=== PATIENT | female | born 1955 | race Caucasian/White ===

== ENCOUNTER 2021-10-07 10:01 | Outpatient (REF) | payer MEDICARE, SELFPAY ==
[2021-10-07 11:26] LABS: MANUAL DIFF FLAG NO
[2021-10-07 11:34] LABS: Basophils Percent Auto 0.7 % (0-2); Hematocrit 41.6 % (37.0-47.0); Hemoglobin 13.7 g/dl (12.0-16.0); Imm Gran Abs Auto 0.02 X10*3/uL (0.00-0.03); Imm Gran Pct Auto 0.3 % (0.0-0.4); Lymphocytes Percent Auto 16.9 % (20-40); Mean Corpuscular HGB Conc 32.9 g/dl (31.0-35.0); Mean Corpuscular Hemoglobin 30.8 pg (27.0-33.0); Mean Corpuscular Volume 93.5 fL (80.0-98.0); Mean Platelet Volume 9.3 fL (9.4-12.3); Monocytes Absolute Auto 0.9 X10*3/uL (0.1-1.2); Monocytes Percent Auto 14.5 % (2-11); Neutrophils Absolute Auto 4.1 x10*3/uL (2.0-8.3); Neutrophils Percent Auto 67.6 % (45-73); Platelet Count 238 X10*3/uL (160-400); Red Blood Count 4.45 X10*6/uL (4.20-5.50); Red Cell Distribution Width 13.2 % (11.0-16.0); White Blood Count 6.1 X10*3/uL (4.8-10.8)
[2021-10-07 11:44] LABS: Appearance Urine HAZY; Color Urine YELLOW; Glucose Urine UA NEG (NEG); Leukocyte Esterase Urine NEG (NEG); Nitrite Urine NEG (NEG); PH 5.5 (5.0-8.0); Specific Gravity - Urine >= 1.030 (1.005-1.025); Urine Blood NEG (NEG); Urine Ketones 5 MG/DL (NEG); Urine Protein NEG (NEG-TRACE)
[2021-10-07 12:04] LABS: Alanine Aminotransferase 28 U/L (0-31); Albumin Level 3.8 g/dL (3.5-5.0); Alkaline Phosphatase 109 U/L (39-117); Anion Gap 13 (12-20); Aspartate Amino Transferase 34 U/L (5-31); Bilirubin Total 0.8 mg/dL (0.0-1.0); Blood Urea Nitrogen 23 mg/dL (9-16); Calcium 9.9 mg/dL (8.4-10.2); Carbon Dioxide 25 mmol/L (22-29); Chloride 107 mmol/L (96-108); Cholesterol 190 mg/dL; Estimated Glomerular Filt Rate > 60; Glucose Fasting 110 mg/dL (60-99); HDL Cholesterol 35 mg/dL; LDL Cholesterol Calculated 121 mg/dl; Potassium 4.3 mmol/L (3.3-5.1); Sodium 141 mmol/L (135-145); Total Protein 7.2 g/dL (6.5-8.0); Triglycerides 174 mg/dL
[2021-10-07 12:12] LABS: TSH reflex Free T4 3.04 uIU/mL (0.32-4.0)
[2021-10-07 12:13] LABS: Creatinine Urine 206.72 mg/dL; Microalbum/Creatinine Ratio Ur 8.2 ug/mg cr
[2021-10-07 12:20] LABS: Erythrocyte Sedimentation Rate 12 MM/HR (0-20)
== END 2021-10-07 10:02 | disposition home or self-care (01) ==
LOC: HO.WFDLDS 10:01
PROVIDERS: Visit Provider Family Medicine
DX: Z00.00 Encounter for general adult medical examination without abnormal findings (principal); M19.90 Unspecified osteoarthritis, unspecified site; I10 Essential (primary) hypertension
CPT/HCPCS: 36415; 80053; 80061; 81003; 82043; 84443; 85025; 85652

== ENCOUNTER 2022-08-10 12:33 | Outpatient (REF) | payer MEDICARE, SELFPAY ==
[2022-08-10 15:05] LABS: Alanine Aminotransferase 30 U/L (0-31); Albumin Level 3.7 g/dL (3.5-5.0); Alkaline Phosphatase 86 U/L (39-117); Anion Gap 11 (12-20); Aspartate Amino Transferase 29 U/L (5-31); Bilirubin Total 0.9 mg/dL (0.0-1.0); Blood Urea Nitrogen 29 mg/dL (9-16); Calcium 9.2 mg/dL (8.4-10.2); Carbon Dioxide 28 mmol/L (22-29); Chloride 108 mmol/L (96-108); Estimated Glomerular Filt Rate > 60; Glucose Random 142 mg/dL (60-115); Potassium 4.1 mmol/L (3.3-5.1); Sodium 143 mmol/L (135-145)
== END 2022-08-10 12:34 | disposition home or self-care (01) ==
LOC: HO.WFDLDS 12:33
PROVIDERS: Visit Provider Family Medicine
DX: M54.9 Dorsalgia, unspecified (principal)
CPT/HCPCS: 36415; 80053

== ENCOUNTER 2022-10-21 15:24 | Outpatient (REF) | payer MEDICARE, SELFPAY ==
[2022-10-21 17:07] LABS: Appearance Urine Clear; Color Urine Dark Yellow; Glucose Urine UA Negative (Negative); Leukocyte Esterase Urine Negative (Negative); Nitrite Urine Negative (Negative); Specific Gravity - Urine 1.015 (1.005-1.025); Urine Blood Negative (Negative); Urine Ketones Negative (Negative); Urine Protein Negative (Neg-Trace)
== END 2022-10-21 15:25 | disposition home or self-care (01) ==
LOC: HO.LAB 15:24
PROVIDERS: Visit Provider Nurse Practitioner Family
DX: R10.9 Unspecified abdominal pain (principal)
CPT/HCPCS: 81003

== ENCOUNTER 2022-11-10 09:14 | Outpatient (REF) | payer MEDICARE, SELFPAY ==
[2022-11-10 11:15] LABS: MANUAL DIFF FLAG NO
[2022-11-10 11:31] LABS: Basophils Absolute Auto 0.1 X10*3/uL (0.0-0.2); Basophils Percent Auto 0.9 % (0-2); Eosinophils Percent Auto 0.2 % (0-4); Hematocrit 40.5 % (37.0-47.0); Hemoglobin 13.2 g/dl (12.0-16.0); Imm Gran Abs Auto 0.01 X10*3/uL (0.00-0.03); Imm Gran Pct Auto 0.2 % (0.0-0.4); Lymphocytes Absolute Auto 0.9 X10*3/uL (1.2-4.9); Mean Corpuscular HGB Conc 32.6 g/dl (31.0-35.0); Mean Corpuscular Hemoglobin 30.6 pg (27.0-33.0); Mean Corpuscular Volume 93.8 fL (80.0-98.0); Mean Platelet Volume 8.9 fL (9.4-12.3); Monocytes Absolute Auto 0.7 X10*3/uL (0.1-1.2); Monocytes Percent Auto 12.5 % (2-11); Neutrophils Absolute Auto 3.8 x10*3/uL (2.0-8.3); Neutrophils Percent Auto 69.2 % (45-73); Platelet Count 236 X10*3/uL (160-400); Red Blood Count 4.32 X10*6/uL (4.20-5.50); White Blood Count 5.5 X10*3/uL (4.8-10.8)
[2022-11-10 11:50] LABS: Alanine Aminotransferase 30 U/L (0-31); Albumin Level 3.7 g/dL (3.5-5.0); Alkaline Phosphatase 94 U/L (39-117); Anion Gap 14 (12-20); Aspartate Amino Transferase 41 U/L (5-31); Blood Urea Nitrogen 26 mg/dL (9-16); Calcium 9.1 mg/dL (8.4-10.2); Carbon Dioxide 23 mmol/L (22-29); Chloride 108 mmol/L (96-108); Estimated Glomerular Filt Rate > 60; Glucose Random 112 mg/dL (60-115); Potassium 4.1 mmol/L (3.3-5.1); Sodium 141 mmol/L (135-145)
[2022-11-10 12:09] LABS: Erythrocyte Sedimentation Rate 16 MM/HR (0-20)
== END 2022-11-10 09:15 | disposition home or self-care (01) ==
LOC: HO.WFDLDS 09:14
PROVIDERS: Visit Provider Family Medicine
DX: Z00.00 Encounter for general adult medical examination without abnormal findings (principal); M54.9 Dorsalgia, unspecified
CPT/HCPCS: 36415; 80053; 85025; 85652; 86141

== ENCOUNTER 2023-01-25 14:38 | Outpatient (AMB) | payer MEDICARE, SELFPAY ==
[2023-01-25 15:02] VITALS: BP 132/72; PULSE 96; O2SAT 96; BMI 29.1
--- NOTE | 2023-01-25 15:02 | A.OFFPC_ITS ---
Vital Signs 01/25/23 15:02 Height 5 ft 1 in Weight 154 lb 2 oz BMI 29.1 BP 132/72 Blood Pressure Location Lt brachial Position Sitting Pulse 96 Pulse Source Pulse Oximeter Pulse Oximetry (%) 96 Oxygen Delivery Method Room Air Intake Visit Reasons: f/u htn & chronic conditions Intake Note: Patient is here for follow up on hypertension and chronic conditions, patient is complaining of pain all over her body. Allergies No Known Allergies Allergy (Verified 01/25/23 15:04) Tobacco use date assessed: 01/25/23 Fall risk assessment: No Falls in past year Last assessed Fall Risk: 01/25/23 Dental Screening Dental Screen Date: 01/25/23 Did you have a dental visit in the last 12 months?: Yes Did you have a dental problem in the last 6 months where you did not have access to dental care?: No Was dental information given to patient?: No HPI f/u htn & chronic conditions HPI Details 67 y/o female presents to f/u hypertension and chronic conditions. Blood pressure today is 132/72. She is on irbesartan 150 mg and metoprolol 12.5mg daily. She reports she has not been able to tolerate the cymbalta for her pain/depression - she reports it had upset her stomach. [facility] Medical History Diverticulitis History of kidney stones History of shingles Surgical History H/O arthroscopic knee surgery History of carpal tunnel surgery History of hernia surgery History of hysterectomy History of tubal ligation Social History Housing: House Patient Tobacco Use Status: Former Tobacco user e-Cigarette/Vaping Use: Never Used Second Hand Smoke Exposure: No service: No Current occupational status: retired Current occupational exposures/hazards: No Cognitive needs: No Hearing needs: No Vision needs: No Questionnaire Thrive Questionnaire Date Thrive assessed: 07/25/22 MILEAN-7 AMB Questionnaire MILENA-7 Date MILENA - 7 assessed: 07/25/22 Source: Developed by Drs. Elmo Barahona, Tory Anderson, Derick Sahni and colleagues, with an educational ramirez from [employer]. Review of Systems Const Denies chills, Denies fatigue, Denies fever(s), Denies headache(s) and Denies weakness ENT Denies dizziness and Denies headache(s) Card Denies chest pain, Denies lightheadedness, Denies dyspnea and Denies other (Palpitations) Resp Denies cough, Denies dyspnea, Denies wheezing and Denies other ( shortness of breath) Musc Denies numbness and Denies tingling Neuro Denies dizziness, Denies headache(s), Denies numbness, Denies tingling, Denies paresthesias and Denies weakness Psych Denies anxiety and Denies depression Endo Denies fatigue Aller/Immun Denies wheezing Physical exam (Primary Care) Vital Signs: Last Vital Signs Pulse 96 01/25/23 15:02 BP 132/72 01/25/23 15:02 Pulse Ox 96 01/25/23 15:02 Oxygen Delivery Method Room Air 01/25/23 15:02 BMI result Body Mass Index 29.1 Tobacco/Smoking Status: Tobacco use Status Tobacco use date assessed 01/25/23 01/25/23 15:11 Patient Tobacco Use Status Former Tobacco user 01/25/23 15:11 e-Cigarette/Vaping Use Never Used 01/25/23 15:03 Thrive Assessment: Date of Thrive Assessment Date Thrive assessed 07/25/22 01/25/23 15:03 Const General: no acute distress and well developed Nutritional Appearance: well nourished Orientation/consciousness: patient oriented x3 HENMT Head: Yes normocephalic and Yes atraumatic Eyes General: appearance normal, both eyes and all related structures Pupils: Equal, round and reactive pupils present EOM: EOMs intact bilaterally Resp Effort & Inspection: normal respiratory effort Auscultation: clear to auscultation bilaterally Cardio Rate: regular rate Rhythm: regular rhythm Heart sounds: S1 normal heart sound present, S2 normal heart sound present, no gallops, no murmurs and no rubs Neuro General: patient oriented x3 and gait normal Cranial nerves: Yes Equal, round and reactive pupils present Psych Affect: normal affect Assessment and Plan Assessment & Plan (1) Essential hypertension: Code(s): I10 - Essential (primary) hypertension Plan: Blood pressure is controlled. Goal is less than 140/90 Continue current medication regimen (2) Back pain: Code(s): M54.9 - Dorsalgia, unspecified Plan: History of fibromyalgia but also osteoarthritis and ongoing chronic back pain. She has appointment with rheumatology (3) Fibromyalgia: Code(s): M79.7 - Fibromyalgia Plan: Tried duloxetine but this bothered the patient's stomach Encouraged regular exercise Medications: Discontinued duloxetine Discontinued Reason: Patient no longer taking 20 mg (0.6667 x 30 mg) PO DAILY 30 days 20 caps 1RF M54.9 - Dorsalgia, unspecified, M79.7 - Fibromyalgia Coding Level of Care Code Est Pt Level 4 (29104) Diagnoses Essential hypertension I10 Back pain M54.9 Fibromyalgia M79.7
== END 2023-01-25 15:51 | disposition home or self-care (01) ==
PROVIDERS: PCP Family Medicine; Visit Provider Family Medicine
DX: I10 Essential (primary) hypertension (principal); M54.9 Dorsalgia, unspecified; M79.7 Fibromyalgia
CPT/HCPCS: 99214

== ENCOUNTER 2023-02-02 12:50 | Outpatient (AMB) | payer MEDICARE, SELFPAY ==
--- NOTE | 2023-02-02 12:59 | A.OFFVIS_ITS ---
Intake Vital Signs 02/02/23 13:01 Height 5 ft 1 in Weight 150 lb 9.211 oz BMI 28.4 BP 122/76 Blood Pressure Location Rt brachial Position Sitting Pulse 93 Pulse Source Pulse Oximeter Temp 98.3 F Temp Source Skin Pulse Oximetry (%) 96 Intake Visit Reasons: Dorsalgia Intake Note: New pt presents today for dorsalgia consult. [employer] Manager Required: No Accompanied by: Self / Same As Patient Allergies No Known Allergies Allergy (Verified 02/02/23 13:13) Medication List - Last Reconciled 02/02/23 by Octavio Padilla MD alendronate 70 mg PO QWEEK atorvastatin 80 mg PO DAILY 90 days mrdtgybnjs-clglcipchrrri-cfox 50-325-40 mg 1 - 2 tabs PO DAILY PRN 30 days diclofenac sodium 1% 4 grams topical QID 30 days gabapentin 100 mg PO BEDTIME PRN irbesartan 150 mg PO QAM 90 days metoprolol succinate ER 12.5 mg (1/2 x 25 mg) PO DAILY 90 days nabumetone 500 mg PO BID tramadol 25 mg (1/2 x 50 mg) PO DAILY PRN 14 days zolpidem 5 - 10 mg PO BEDTIME PRN HPI HPI Comments History of Present Illness Details This is a 67-year-old female who presents for evaluation of multiple joint pain. Patient stated that since 1976 she was diagnosed with rheumatoid arthritis after fluid was drained from her wrist. She has been following up with Rheumatology for many years. Patient is unaware whether she was ever on DMARDs. She cannot remember. Most recent he was evaluated by Dr. Smallwood and was told that she has burned out rheumatoid arthritis and her symptoms are due to osteoarthritis. Patient has had left thumb surgery for osteoarthritis. She states that her left foot toes are turning similar to the right foot, this has been ongoing for the last 6 months. She is having low back pain radiating to her right thigh as well as right groin pain. Patient is taking nabumetone currently. She was intermittently taking 25 mg of tramadol which provides some relief. she does not believe she was evaluated by Pain Management before. She broke her left wrist in 2016 which was treated non operatively. She was then st arted on alendronate which she took for about 6 months then stopped it due to GI upset. [facility] Medical History (Updated 02/02/23 @ 13:55 by Octavio Padilla MD) Diverticulitis History of kidney stones History of shingles Surgical History H/O arthroscopic knee surgery H/O hand surgery History of carpal tunnel surgery History of hernia surgery History of hysterectomy History of tubal ligation Family History Family/Other Family history of autoimmune disorder Social History Housing: House Patient Tobacco Use Status: Former Tobacco user e-Cigarette/Vaping Use: Never Used Second Hand Smoke Exposure: No service: No Current occupational status: retired Current occupational exposures/hazards: No Cognitive needs: No Hearing needs: No Vision needs: No Female Reproductive History Menstrual Total pregnancies: 5 Number of Living Children: 2 Ab induced: 2 Ab spontaneous: 1 Review of Systems Const Reports fatigue and Reports weakness Musc Reports back pain, Reports deformity, Reports arthralgias, Reports joint swelling and Reports stiffness Neuro Reports weakness Endo Reports fatigue Physical Exam Vital Signs: Last Vital Signs Temp 98.3 F 02/02/23 13:01 Pulse 93 02/02/23 13:01 BP 122/76 02/02/23 13:01 Pulse Ox 96 02/02/23 13:01 BMI result Body Mass Index 28.4 Const General: cooperative, healthy appearing and comfortable Nutritional Appearance: overweight Orientation/consciousness: patient oriented x3 Limitations: no limitations HEENT Head: Yes normocephalic and Yes atraumatic Mouth: moist mucous membranes Resp Effort & Inspection: normal respiratory effort and able to speak in complete sentences Auscultation: clear to auscultation bilaterally Cardio Rate: regular rate Neuro General: patient oriented x3 Extrem Other: Bilateral soft tissue swelling of wrists. Nontender to palpation. Slight wrist pain bilaterally with full flexion and extension Synovial thickening of her MCPs bilaterally., mild subluxation of PIP is, few Bomoseen neck deformities of both hands No tenderness about patient to her MCPs, PIP is. Negative MCP squeeze test bilaterally Normal range of motion of both elbows and shoulders without pain Right groin pain with hip flexion, adduction and external rotation. No ankle swelling , warmth or tenderness bilaterally Deformities of both toes with bunions, bunionette and fibular deviation bilaterally. Few MTP tenderness Assessment & Plan Assessment & Plan (1) Rheumatoid arthritis: Code(s): M06.9 - Rheumatoid arthritis, unspecified Plan: This is a 67-year-old female who presents for evaluation of multiple joint pain. She states that she was diagnosed with rheumatoid arthritis in 1976 after fluid was pulled from her right wrist. Patient cannot remember whether she was ever on DMARDs. On exam patient has multiple RA deformities, however her RA might be burnt out. She states however that her left foot toes are turning and this has been happening for the last 6 months. Will check labs to evaluate disease activity. The majority of her pain today however is likely due to osteoarthritis. the majority of patient's pain today is in her back and hip. Will check x-rays of involved joints. Referred patient to pain management to consider therapeutic interventions such as steroid injections. (2) Osteoporosis: Code(s): M81.0 - Age-related osteoporosis without current pathological fracture Plan: She had a left wrist fracture in 2017. She was on alendronate for 6 months then stopped due to GI upset. Alendronate was represcribed recently but patient isn't taking it regularly. She states that she cannot get a repeat DEXA scan until next year. Will check a DEXA scan next year and re-evaluate her bone density Plan I spent 47 minutes reviewing patient's chart, evaluating patient, ordering diagnostic workup, counseling patient and documenting in the chart Orders: Orders XR foot LT min 3V Today M06.9 - Rheumatoid arthritis, unspecified XR foot RT min 3V Today M06.9 - Rheumatoid arthritis, unspecified XR hand wrist LT Today M06.9 - Rheumatoid arthritis, unspecified XR hand wrist RT Today M06.9 - Rheumatoid arthritis, unspecified XR hip LT min 2V Today M06.9 - Rheumatoid arthritis, unspecified XR hip RT min 2V Today M06.9 - Rheumatoid arthritis, unspecified XR lumbar spine 4V min Today M06.9 - Rheumatoid arthritis, unspecified Complete Blood Count Auto Diff Today M06.9 - Rheumatoid arthritis, unspecified Comprehensive Met. Panel Today M06.9 - Rheumatoid arthritis, unspecified C Reactive Protein Today M06.9 - Rheumatoid arthritis, unspecified Erythrocyte Sedimentation Rate Today M06.9 - Rheumatoid arthritis, unspecified Hepatitis A,B,C Profile Today Z11.59 - Encounter for screening for other viral diseases Immunofixation Pnl, Serum Today M06.9 - Rheumatoid arthritis, unspecified Protein Electrophoresis, Serum Today M06.9 - Rheumatoid arthritis, unspecified T Spot TB Today Z11.7 - Encounter for testing for latent tuberculosis infection Rheumatoid Factor Today M06.9 - Rheumatoid arthritis, unspecified Cyclic Citrullinated Peptide Today M06.9 - Rheumatoid arthritis, unspecified Referrals Pain Management Referral M54.9 - Dorsalgia, unspecified Coding Level of Care Code New Pt Level 4 (95285) Diagnoses Rheumatoid arthritis M06.9 Osteoporosis M81.0
[2023-02-02 13:01] VITALS: BP 122/76; PULSE 93; TEMP 36.8; O2SAT 96; BMI 28.4
== END 2023-02-02 13:45 | disposition home or self-care (01) ==
PROVIDERS: PCP Family Medicine; Visit Provider Student in an Organized Health Care Education/Training Program
DX: M06.9 Rheumatoid arthritis, unspecified (principal); M81.0 Age-related osteoporosis without current pathological fracture
CPT/HCPCS: 99204

== ENCOUNTER → 2023-02-02 12:50 | Outpatient (BNVA) | payer MEDICARE, SELFPAY | PROVIDERS: PCP Family Medicine; Visit Provider Student in an Organized Health Care Education/Training Program | DX: M81.0 Age-related osteoporosis without current pathological fracture (principal); M06.9 Rheumatoid arthritis, unspecified | CPT/HCPCS: 99202 ==

== ENCOUNTER 2023-02-14 09:48 | Outpatient (REF) | payer MEDICARE, SELFPAY ==
[2023-02-14 11:28] LABS: MANUAL DIFF FLAG NO
[2023-02-14 12:01] LABS: Rheumatoid Factor < 13.0 IU/mL (<15.0)
[2023-02-14 12:02] LABS: Basophils Percent Auto 0.7 % (0-2); Eosinophils Percent Auto 0.5 % (0-4); Hematocrit 40.8 % (37.0-47.0); Hemoglobin 13.8 g/dl (12.0-16.0); Imm Gran Abs Auto 0.03 X10*3/uL (0.00-0.03); Imm Gran Pct Auto 0.5 % (0.0-0.4); Lymphocytes Absolute Auto 0.8 X10*3/uL (1.2-4.9); Lymphocytes Percent Auto 15.1 % (20-40); Mean Corpuscular HGB Conc 33.8 g/dl (31.0-35.0); Mean Corpuscular Hemoglobin 30.9 pg (27.0-33.0); Mean Corpuscular Volume 91.5 fL (80.0-98.0); Mean Platelet Volume 9.1 fL (9.4-12.3); Monocytes Absolute Auto 0.7 X10*3/uL (0.1-1.2); Monocytes Percent Auto 13.1 % (2-11); Neutrophils Absolute Auto 3.8 x10*3/uL (2.0-8.3); Neutrophils Percent Auto 70.1 % (45-73); Platelet Count 226 X10*3/uL (160-400); Red Blood Count 4.46 X10*6/uL (4.20-5.50); Red Cell Distribution Width 13.2 % (11.0-16.0); White Blood Count 5.5 X10*3/uL (4.8-10.8)
[2023-02-14 12:33] LABS: Alanine Aminotransferase 29 U/L (0-31); Albumin Level 3.9 g/dL (3.5-5.0); Alkaline Phosphatase 86 U/L (39-117); Anion Gap 14 (12-20); Aspartate Amino Transferase 35 U/L (5-31); Bilirubin Total 0.7 mg/dL (0.0-1.0); Blood Urea Nitrogen 19 mg/dL (9-16); Calcium 9.5 mg/dL (8.4-10.2); Carbon Dioxide 24 mmol/L (22-29); Chloride 109 mmol/L (96-108); Estimated Glomerular Filt Rate > 60; Glucose Random 121 mg/dL (60-115); Potassium 3.9 mmol/L (3.3-5.1); Sodium 143 mmol/L (135-145); Total Protein 7.3 g/dL (6.5-8.0)
[2023-02-14 12:40] LABS: Erythrocyte Sedimentation Rate 13 MM/HR (0-20)
[2023-02-15 08:30] LABS: HBS Num1 0.08 mIU/mL (0-7.99); HBc Num1 0.18 S/CO (0.00-0.79); HBsAGNum1 0.46 S/CO (0.00-0.99); Hepatitis A Antibody IgM 0.21 Index (0-0.79); Hepatitis B Core Antibody Nonreactive (Nonreactive); Hepatitis B Surface Antigen Negative (Negative); ~HepC Num1 0.07 S/CO (0.00-0.79); ~Hepatitis A Antibody IgM Nonreactive (Nonreactive); ~Hepatitis B Surface Antibody NONREACTIVE (Nonreactive); ~Hepatitis C Antibody Nonreactive (Nonreactive)
[2023-02-16 15:14] LABS: Prot Elec - Albumin 4.1 g/dL (3.8-4.8); Prot Elec - Alpha1 0.3 g/dL (0.2-0.3); Prot Elec - Alpha2 0.7 g/dL (0.5-0.9); Prot Elec - Beta 1 0.4 g/dL (0.4-0.6); Prot Elec - Beta 2 0.4 g/dL (0.2-0.5); Prot Elec - Gamma 1.5 g/dL (0.8-1.7); Prot Elec - Total Protein 7.4 g/dL (6.1-8.1)
[2023-02-16 20:38] LABS: TS Negative Control Passed; TS Panel A 0; TS Panel B 1; TS Positive Control Passed; TSpotTB Negative (Negative)
[2023-02-17 11:37] LABS: Cyclic Citrullinated Peptide <16 UNITS
[2023-02-21 10:14] LABS: IgA 286 mg/dL (70-320); IgG 1493 mg/dL (600-1540); IgM 351 mg/dL (50-300)
== END 2023-02-14 09:49 | disposition home or self-care (01) ==
LOC: HO.WFDLDS 09:48
PROVIDERS: Visit Provider Student in an Organized Health Care Education/Training Program
DX: M06.9 Rheumatoid arthritis, unspecified (principal); Z11.59 Encounter for screening for other viral diseases; Z11.7 Encounter for testing for latent tuberculosis infection; Z72.89 Other problems related to lifestyle
CPT/HCPCS: 36415; 80053; 82784; 84165; 85025; 85652; 86140; 86200; 86334; 86431; 86481; 86704; 86706; 86709; 86803; 87340

== ENCOUNTER 2023-02-23 14:07 | Outpatient (REF) | payer MEDICARE, SELFPAY ==
--- NOTE | ~2023-02-23 | XR_ITS ---
EXAMINATION: XR FOOT, RIGHT XR FOOT, LEFT CLINICAL INFORMATION: Rheumatoid arthritis. COMPARISON: Report from left foot radiographs dated 09/02/2013. TECHNIQUE: AP, oblique, and lateral views of the right and left foot. FINDINGS: RIGHT FOOT: Prominent 1st metatarsophalangeal hallux valgus angulation with lateral subluxation of the hallux sesamoids. Mild joint space narrowing with small marginal osteophytes at the 1st metatarsophalangeal joint and hallux sesamoids. Joint space narrowing at the 3rd metatarsophalangeal joint with small marginal osteophytes. Volar subluxation of the proximal phalanx. Mild joint space narrowing with tiny marginal osteophytes at the tarsometatarsal joints. No osseous erosion. No acute fracture. No abnormal soft tissue calcification. LEFT FOOT: First metatarsophalangeal joint hallux valgus attenuation with lateral subluxation of the hallux sesamoids. Mild joint space narrowing with small marginal osteophytes at the 1st metatarsophalangeal joint and hallux sesamoids. Moderate joint space narrowing with prominent marginal osteophytes at the tarsometatarsal joints. No osseous erosion. No fracture or dislocation. Tiny plantar calcaneal spur. XR/XR foot LT min 3V IMPRESSION: RIGHT FOOT: Prominent 1st metatarsophalangeal hallux valgus attenuation with lateral subluxation of the hallux sesamoids and mild degenerative arthritis at the 1st metatarsophalangeal joint and hallux sesamoids. Moderate degenerative arthritis at the 3rd metatarsophalangeal joint with mild plantar subluxation of the proximal phalanx. Mild degenerative arthritis at the tarsometatarsal joints. LEFT FOOT: First metatarsophalangeal joint hallux valgus attenuation with lateral subluxation of the hallux sesamoids and mild degenerative arthritis. Moderate degenerative arthritis at the tarsometatarsal joints.
--- NOTE | ~2023-02-23 | XR_ITS ---
EXAMINATION: XR HAND/WRIST, RIGHT XR HAND/WRIST, LEFT CLINICAL INFORMATION: Rheumatoid arthritis. COMPARISON: None available. TECHNIQUE: PA, oblique, lateral, and scaphoid views of the bilateral hand and wrist. FINDINGS: RIGHT HAND AND WRIST: Severe joint space narrowing with bony remodeling and subchondral sclerosis at the triscaphe and 1st carpometacarpal joints. Prominent marginal osteophytes. Mild joint space narrowing with tiny marginal osteophytes at the distal interphalangeal joints. No osseous erosion. No periarticular osteopenia. No abnormal soft tissue calcification. No acute fracture or dislocation. LEFT HAND AND WRIST: Dorsal subluxation of the middle carpal row with proximal migration. Severe intercarpal joint space narrowing with bony remodeling and marginal osteophytes. Severe joint space narrowing with marginal osteophytes at the triscaphe and 1st carpometacarpal joints. Mild joint space narrowing with small marginal osteophytes scattered throughout the interphalangeal joints. Radiocarpal joint space narrowing with mild subchondral cystic change. No large periarticular erosion. No periarticular osteopenia. Corticated ossification adjacent to the ulnar styloid, consistent with a remote, unfused fracture fragment. No acute fracture or dislocation. XR/XR hand wrist LT IMPRESSION: 1. RIGHT HAND AND WRIST: Severe degenerative arthritis at the triscaphe and 1st carpometacarpal joints with more mild degenerative arthritis at the distal interphalangeal joints. No osseous erosion. 2. LEFT HAND AND WRIST: Severe degenerative arthritis at the triscaphe and 1st carpometacarpal joints as well as at the intercarpal joints. Dorsal subluxation of the middle carpal row with proximal migration. Additional degenerative arthritis scattered throughout the interphalangeal joints.
--- NOTE | ~2023-02-23 | XR_ITS ---
EXAMINATION: XR HAND/WRIST, RIGHT XR HAND/WRIST, LEFT CLINICAL INFORMATION: Rheumatoid arthritis. COMPARISON: None available. TECHNIQUE: PA, oblique, lateral, and scaphoid views of the bilateral hand and wrist. FINDINGS: RIGHT HAND AND WRIST: Severe joint space narrowing with bony remodeling and subchondral sclerosis at the triscaphe and 1st carpometacarpal joints. Prominent marginal osteophytes. Mild joint space narrowing with tiny marginal osteophytes at the distal interphalangeal joints. No osseous erosion. No periarticular osteopenia. No abnormal soft tissue calcification. No acute fracture or dislocation. LEFT HAND AND WRIST: Dorsal subluxation of the middle carpal row with proximal migration. Severe intercarpal joint space narrowing with bony remodeling and marginal osteophytes. Severe joint space narrowing with marginal osteophytes at the triscaphe and 1st carpometacarpal joints. Mild joint space narrowing with small marginal osteophytes scattered throughout the interphalangeal joints. Radiocarpal joint space narrowing with mild subchondral cystic change. No large periarticular erosion. No periarticular osteopenia. Corticated ossification adjacent to the ulnar styloid, consistent with a remote, unfused fracture fragment. No acute fracture or dislocation. XR/XR hand wrist RT IMPRESSION: 1. RIGHT HAND AND WRIST: Severe degenerative arthritis at the triscaphe and 1st carpometacarpal joints with more mild degenerative arthritis at the distal interphalangeal joints. No osseous erosion. 2. LEFT HAND AND WRIST: Severe degenerative arthritis at the triscaphe and 1st carpometacarpal joints as well as at the intercarpal joints. Dorsal subluxation of the middle carpal row with proximal migration. Additional degenerative arthritis scattered throughout the interphalangeal joints.
--- NOTE | ~2023-02-23 | XR_ITS ---
EXAMINATION: XR FOOT, RIGHT XR FOOT, LEFT CLINICAL INFORMATION: Rheumatoid arthritis. COMPARISON: Report from left foot radiographs dated 09/02/2013. TECHNIQUE: AP, oblique, and lateral views of the right and left foot. FINDINGS: RIGHT FOOT: Prominent 1st metatarsophalangeal hallux valgus angulation with lateral subluxation of the hallux sesamoids. Mild joint space narrowing with small marginal osteophytes at the 1st metatarsophalangeal joint and hallux sesamoids. Joint space narrowing at the 3rd metatarsophalangeal joint with small marginal osteophytes. Volar subluxation of the proximal phalanx. Mild joint space narrowing with tiny marginal osteophytes at the tarsometatarsal joints. No osseous erosion. No acute fracture. No abnormal soft tissue calcification. LEFT FOOT: First metatarsophalangeal joint hallux valgus attenuation with lateral subluxation of the hallux sesamoids. Mild joint space narrowing with small marginal osteophytes at the 1st metatarsophalangeal joint and hallux sesamoids. Moderate joint space narrowing with prominent marginal osteophytes at the tarsometatarsal joints. No osseous erosion. No fracture or dislocation. Tiny plantar calcaneal spur. XR/XR foot RT min 3V IMPRESSION: RIGHT FOOT: Prominent 1st metatarsophalangeal hallux valgus attenuation with lateral subluxation of the hallux sesamoids and mild degenerative arthritis at the 1st metatarsophalangeal joint and hallux sesamoids. Moderate degenerative arthritis at the 3rd metatarsophalangeal joint with mild plantar subluxation of the proximal phalanx. Mild degenerative arthritis at the tarsometatarsal joints. LEFT FOOT: First metatarsophalangeal joint hallux valgus attenuation with lateral subluxation of the hallux sesamoids and mild degenerative arthritis. Moderate degenerative arthritis at the tarsometatarsal joints.
--- NOTE | ~2023-02-23 | XR_ITS ---
EXAMINATION: XR LUMBAR SPINE XR HIP, RIGHT XR HIP, LEFT CLINICAL INFORMATION: Rheumatoid arthritis. COMPARISON: None available. TECHNIQUE: AP, lateral, coned down, and bilateral oblique views of the lumbar spine. AP view of the pelvis with AP and frog-leg lateral views of the right and left hip. FINDINGS: LUMBAR SPINE: Normal vertebral body alignment. The lumbar lordosis is maintained. No acute fracture or subluxation. Moderate loss of intervertebral disc with endplate osteophytes at L3-L4 and L4-L5. Prominent bilateral facet arthropathy at L3 through S1. No concerning lytic or blastic osseous lesion. Prominent vascular calcifications. Right upper quadrant surgical clips. Surgical coils within the anterior abdominal wall. RIGHT HIP: Jxdemqik-fu-hpfios joint space narrowing with mild bony remodeling. Prominent marginal osteophytes with mild femoral neck buttressing. No acute fracture or dislocation. No concerning lytic or blastic osseous lesion. Moderate osteoarthritis at the right sacroiliac joint. No abnormal soft tissue calcification. Surgical coils overlying the pelvis. LEFT HIP: Ofzs-xr-brxmshnn joint space narrowing with marginal osteophytes and minimal femoral neck buttressing. No acute fracture or dislocation. No concerning lytic or blastic osseous lesion. Moderate osteoarthritis at the left sacroiliac joint. No abnormal soft tissue calcification. Surgical coils overlying the pelvis. XR/XR hip RT min 2V IMPRESSION: Lumbar Spine: Kzpiwqof-di-kbuban degenerative disc disease at L3-L4 and L4-L5 with prominent bilateral facet arthropathy at L3 through S1. No concerning lytic or blastic osseous lesion. Right Hip: Severe right hip osteoarthritis with mild femoral neck buttressing. Moderate right sacroiliac joint osteoarthritis. Left Hip: Moderate left hip osteoarthritis with minimal femoral neck buttressing. Moderate left sacroiliac joint osteoarthritis.
--- NOTE | ~2023-02-23 | XR_ITS ---
EXAMINATION: XR LUMBAR SPINE XR HIP, RIGHT XR HIP, LEFT CLINICAL INFORMATION: Rheumatoid arthritis. COMPARISON: None available. TECHNIQUE: AP, lateral, coned down, and bilateral oblique views of the lumbar spine. AP view of the pelvis with AP and frog-leg lateral views of the right and left hip. FINDINGS: LUMBAR SPINE: Normal vertebral body alignment. The lumbar lordosis is maintained. No acute fracture or subluxation. Moderate loss of intervertebral disc with endplate osteophytes at L3-L4 and L4-L5. Prominent bilateral facet arthropathy at L3 through S1. No concerning lytic or blastic osseous lesion. Prominent vascular calcifications. Right upper quadrant surgical clips. Surgical coils within the anterior abdominal wall. RIGHT HIP: Ouiemqqa-sf-cqpfpy joint space narrowing with mild bony remodeling. Prominent marginal osteophytes with mild femoral neck buttressing. No acute fracture or dislocation. No concerning lytic or blastic osseous lesion. Moderate osteoarthritis at the right sacroiliac joint. No abnormal soft tissue calcification. Surgical coils overlying the pelvis. LEFT HIP: Lrkq-bb-ivihyoxf joint space narrowing with marginal osteophytes and minimal femoral neck buttressing. No acute fracture or dislocation. No concerning lytic or blastic osseous lesion. Moderate osteoarthritis at the left sacroiliac joint. No abnormal soft tissue calcification. Surgical coils overlying the pelvis. XR/XR lumbar spine 4V min IMPRESSION: Lumbar Spine: Ycykcdgh-no-jkjupl degenerative disc disease at L3-L4 and L4-L5 with prominent bilateral facet arthropathy at L3 through S1. No concerning lytic or blastic osseous lesion. Right Hip: Severe right hip osteoarthritis with mild femoral neck buttressing. Moderate right sacroiliac joint osteoarthritis. Left Hip: Moderate left hip osteoarthritis with minimal femoral neck buttressing. Moderate left sacroiliac joint osteoarthritis.
--- NOTE | ~2023-02-23 | XR_ITS ---
EXAMINATION: XR LUMBAR SPINE XR HIP, RIGHT XR HIP, LEFT CLINICAL INFORMATION: Rheumatoid arthritis. COMPARISON: None available. TECHNIQUE: AP, lateral, coned down, and bilateral oblique views of the lumbar spine. AP view of the pelvis with AP and frog-leg lateral views of the right and left hip. FINDINGS: LUMBAR SPINE: Normal vertebral body alignment. The lumbar lordosis is maintained. No acute fracture or subluxation. Moderate loss of intervertebral disc with endplate osteophytes at L3-L4 and L4-L5. Prominent bilateral facet arthropathy at L3 through S1. No concerning lytic or blastic osseous lesion. Prominent vascular calcifications. Right upper quadrant surgical clips. Surgical coils within the anterior abdominal wall. RIGHT HIP: Lcvayjzf-ko-pfkigw joint space narrowing with mild bony remodeling. Prominent marginal osteophytes with mild femoral neck buttressing. No acute fracture or dislocation. No concerning lytic or blastic osseous lesion. Moderate osteoarthritis at the right sacroiliac joint. No abnormal soft tissue calcification. Surgical coils overlying the pelvis. LEFT HIP: Nget-ru-uulmpbwy joint space narrowing with marginal osteophytes and minimal femoral neck buttressing. No acute fracture or dislocation. No concerning lytic or blastic osseous lesion. Moderate osteoarthritis at the left sacroiliac joint. No abnormal soft tissue calcification. Surgical coils overlying the pelvis. XR/XR hip LT min 2V IMPRESSION: Lumbar Spine: Rzgmjqmh-pp-verpoh degenerative disc disease at L3-L4 and L4-L5 with prominent bilateral facet arthropathy at L3 through S1. No concerning lytic or blastic osseous lesion. Right Hip: Severe right hip osteoarthritis with mild femoral neck buttressing. Moderate right sacroiliac joint osteoarthritis. Left Hip: Moderate left hip osteoarthritis with minimal femoral neck buttressing. Moderate left sacroiliac joint osteoarthritis.
== END 2023-02-23 14:08 | disposition home or self-care (01) ==
LOC: HO.XRAY 14:07
PROVIDERS: PCP Family Medicine; Visit Provider Student in an Organized Health Care Education/Training Program
DX: M06.9 Rheumatoid arthritis, unspecified (principal); M16.0 Bilateral primary osteoarthritis of hip; M20.12 Hallux valgus (acquired), left foot; M20.11 Hallux valgus (acquired), right foot; M51.36 Other intervertebral disc degeneration, lumbar region
CPT/HCPCS: 72110; 73110; 73130; 73502; 73630

== ENCOUNTER 2023-03-08 10:26 | Outpatient (AMB) | payer MEDICARE, SELFPAY ==
--- NOTE | 2023-03-08 10:44 | A.OFFVIS_ITS ---
Intake Vital Signs 03/08/23 10:50 Height 5 ft 1 in Weight 152 lb BMI 28.7 BP 138/90 H Blood Pressure Location Rt brachial Position Sitting Respiration 14 Pulse 96 Pulse Source Pulse Oximeter Pulse Oximetry (%) 97 Oxygen Delivery Method Room Air Intake Visit Reasons: Dorsalgia//Confirmed Intake Note: patient comes in for initial visit was referred by pcp. Allergies No Known Allergies Allergy (Verified 03/08/23 10:48) HPI HPI Comments History of Present Illness Details Samantha is very pleasant 67 years old female who presents in my office with complains on multiple pain generators all related to rheumatoid arthritis and osteoarthritis. She was referred to my office by her nitroglycerin neutralizer Dr. Medina. She reports pain in bilateral shoulders pain in bilateral wrists pain in bilateral groins pain in bilateral knees pain in the back without radiation into the lower extremities and pain in the neck. Most pain which is bothering her pain in bilateral shoulders and pain in bilateral knees most likely related to the bilateral hip arthritis. She reports that she cannot sleep normally because of her pain she can not do activities of daily living with difficulty she cannot take care of herself but she cannot function normally. She is retired individual. She reports that weather changes in movements aggravate her pain. Topical medications and oral medications make her pain better. She reports her pain without variation 5/10 to 8/10 on regular basis. In terms of tissue damage she reports her pain is stabbing, lancinating, dull, hurting, heavy, tiring, exhausting, spreading, radiating, piercing, tight, squeezing, tearing. She had significant chiropractic manipulations in the past without any success to treat her pain, she had massage therapy without significant improvement. She is taking tramadol 50 mg p.r.n. for her pain and she never had injections for her pain. She was diagnosed with significant osteoporosis so kvng roid injections might be relatively contraindicated for this patient. Her past medical history significant for headaches hypertension fatigue dizziness and fainting history of kidney stones and gallstones history of GERD and history of rheumatoid arthritis. She had in the past to ends arthroscopic knee surgery carpal tunnel surgery and surgeries related to arthritis. Past social history she is retired individual. She smokes cigarettes but stopped in 1989 she denies drinking alcohol she drinks caffeinated beverages and soda and she denies using recreational drugs. She had x-rays in [facility]'s which are available for review. See the reports as below. [facility] Medical History (Updated 03/08/23 @ 11:32 by Alfredo Pham MD) Osteoporosis History of kidney stones History of shingles Diverticulitis Surgical History H/O hand surgery History of hysterectomy History of tubal ligation History of hernia surgery History of carpal tunnel surgery H/O arthroscopic knee surgery Family History Family/Other Family history of autoimmune disorder Social History Housing: House Patient Tobacco Use Status: Former Tobacco user e-Cigarette/Vaping Use: Never Used Second Hand Smoke Exposure: No service: No Current occupational status: retired Current occupational exposures/hazards: No Cognitive needs: No Hearing needs: No Vision needs: No Review of Systems Const Reports body aches, Denies chills, Denies excessive sweating, Denies fatigue and Denies fever(s) Card Denies chest pain, Denies chest pain at rest, Denies chest pain with activity, Denies diaphoresis and Denies syncope Resp Denies chest congestion, Denies cough, Denies hemoptysis, Denies pain on inspiration and Denies pain with cough GI Reports as per HPI Reports as per HPI Musc Reports as per HPI, Reports abnormal gait, Reports back pain and Reports arthralgias Neuro Reports abnormal gait, Denies behavioral changes and Denies syncope Psych Denies abnormal sleep pattern, Denies anxiety, Denies behavioral changes, Denies depression and Denies difficulty concentrating Endo Denies excessive sweating, Denies fatigue, Denies flushing, Denies heat intolerance, Denies increase in ring/shoe/hat size, Denies polyphagia and Denies polydipsia Physical Exam Vital Signs: Last Vital Signs Pulse 96 03/08/23 10:50 Resp 14 03/08/23 10:50 BP 138/90 H 03/08/23 10:50 Pulse Ox 97 03/08/23 10:50 Oxygen Delivery Method Room Air 03/08/23 10:50 BMI result Body Mass Index 28.7 Const General: cooperative, healthy appearing and comfortable Nutritional Appearance: overweight Orientation/consciousness: patient oriented x3 Limitations: no limitations HEENT Head: Yes normocephalic and Yes atraumatic Mouth: moist mucous membranes Resp Effort & Inspection: normal respiratory effort, able to speak in complete sentences, normal respiratory pattern, no audible wheezes, no cough and respiratory effort not decreased Auscultation: clear to auscultation bilaterally Cardio Jugular venous distension: no JVD Back/Spine/Pelvis Other: SLR is negative bilaterally. Dimitri test is hard to perform because of the groin discomfort on the test. Pelvis compression is equivocal for pain improvement especially on the left, pelvis destruction is negative for pain increase. Gaenslen test is difficult to perform because of the groin discomfort. No tenderness on palpation on paraspinal spinal region lumbar spine. Nztm-bj-umhvjpsd tenderness on palpation on bilateral sacroiliac joints more to the left and less to the right. Neuro General: patient oriented x3 Extrem Other: Bilateral soft tissue swelling of wrists. Nontender to palpation. Slight wrist pain bilaterally with full flexion and extension Synovial thickening of her MCPs bilaterally., mild subluxation of PIP is, few [place] neck deformities of both hands No tenderness about patient to her MCPs, PIP is. Negative MCP squeeze test bilaterally Normal range of motion of both elbows, admits a limited range of motion on shoulders due to pain. Bilateral more to the right but also on the left groin pain with hip flexion, adduction and external rotation. No ankle swelling , warmth or tenderness bilaterally Deformities of both toes with bunions, bunionette and fibular deviation bilaterally. Few MTP tenderness Results Reviewed Results Reviewed: XR LUMBAR SPINE XR HIP, RIGHT XR HIP, LEFT CLINICAL INFORMATION: Rheumatoid arthritis. COMPARISON: None available. TECHNIQUE: AP, lateral, coned down, and bilateral oblique views of the lumbar spine. AP view of the pelvis with AP and frog-leg lateral views of the right and left hip. FINDINGS: LUMBAR SPINE: Normal vertebral body alignment. The lumbar lordosis is maintained. No acute fracture or subluxation. Moderate loss of intervertebral disc with endplate osteophytes at L3-L4 and L4-L5. Prominent bilateral facet arthropathy at L3 through S1. No concerning lytic or blastic osseous lesion. Prominent vascular calcifications. Right upper quadrant surgical clips. Surgical coils within the anterior abdominal wall. RIGHT HIP: Pwrxnixg-zs-ihimsm joint space narrowing with mild bony remodeling. Prominent marginal osteophytes with mild femoral neck buttressing. No acute fracture or dislocation. No concerning lytic or blastic osseous lesion. Moderate osteoarthritis at the right sacroiliac joint. No abnormal soft tissue calcification. Surgical coils overlying the pelvis. LEFT HIP: Vjtl-mx-fbjyveaz joint space narrowing with marginal osteophytes and minimal femoral neck buttressing. No acute fracture or dislocation. No concerning lytic or blastic osseous lesion. Moderate osteoarthritis at the left sacroiliac joint. No abnormal soft tissue calcification. Surgical coils overlying the pelvis. IMPRESSION: Lumbar Spine: Mpjsaxec-lr-omkjsy degenerative disc disease at L3-L4 and L4-L5 with prominent bilateral facet arthropathy at L3 through S1. No concerning lytic or blastic osseous lesion. Right Hip: Severe right hip osteoarthritis with mild femoral neck buttressing. Moderate right sacroiliac joint osteoarthritis. Left Hip: Moderate left hip osteoarthritis with minimal femoral neck buttressing. Moderate left sacroiliac joint osteoarthritis. Assessment & Plan Assessment & Plan (1) Rheumatoid arthritis: Code(s): M06.9 - Rheumatoid arthritis, unspecified (2) Osteoarthritis, hip, bilateral: Code(s): M16.0 - Bilateral primary osteoarthritis of hip (3) Bilateral hip pain: Code(s): M25.551 - Pain in right hip; M25.552 - Pain in left hip (4) Osteoarthritis, shoulder: Code(s): M19.019 - Primary osteoarthritis, unspecified shoulder (5) Bilateral shoulder pain: Code(s): M25.511 - Pain in right shoulder; M25.512 - Pain in left shoulder (6) Chronic pain syndrome: Code(s): G89.4 - Chronic pain syndrome (7) Sacroiliitis: Code(s): M46.1 - Sacroiliitis, not elsewhere classified (8) Osteoporosis: Code(s): M81.0 - Age-related osteoporosis without current pathological fracture (9) Complex regional pain syndrome i of unspecified lower limb: Code(s): G90.529 - Complex regional pain syndrome I of unspecified lower limb Plan Taking osteoporosis of this patient into consideration I offered her diagnostic intra-articular hip steroid injection without sedation. She agreed to go for this procedure. I also will send her for x-ray of the shoulders to evaluate her shoulders. She could be a good candidate for total shoulder replacement reversed. I will refer her to orthopedic surgeon if significant changes on her shoulders are suspected. If there is no surgery for her shoulders it indicated she is welcome to come back to treat her shoulder pain with neuromodulation. I will see her after the procedure on the hips to evaluate the diagnostic hip injection. If there is significant pain reduction on hip injections I can offer her [employer] SCS for the treatment of Complex regional pain syndrome of the bilateral hip areas. Orders: Orders XR shoulder LT min 2V Today M19.019 - Primary osteoarthritis, unspecified shoulder, M25.511 - Pain in right shoulder, M25.512 - Pain in left shoulder XR shoulder RT min 2V Today M19.019 - Primary osteoarthritis, unspecified shoulder, M25.511 - Pain in right shoulder, M25.512 - Pain in left shoulder Coding Level of Care Code New Pt Level 4 (61166) Diagnoses Rheumatoid arthritis M06.9 Osteoarthritis, hip, bilateral M16.0 Bilateral hip pain M25.551; M25.552 Osteoarthritis, shoulder M19.019 Bilateral shoulder pain M25.511; M25.512 Chronic pain syndrome G89.4 Sacroiliitis M46.1 Osteoporosis M81.0 Complex regional pain syndrome i of unspecified lower limb G90.529
[2023-03-08 10:50] VITALS: BP 138/90; PULSE 96; RESP 14; O2SAT 97; BMI 28.7
== END 2023-03-08 11:33 | disposition home or self-care (01) ==
PROVIDERS: PCP Family Medicine; Visit Provider Anesthesiology
DX: M06.9 Rheumatoid arthritis, unspecified (principal); M16.0 Bilateral primary osteoarthritis of hip; M25.551 Pain in right hip; M25.552 Pain in left hip; M19.019 Primary osteoarthritis, unspecified shoulder; M25.511 Pain in right shoulder; M25.512 Pain in left shoulder; G89.4 Chronic pain syndrome; M46.1 Sacroiliitis, not elsewhere classified; M81.0 Age-related osteoporosis without current pathological fracture; G90.529 Complex regional pain syndrome I of unspecified lower limb
CPT/HCPCS: 99204

== ENCOUNTER → 2023-03-08 10:26 | Outpatient (BNVA) | payer MEDICARE, SELFPAY | PROVIDERS: PCP Family Medicine; Visit Provider Anesthesiology ==

== ENCOUNTER 2023-03-24 10:45 | Outpatient (AMB) | payer MEDICARE, SELFPAY ==
[2023-03-24 10:48] VITALS: BP 128/88; PULSE 95; TEMP 36.8; O2SAT 98; BMI 27.9
--- NOTE | 2023-03-24 10:48 | MHC.OFFVIS ---
Intake Vital Signs 03/24/23 10:48 Height 5 ft 2 in Weight 152 lb 12.485 oz BMI 27.9 BP 128/88 Pulse 95 Temp 98.3 F Pulse Oximetry (%) 98 Oxygen Delivery Method Room Air Intake Visit Reasons: RA/OA Intake Note: Pt seen today for RA/OA follow up and test results. [employer] Required: No Accompanied by: Self / Same As Patient Allergies No Known Allergies Allergy (Verified 03/24/23 10:52) Medication List - Last Reconciled 03/24/23 by Octavio Padilla MD alendronate 70 mg PO QWEEK atorvastatin 80 mg PO DAILY 90 days sourikcyms-czxfumusxkrpi-rzcu 50-325-40 mg 1 - 2 tabs PO DAILY PRN 30 days diclofenac sodium 1% 4 grams topical QID 30 days ferrous sulfate (FeroSul) 325 mg PO DAILY gabapentin 100 mg PO BEDTIME PRN irbesartan 150 mg PO QAM 90 days metoprolol succinate ER 12.5 mg (1/2 x 25 mg) PO DAILY 90 days multivitamin 1 tab PO DAILY nabumetone 500 mg PO BID tramadol 25 mg (1/2 x 50 mg) PO DAILY PRN 14 days zolpidem 5 - 10 mg (0.5 - 1 x 10 mg) PO BEDTIME PRN 30 days HPI HPI Comments History of Present Illness Details 67-year-old female with longstanding seronegative RA returns for follow-up. I reviewed record from the and the which showed negative rheumatoid factor, positive TONY, right wrist synovial fluid with 40 K WBCs. Patient apparently was on hydroxychloroquine for some time and was on prednisone for many years. I could not tell whether patient was on DMARDs. Patient herself does not recall whether she was ever on DMARDs. Patient states that she continues to have pain in both hands associated with specially especially throughout the night. She states that she has had deformities and toes turning in her right foot for years however over the last 6 months to 1 year she has been having worsening deformities and pain in her left foot. Initial history: This is a 67-year-old female who presents for evaluation of multiple joint pain. Patient stated that since 1976 she was diagnosed with rheumatoid arthritis after fluid was drained from her wrist. She has been following up with Rheumatology for many years. Patient is unaware whether she was ever on DMARDs. She cannot remember. Most recent he was evaluated by Dr. Smallwood and was told that she has burned out rheumatoid arthritis and her symptoms are due to osteoarthritis. Patient has had left thumb surgery for osteoarthritis. She states that her left foot toes are turning similar to the right foot, this has been ongoing for the last 6 months. She is having low back pain radiating to her right thigh as well as right groin pain. Patient is taking nabumetone currently. She was intermittently taking 25 mg of tramadol which provides some relief. she does not believe she was evaluated by Pain Management before. She broke her left wrist in 2017 which was treated non operatively. She was then started on alendronate which she took for about 6 months then stopped it due to GI upset. [facility] Medical History Osteoporosis History of kidney stones History of shingles Diverticulitis Surgical History H/O hand surgery History of hysterectomy History of tubal ligation History of hernia surgery History of carpal tunnel surgery H/O arthroscopic knee surgery Family History Family/Other Family history of autoimmune disorder Social History Housing: House Patient Tobacco Use Status: Former Tobacco user e-Cigarette/Vaping Use: Never Used Second Hand Smoke Exposure: No service: No Current occupational status: retired Current occupational exposures/hazards: No Cognitive needs: No Hearing needs: No Vision needs: No Review of Systems Musc Reports back pain, Reports deformity, Reports arthralgias, Reports joint swelling and Reports stiffness Physical Exam Vital Signs: Last Vital Signs Temp 98.3 F 03/24/23 10:48 Pulse 95 03/24/23 10:48 BP 128/88 03/24/23 10:48 Pulse Ox 98 03/24/23 10:48 Oxygen Delivery Method Room Air 03/24/23 10:48 BMI result Body Mass Index 27.9 Const General: cooperative, healthy appearing and comfortable Nutritional Appearance: overweight Orientation/consciousness: patient oriented x3 Limitations: no limitations HEENT Head: Yes normocephalic and Yes atraumatic Mouth: moist mucous membranes Resp Effort & Inspection: normal respiratory effort and able to speak in complete sentences Cardio Rate: regular rate Neuro General: patient oriented x3 Extrem Other: Bilateral soft tissue swelling of wrists. Nontender to palpation. Slight wrist pain bilaterally with full flexion and extension Synovial thickening of her MCPs bilaterally., mild subluxation of PIP is, few [place] neck deformities of both hands No tenderness about patient to her MCPs, PIP is. Negative MCP squeeze test bilaterally Normal range of motion of both elbows and shoulders without pain Right groin pain with hip flexion, adduction and external rotation. No ankle swelling , warmth or tenderness bilaterally Deformities of both toes with bunions, bunionette and fibular deviation bilaterally. Few MTP tenderness Results Reviewed Results Reviewed: Diagnostic workup from 1976? Joint fluid cell count 40,000 TONY positive 1-32 homogeneous + peripheral RA screen negative Per Dr. Elmo Sepulveda in 1976: History of additive polyarthralgias including upper and lower extremities, stiff hands with associated painful grasp, arthrocentesis of the wrist yielded synovial fluid with elevated white cells, she had multiple flexor tenosynovitis on exam, mild symmetrical synovitis of the wrists, bilateral carpal tunnel syndrome 1992? Patient has been maintained on low-dose steroids taper down to 2.5 mg every 3 days TONY 1-160 speckled Macie test negative On hydroxychloroquine 2 tabs daily Assessment & Plan Assessment & Plan (1) Rheumatoid arthritis: Comment: seroneg dx 1976 HCQ for some time in the incomplete records Code(s): M06.9 - Rheumatoid arthritis, unspecified Qualifiers: Rheumatoid arthritis location: multiple sites Rheumatoid factor presence: without rheumatoid factor Qualified Code(s): M06.09 - Rheumatoid arthritis without rheumatoid factor, multiple sites Plan: This is a 67-year-old female with seronegative RA who returns for follow-up. She is not on any DMARDs. Continues to have pain and swelling in her hands. Is getting worsening deformities of her feet especially the left foot, multiple tender MTPs bilaterally. Will need to start DMARDs to prevent further deformity. CsDMARDs such as methotrexate, leflunomide, sulfasalazine would be contraindicated due to transaminitis. I do not believe hydroxychloroquine would be adequate given the severity of her condition. Discussed risks and benefits of TNF inhibitors. Patient agreed to proceed. Will start prior authorization for [employer] before next visit in 3 months Patient requesting tramadol prescription as she cannot get a hold of her PCP. Will prescribe tramadol once. Further refills should be prescribed by her PCP (2) Osteoporosis: Code(s): M81.0 - Age-related osteoporosis without current pathological fracture Qualifiers: Osteoporosis type: age-related Presence of current pathological fracture: without current pathological fracture Qualified Code(s): M81.0 - Age-related osteoporosis without current pathological fracture Plan: She had a left wrist fracture in 2017. She was on alendronate for 6 months then stopped due to GI upset. Alendronate was represcribed recently but patient isn't taking it regularly. She states that she cannot get a repeat DEXA scan until next year. 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 Patient fully aware. Patient has history of basal cell carcinoma that was excised. She gets a yearly skin exam by Dermatology. Advised patient to seek medical care [facility]LA if patient has an infection and advised patient to stop the medication until the infection is resolved. Plan I spent 47 minutes reviewing patient's chart, evaluating patient, ordering diagnostic workup, counseling patient and documenting in the chart Orders: Orders Comprehensive Met. Panel 3 Months M06.9 - Rheumatoid arthritis, unspecified Rheumatoid Factor 3 Months M06.9 - Rheumatoid arthritis, unspecified Complement C3 3 Months M06.9 - Rheumatoid arthritis, unspecified Complete Blood Count Auto Diff 3 Months M06.9 - Rheumatoid arthritis, unspecified C Reactive Protein 3 Months M06.9 - Rheumatoid arthritis, unspecified Erythrocyte Sedimentation Rate 3 Months M06.9 - Rheumatoid arthritis, unspecified Cyclic Citrullinated Peptide 3 Months M06.9 - Rheumatoid arthritis, unspecified Anti Extractable Nuclear Ag 3 Months M06.9 - Rheumatoid arthritis, unspecified Anti DNA DS Antibody 3 Months M06.9 - Rheumatoid arthritis, unspecified Protein Creatinine Ratio, Ur 3 Months M06.9 - Rheumatoid arthritis, unspecified Sjogren's Antibodies 3 Months M06.9 - Rheumatoid arthritis, unspecified UA w Microscopic 3 Months M06.9 - Rheumatoid arthritis, unspecified Complement C4 3 Months M06.9 - Rheumatoid arthritis, unspecified Medications: Refilled tramadol 25 mg (1/2 x 50 mg) PO DAILY 14 days PRN 7 tabs 0RF pain M54.9 - Dorsalgia, unspecified Coding Level of Care Code Est Pt Level 5 (14846) Diagnoses Rheumatoid arthritis of multiple sites with negative rheumatoid factor M06.09 Rheumatoid arthritis location: multiple sites Rheumatoid factor presence: without rheumatoid factor Age-related osteoporosis without current pathological fracture M81.0 Osteoporosis type: age-related Presence of current pathological fracture: without current pathological fracture High risk medication use Z79.899
== END 2023-03-24 11:39 | disposition home or self-care (01) ==
PROVIDERS: PCP Family Medicine; Visit Provider Student in an Organized Health Care Education/Training Program
DX: M06.09 Rheumatoid arthritis without rheumatoid factor, multiple sites (principal); M81.0 Age-related osteoporosis without current pathological fracture; Z79.899 Other long term (current) drug therapy
CPT/HCPCS: 99215

== ENCOUNTER → 2023-03-24 10:45 | Outpatient (BNVA) | payer MEDICARE, SELFPAY | PROVIDERS: PCP Family Medicine; Visit Provider Student in an Organized Health Care Education/Training Program | DX: M06.09 Rheumatoid arthritis without rheumatoid factor, multiple sites (principal); M81.0 Age-related osteoporosis without current pathological fracture; Z79.899 Other long term (current) drug therapy | CPT/HCPCS: 99212 ==

== ENCOUNTER 2023-04-12 11:06 | Outpatient (AMB) | payer MEDICARE, SELFPAY ==
[2023-04-12 11:14] VITALS: BP 140/92; PULSE 97; O2SAT 99; BMI 27.8
--- NOTE | 2023-04-12 11:14 | A.OFFPC_ITS ---
Vital Signs 04/12/23 11:14 Height 5 ft 2 in Weight 152 lb 2 oz BMI 27.8 BP 140/92 H Blood Pressure Location Lt brachial Position Sitting Pulse 97 Pulse Source Pulse Oximeter Pulse Oximetry (%) 99 Oxygen Delivery Method Room Air Intake Visit Reasons: CPE with f/u labs and health maintenance Intake Note: Patient is here for her physical and follow up on labs. Allergies No Known Allergies Allergy (Verified 04/12/23 11:20) Tobacco use date assessed: 04/12/23 HPI CPE with f/u labs and health maintenance HPI Details 67 y/o female presents for a CPE with f/ u labs and health maintenance. Labs were drawn 02/14/23. Reviewed labs with pt. Elevated AST of 35 but has improved from prior. No recent lipid panel. She is on artovastatin 80mg daily. [facility] Medical History Osteoporosis History of kidney stones History of shingles Diverticulitis Surgical History H/O hand surgery History of hysterectomy History of tubal ligation History of hernia surgery History of carpal tunnel surgery H/O arthroscopic knee surgery Family History Family/Other Family history of autoimmune disorder Social History Housing: House Patient Tobacco Use Status: Former Tobacco user e-Cigarette/Vaping Use: Never Used Second Hand Smoke Exposure: No service: No Current occupational status: retired Current occupational exposures/hazards: No Cognitive needs: No Hearing needs: No Vision needs: No Questionnaire Thrive Questionnaire Date Thrive assessed: 07/25/22 MILENA-7 AMB Questionnaire MILENA-7 Date MILENA - 7 assessed: 07/25/22 Source: Developed by Drs. Elmo Barahona, Tory Anderson, Derick Sahni and colleagues, with an educational ramirez from [employer]. Review of Systems Const Denies chills, Denies fatigue, Denies fever(s), Denies headache(s) and Denies weakness Eyes Denies change in vision ENT Denies dizziness, Denies headache(s), Denies hearing loss, Denies nasal congestion, Denies sinus pain, Denies sinus pressure and Denies sore throat Card Denies chest pain, Denies lightheadedness, Denies dyspnea and Denies other (palpitations) Resp Denies cough, Denies dyspnea and Denies wheezing GI Denies abdominal pain, Denies melena, Denies hematochezia, Denies change in bowel habits, Denies dyspepsia and Denies nausea Denies hematuria and Denies dysuria Musc Denies abnormal gait, Denies myalgias, Denies arthralgias, Denies numbness and Denies tingling Skin/Breast Denies rash, Denies unusual bruising and Denies wounds Neuro Denies abnormal gait, Denies dizziness, Denies headache(s), Denies memory loss, Denies numbness, Denies Sensory deficit (Neuro), Denies tingling and Denies weakness Psych Denies anxiety, Denies depression and Denies memory loss Endo Denies cold intolerance, Denies fatigue, Denies heat intolerance, Denies polydipsia and Denies polyuria Philippe/Lymph Denies easy bleeding and Denies easy bruising Aller/Immun Denies wheezing Physical exam (Primary Care) Vital Signs: Last Vital Signs Pulse 97 04/12/23 11:14 BP 140/92 H 04/12/23 11:14 Pulse Ox 99 04/12/23 11:14 Oxygen Delivery Method Room Air 04/12/23 11:14 BMI result Body Mass Index 27.8 Tobacco/Smoking Status: Tobacco use Status Tobacco use date assessed 04/12/23 04/12/23 11:20 Patient Tobacco Use Status Former Tobacco user 04/12/23 11:20 e-Cigarette/Vaping Use Never Used 04/12/23 11:20 Thrive Assessment: Date of Thrive Assessment Date Thrive assessed 07/25/22 04/12/23 11:20 Const General: no acute distress, well developed, alert and awake Nutritional Appearance: well nourished Orientation/consciousness: patient oriented x3 HENMT Head: Yes normocephalic and Yes atraumatic Ears: hearing grossly normal bilaterally and TM's normal bilaterally General nose exam: Normal external nose present and Normal nares present Mouth: Normal oral and palatal mucosa present and moist mucous membranes Teeth and gingiva: dentition normal Throat: Yes posterior oropharynx normal Eyes General: appearance normal, both eyes and all related structures Pupils: Equal, round and reactive pupils present and Pupil accommodation reflex normal EOM: EOMs intact bilaterally Neck Neck: Yes normal visual inspection, Yes no lymphadenopathy and Yes trachea midline Thyroid: Thyroid normal Carotids: no bruits Lymphatic: no lymphadenopathy noted Chest Chest palpation & inspection: normal inspection of the chest Resp Effort & Inspection: normal respiratory effort Auscultation: clear to auscultation bilaterally Cardio Rate: regular rate Rhythm: regular rhythm Heart sounds: S1 normal heart sound present, S2 normal heart sound present, no gallops, no murmurs and no rubs Bruits: no abdominal aortic bruits and no carotid bruits GI Palpation (GI): No Abdominal aortic bruit present, Soft to palpation, nontender, No hepatosplenomegaly present and No Rebound tenderness present Auscultation: normal bowel sounds General: Yes no CVA tenderness Back/Spine/Pelvis Back: no CVA tenderness Cervical Spine: cervical ROM normal and No Cervical spine tenderness Thoracic/Lumbar Spine: thoraco-lumbar ROM normal, No pain with thoraco-lumbar ROM, No thoracic spinal tenderness and No lumbar spinal tenderness Skin Lesions: no lesions Rashes: no rashes Trauma: no lacerations or abrasions Wounds: no wounds Nails: normal Neuro General: patient oriented x3 Cranial nerves: Yes Equal, round and reactive pupils present Cognition (Neuro): normal cognition Gait exam (Neuro): Normal gait present Motor exam (neuro): 5/5 motor strength present throughout Sensory Exam: No Sensory deficit (Neuro) Deep tendon reflexes (DTR's): Right patellar reflex intensity grade: 2+ and Left patellar reflex intensity grade: 2+ Extrem General: Yes normal to inspection and No edema Psych Appearance: grossly normal Affect: normal affect Attitude: cooperative Thought process: Normal thought process present Assessment and Plan Assessment & Plan (1) Adult general medical exam: Code(s): Z00.00 - Encounter for general adult medical examination without abnormal findings Plan: 67-year-old?female?presents?for?complete?physical?exam (2) Hyperlipidemia: Code(s): E78.5 - Hyperlipidemia, unspecified Plan: Last?lipids?drawn?over?a?year?ago?were?okay. She?is?on?atorvastatin?80?mg?daily We?can?recheck?lipid?panel?with?her?next?blood?draw (3) Chronic pain syndrome: Code(s): G89.4 - Chronic pain syndrome Plan: Ongoing?chronic?back?pain?and?joint?pain. Followed?by?rheumatology?and?pain?management. Rheu matology?is?working?on?getting?DMARDs?approved?by?insurance?but?so?far?she?is?no t?been?able?to?start?them?due?to?cost. Pain?management?is?considering?diagnostic?injections Patient?has?benefited?from? small?doses?of?tramadol.??Will?continue?these?and?I?have?had?her?sign?a?pain?con tract?today. We?discussed?pros?and?cons?of?opioid?therapy.??She?may?be?able?to?discontinue?th is?if?DMARDs?and?other?treatments?are?working?well. (4) Screening for colon cancer: Code(s): Z12.11 - Encounter for screening for malignant neoplasm of colon (5) Back pain: Code(s): M54.9 - Dorsalgia, unspecified Plan: As?above (6) Screening for osteoporosis: Code(s): Z13.820 - Encounter for screening for osteoporosis Plan: Now?tolerating?alendronate.??Due?for?bone?density?testing?next?year. (7) Breast cancer screening by mammogram: Code(s): Z12.31 - Encounter for screening mammogram for malignant neoplasm of breast Plan: Patient?had?a?mammogram?in?November?2022.??I?do?not?have?the?report?and?I?have?reque sted?this. Patient?notes?that?it?was?normal. Medications: Changed From tramadol 25 mg (1/2 x 50 mg) PO DAILY 14 days PRN 7 tabs 0RF pain M06.9 - Rheumatoid arthritis, unspecified, M54.9 - Dorsalgia, unspecified To tramadol 05. to 1 tab orally daily PRN; MassPat verified. Partial refill upon request. #15 tabs per 30 days. 15 tabs 0RF pain 30 days M06.9 - Rheumatoid arthritis, unspecified, M54.9 - Dorsalgia, unspecified Coding Level of Care Code Est Pt Level 3 (66080) Est Pt Prev Care >65y(57477) Diagnoses Adult general medical exam Z00.00 Hyperlipidemia E78.5 Chronic pain syndrome G89.4 Screening for colon cancer Z12.11 Back pain M54.9 Screening for osteoporosis Z13.820 Breast cancer screening by mammogram Z12.31
== END 2023-04-12 12:27 | disposition home or self-care (01) ==
PROVIDERS: PCP Family Medicine; Visit Provider Family Medicine
DX: Z00.00 Encounter for general adult medical examination without abnormal findings (principal); E78.5 Hyperlipidemia, unspecified; G89.4 Chronic pain syndrome; Z12.11 Encounter for screening for malignant neoplasm of colon; M54.9 Dorsalgia, unspecified; Z13.820 Encounter for screening for osteoporosis; Z12.31 Encounter for screening mammogram for malignant neoplasm of breast
CPT/HCPCS: 99397

== ENCOUNTER 2023-05-16 10:33 | Outpatient (AMB) | payer MEDICARE, SELFPAY ==
[2023-05-16 10:37] VITALS: BP 132/72; PULSE 104; O2SAT 98; BMI 28.2
--- NOTE | 2023-05-16 10:37 | A.OFFPC_ITS ---
Vital Signs 05/16/23 10:37 Height 5 ft 2 in Weight 154 lb BMI 28.2 BP 132/72 Blood Pressure Location Lt brachial Position Sitting Pulse 104 H Pulse Source Pulse Oximeter Pulse Oximetry (%) 98 Oxygen Delivery Method Room Air Intake Visit Reasons: f/u chronic pain syndrome Intake Note: Patient is here for follow up on chronic pain syndrome. Allergies No Known Allergies Allergy (Verified 05/16/23 10:38) Tobacco use date assessed: 04/12/23 Fall risk assessment: No Falls in past year Last assessed Fall Risk: 05/16/23 HPI f/u chronic pain syndrome HPI Details 67 y/o female presents to /u [facility] in [place]. She is followed by rheumatology and pain management. Had signed a pain contract last office visit 04/12/23 and does fairly well with tramadol. She reports she has been taking tramadol for the pain. She has an appt. with rheumatology next month. She reports they had planned to trial Enbrel but had been having difficulties with insurance copays for this. HPI Comments History of Present Illness Details Documentation assistance for Ha Griggs MD, was provided by Abelardo Griffin, Band [employer] on 05/16/2023 11:00 AM EST. I, Dr. Griggs, have read, observed, and verified documentation. [facility] Medical History Osteoporosis History of kidney stones History of shingles Diverticulitis Surgical History H/O hand surgery History of hysterectomy History of tubal ligation History of hernia surgery History of carpal tunnel surgery H/O arthroscopic knee surgery Family History Family/Other Family history of autoimmune disorder Housing: House Patient Tobacco Use Status: Former Tobacco user e-Cigarette/Vaping Use: Never Used Second Hand Smoke Exposure: No service: No Current occupational status: retired Current occupational exposures/hazards: No Cognitive needs: No Hearing needs: No Vision needs: No Questionnaire Thrive Questionnaire Date Thrive assessed: 07/25/22 MILENA-7 AMB Questionnaire MILENA-7 Date MILENA - 7 assessed: 07/25/22 Source: Developed by Drs. Elmo Barahona, Tory Anderson, Derick Sahni and colleagues, with an educational ramirez from [employer]. Review of Systems Const Denies chills, Denies fatigue, Denies fever(s), Denies headache(s) and Denies weakness ENT Denies dizziness and Denies headache(s) Card Denies chest pain, Denies lightheadedness, Denies dyspnea and Denies other (Palpitations) Resp Denies cough, Denies dyspnea, Denies wheezing and Denies other ( shortness of breath) Musc Denies numbness and Denies tingling Neuro Denies dizziness, Denies headache(s), Denies numbness, Denies tingling, Denies paresthesias and Denies weakness Psych Denies anxiety and Denies depression Endo Denies fatigue Aller/Immun Denies wheezing Physical exam (Primary Care) Vital Signs: Last Vital Signs Pulse 104 H 05/16/23 10:37 BP 132/72 05/16/23 10:37 Pulse Ox 98 05/16/23 10:37 Oxygen Delivery Method Room Air 05/16/23 10:37 BMI result Body Mass Index 28.2 Tobacco/Smoking Status: Tobacco use Status Tobacco use date assessed 04/12/23 05/16/23 10:39 Patient Tobacco Use Status Former Tobacco user 05/16/23 10:39 e-Cigarette/Vaping Use Never Used 05/16/23 10:39 Thrive Assessment: Date of Thrive Assessment Date Thrive assessed 07/25/22 05/16/23 10:39 Const General: no acute distress and well developed Nutritional Appearance: well nourished Orientation/consciousness: patient oriented x3 HENMT Head: Yes normocephalic and Yes atraumatic Eyes General: appearance normal, both eyes and all related structures Pupils: Equal, round and reactive pupils present EOM: EOMs intact bilaterally Resp Effort & Inspection: normal respiratory effort Auscultation: clear to auscultation bilaterally Cardio Rate: regular rate and tachycardic Rhythm: regular rhythm Heart sounds: S1 normal heart sound present, S2 normal heart sound present, no gallops, no murmurs and no rubs Neuro General: patient oriented x3 and gait normal Cranial nerves: Yes Equal, round and reactive pupils present Psych Affect: normal affect Assessment and Plan Assessment & Plan (1) Chronic pain syndrome: Code(s): G89.4 - Chronic pain syndrome Plan: Multifactorial?chronic?pain?from?rheumatoid?arthritis,?osteoarthritis?and?fibrom yalgia. Currently?taking?tramadol?and?nabumetone?though?she?does?not?feel? them?nabumetone?is?helping?much.??She?says?that?she?has?taken?leave?and?had?bett er?results?with?this. Continue?tramadol?and?trial?a?leave?b.i.d. She?is?awaiting DMARD therapy?through?rheumatology?but ?has?not?received?medication?yet. Follow-up?with?rheumatology?as?recommended Significant?bilateral?hand?pain?and?deformity?secondary?to?arthritis. Referred?to?hand?surgery (2) Back pain: Code(s): M54.9 - Dorsalgia, unspecified Plan: As?above (3) Hand pain: Code(s): M79.643 - Pain in unspecified hand Plan: As?above (4) Rheumatoid arthritis: Comment: seroneg dx 1977 HCQ for some time in the incomplete records Code(s): M06.9 - Rheumatoid arthritis, unspecified Qualifiers: Rheumatoid arthritis location: multiple sites Rheumatoid factor presence: without rheumatoid factor Qualified Code(s): M06.09 - Rheumatoid arthritis without rheumatoid factor, multiple sites Plan: As above Orders: Referrals Hand Surgery Referral M79.641 - Pain in right hand, M79.642 - Pain in left hand Medications: New naproxen sodium (Aleve) 440 mg (2 x 220 mg) PO BID PRN 120 tabs 1RF pain 30 days Refilled tramadol 05. to 1 tab orally daily PRN; [facility]Pat verified. Partial refill upon request. #15 tabs per 30 days. 15 tabs 0RF pain 30 days M06.9 - Rheumatoid arthritis, unspecified, M54.9 - Dorsalgia, unspecified Coding Level of Care Code Est Pt Level 4 (44376) Diagnoses Chronic pain syndrome G89.4 Back pain M54.9 Hand pain M79.643 Rheumatoid arthritis of multiple sites with negative rheumatoid factor M06.09 Rheumatoid arthritis location: multiple sites Rheumatoid factor presence: without rheumatoid factor
== END 2023-05-16 11:11 | disposition home or self-care (01) ==
PROVIDERS: PCP Family Medicine; Visit Provider Family Medicine
DX: G89.4 Chronic pain syndrome (principal); M54.9 Dorsalgia, unspecified; M79.643 Pain in unspecified hand; M06.09 Rheumatoid arthritis without rheumatoid factor, multiple sites
CPT/HCPCS: 99214

== ENCOUNTER → 2023-06-21 11:42 | Outpatient (BNVA) | payer MEDICARE, SELFPAY | PROVIDERS: PCP Family Medicine; Visit Provider Student in an Organized Health Care Education/Training Program ==

== ENCOUNTER 2023-07-06 11:30 | Outpatient (REF) | payer MEDICARE, SELFPAY ==
[2023-07-06 14:24] LABS: MANUAL DIFF FLAG NO
[2023-07-06 14:32] LABS: Basophils Percent Auto 0.4 % (0-2); Hemoglobin 14.6 g/dl (12.0-16.0); Imm Gran Abs Auto 0.01 X10*3/uL (0.00-0.03); Imm Gran Pct Auto 0.2 % (0.0-0.4); Lymphocytes Absolute Auto 1.2 X10*3/uL (1.2-4.9); Lymphocytes Percent Auto 27.1 % (20-40); Mean Corpuscular HGB Conc 34.8 g/dl (31.0-35.0); Mean Corpuscular Hemoglobin 32.2 pg (27.0-33.0); Mean Corpuscular Volume 92.7 fL (80.0-98.0); Mean Platelet Volume 9.1 fL (9.4-12.3); Monocytes Absolute Auto 0.7 X10*3/uL (0.1-1.2); Monocytes Percent Auto 16.2 % (2-11); Neutrophils Absolute Auto 2.5 x10*3/uL (2.0-8.3); Neutrophils Percent Auto 56.1 % (45-73); Platelet Count 201 X10*3/uL (160-400); Red Blood Count 4.53 X10*6/uL (4.20-5.50); Red Cell Distribution Width 13.2 % (11.0-16.0); White Blood Count 4.5 X10*3/uL (4.8-10.8)
[2023-07-06 15:09] LABS: Alanine Aminotransferase 39 U/L (0-31); Albumin Level 4.2 g/dL (3.5-5.0); Alkaline Phosphatase 88 U/L (39-117); Anion Gap 10 (12-20); Aspartate Amino Transferase 36 U/L (5-31); Bilirubin Total 0.8 mg/dL (0.0-1.0); Blood Urea Nitrogen 19 mg/dL (9-16); C Reactive Protein 0.17 mg/dL (< or = 0.50); Calcium 9.4 mg/dL (8.4-10.2); Carbon Dioxide 25 mmol/L (22-29); Chloride 110 mmol/L (96-108); Cholesterol 167 mg/dL (<200); Estimated Glomerular Filt Rate > 60; Glucose Fasting 142 mg/dL (60-99); Glucose Random 141 mg/dL (60-115); HDL Cholesterol 36 mg/dL (>40); LDL Cholesterol Calculated 102 mg/dL (<100); Sodium 141 mmol/L (135-145); Triglycerides 148 mg/dL (<150)
[2023-07-06 15:12] LABS: Rheumatoid Factor < 13.0 IU/mL (<15.0)
[2023-07-06 15:13] LABS: Erythrocyte Sedimentation Rate 10 MM/HR (0-20)
[2023-07-07 17:03] LABS: Complement C3 139 mg/dL (83-193)
[2023-07-07 20:34] LABS: Anti DNA DS Antibody <1 IU/mL; Antibody to SS-A Antigen <1.0 NEG AI (<1.0 NEG); Antibody to SS-B Antigen <1.0 NEG AI (<1.0 NEG); SM/Ribonucleoprotein Ab <1.0 NEG AI (<1.0 NEG); Smith Protein <1.0 NEG AI (<1.0 NEG)
[2023-07-07 21:44] LABS: Cyclic Citrullinated Peptide <16 UNITS
== END 2023-07-06 11:31 | disposition home or self-care (01) ==
LOC: HO.WFDLDS 11:30
PROVIDERS: Referring Provider Family Medicine; Visit Provider Student in an Organized Health Care Education/Training Program
DX: Z00.00 Encounter for general adult medical examination without abnormal findings (principal); M06.9 Rheumatoid arthritis, unspecified; E78.6 Lipoprotein deficiency
CPT/HCPCS: 36415; 80053; 80061; 85025; 85652; 86140; 86160; 86200; 86225; 86235; 86431

== ENCOUNTER 2023-07-12 11:32 | Outpatient (AMB) | payer MEDICARE, SELFPAY ==
[2023-07-12 11:48] VITALS: BP 140/80; PULSE 101; O2SAT 97; BMI 28.0
--- NOTE | 2023-07-12 11:48 | MHC.PC.OV ---
Vital Signs 07/12/23 11:48 Height 5 ft 2 in Weight 153 lb 2 oz BMI 28.0 BP 140/80 H Blood Pressure Location Lt brachial Position Sitting Pulse 101 H Pulse Source Pulse Oximeter Pulse Oximetry (%) 97 Oxygen Delivery Method Room Air Intake Visit Reasons: Follow-up?elevated?liver?enzymes,?lipids Intake Note: Patient is here to follow up on liver enzymes and lipids. Allergies No Known Allergies Allergy (Verified 07/12/23 11:49) Tobacco use date assessed: 04/12/23 Dental Screening Dental Screen Date: 07/12/23 Did you have a dental visit in the last 12 months?: Yes Did you have a dental problem in the last 6 months where you did not have access to dental care?: No Was dental information given to patient?: Patient has dentist HPI Follow-up?elevated?liver?enzymes,?lipids HPI Details 67 y/o female presents to f/u labs. Labs were drawn 07/06/23. Reviewed labs with pt. Elevated fasting glucose of 142. A1c today 07/12/23 is 5.9%. Liver enzymes elevated - AST 36, ALT 39. Triglycerides 148. TC 167. LDL 102. HDL low at 36. Blood pressure today 140/80, 101p. She is on metoprolol 12.5mg PFSH Medical History Osteoporosis History of kidney stones History of shingles Diverticulitis Surgical History H/O hand surgery History of hysterectomy History of tubal ligation History of hernia surgery History of carpal tunnel surgery H/O arthroscopic knee surgery Family History Family/Other Family history of autoimmune disorder Social History Housing: House Patient Tobacco Use Status: Former Tobacco user e-Cigarette/Vaping Use: Never Used Second Hand Smoke Exposure: No service: No Current occupational status: retired Current occupational exposures/hazards: No Cognitive needs: No Hearing needs: No Vision needs: No Questionnaire PHQ-9 Over the last 2 weeks, how often have you been bothered by any of the following problems? 1. Little interest or pleasure in doing things: not at all 2. Feeling down, depressed, or hopeless: not at all 3. Trouble falling or staying asleep, or sleeping too much: not at all 4. Feeling tired or having little energy: not at all 5. Poor appetite or overeating: not at all 6. Feeling bad about yourself - or that you are a failure or have let yourself or your family down: not at all 7. Trouble concentrating on things, such as reading the newspaper or watching television: not at all 8. Moving or speaking so slowly that other people could have noticed. Or the opposite - being so fidgety or restless that you have been moving around a lot more than usual: not at all 9. Thoughts that you would be better off or of hurting yourself in some way: not at all Total score: 0 Source: Developed by Drs. Elmo Barahona, Tory Anderson, Derick Sahni and colleagues, with an educational ramirez from [employer]. Thrive Questionnaire Date Thrive assessed: 07/12/23 I am a: Patient What is your living situation today?: I have a steady place to live Within the past 12 months, did the food you bought not last and you didn't have the money to get more?: Never true Within the past 12 months, did you worry whether your food would run out before you got money to buy more?: Never true Do you have trouble paying for medicines?: No Do you have trouble getting transportation to medical appointments?: No Do you have trouble paying your heating and electricity bill?: No Do you have trouble taking care of your child, family member or friend?: No Do you have trouble with day-to-day activities such as bathing, preparing meals, shopping, managing finances, etc.?: No Are you currently unemployed and looking for a job?: No Are you interested in more education?: No THRIVE Score: 0 AUDIT C Alcohol Use Questionnaire (AUDIT-C) 1. How often do you have a drink containing alcohol?: Never 3. How often do you have six or more drinks on one occasion?: Never Total Score: 0 MILENA-7 AMB Questionnaire MILENA-7 Date MILENA - 7 assessed: 07/12/23 Feeling nervous, anxious, or on edge: 0 = Not at all Not being able to stop or control worryin = Not at all Worrying too much about different things: 0 = Not at all Trouble relaxin = Not at all Being so restless that it is hard to sit still: 0 = Not at all Becoming easily annoyed or irritable: 0 = Not at all Feeling afraid as if something awful might happen: 0 = Not at all Total MILENA-7 score (0-4 normal; 5-9 mild; 10-14 moderate; 15-21 severe): 0 Source: Developed by Drs. Elmo Barahona, Tory Anderson, Derick Sahni and colleagues, with an educational ramirez from [employer]. Review of Systems Const Denies chills, Denies fatigue, Denies fever(s), Denies headache(s) and Denies weakness ENT Denies dizziness and Denies headache(s) Card Denies dyspnea Resp Denies cough, Denies dyspnea, Denies wheezing and Denies other (shortness of breath) Musc Denies numbness and Denies tingling Neuro Denies dizziness, Denies headache(s), Denies numbness, Denies tingling and Denies weakness Psych Denies anxiety and Denies depression Endo Denies fatigue Aller/Immun Denies wheezing Physical exam (Primary Care) Vital Signs: Last Vital Signs Pulse 101 H 07/12/23 11:48 BP 140/80 H 07/12/23 11:48 Pulse Ox 97 07/12/23 11:48 Oxygen Delivery Method Room Air 07/12/23 11:48 BMI result Body Mass Index 28.0 Tobacco/Smoking Status: Tobacco use Status Tobacco use date assessed 04/12/23 07/12/23 11:57 Patient Tobacco Use Status Former Tobacco user 07/12/23 11:57 e-Cigarette/Vaping Use Never Used 07/12/23 11:57 PHQ-9: PHQ-9 Score PHQ-9: Total score 0 07/12/23 12:00 Thrive Assessment: Date of Thrive Assessment Date Thrive assessed 07/12/23 07/12/23 11:57 Const General: well developed; No acute distress Nutritional Appearance: well nourished Orientation/consciousness: patient oriented x3 HENMT Head: Yes normocephalic and Yes atraumatic Eyes General: appearance normal, both eyes and all related structures Pupils: Equal, round and reactive pupils present EOM: EOMs intact bilaterally Resp Effort & Inspection: normal respiratory effort Neuro General: patient oriented x3 and gait normal Cranial nerves: Yes Equal, round and reactive pupils present Psych Affect: normal affect Results AMB Hemoglobin A1c AMB Hemoglobin A1c 5.9 % Last Edit by Olivia Boyd CMA on 07/12/23 12:17 Results Reviewed Results Reviewed: Laboratory Last Values Hgb A1c (Clinic) 5.9 % (4.0-6.0) 07/12/23 12:16 Assessment and Plan Assessment & Plan (1) Hyperlipidemia: Code(s): E78.5 - Hyperlipidemia, unspecified Plan: LDL?cholesterol?is?controlled?on?atorvastatin Continue?current?medication HDL?is?low?and?I?encouraged?exercise?as?tolerated (2) Essential hypertension: Code(s): I10 - Essential (primary) hypertension Plan: Blood?pressure?mildly?above?goal?less?than?140/90 No?changes?to?medication?regimen?today. (3) Elevated liver enzymes: Code(s): R74.8 - Abnormal levels of other serum enzymes Plan: Ongoing?elevation?liver?enzymes Check?ultrasound (4) Pre-diabetes: Code(s): R73.03 - Prediabetes Plan: A1c?5.9%;?pre?diabetes Encouraged?a?diet?lower?in?sugars?and?starches Orders: Orders AMB Hemoglobin A1c Today Z13.9 - Encounter for screening, unspecified US abdomen adamson w elastography Today R74.8 - Abnormal levels of other serum enzymes Coding Level of Care Code Est Pt Level 4 (37821) Diagnoses Hyperlipidemia E78.5 Essential hypertension I10 Elevated liver enzymes R74.8 Pre-diabetes R73.03
== END 2023-07-12 12:44 | disposition home or self-care (01) ==
PROVIDERS: PCP Family Medicine; Visit Provider Family Medicine
DX: E78.5 Hyperlipidemia, unspecified (principal); I10 Essential (primary) hypertension; R74.8 Abnormal levels of other serum enzymes; R73.03 Prediabetes
CPT/HCPCS: 83036; 99214

== ENCOUNTER 2023-08-07 09:12 | Outpatient (REF) | payer MEDICARE, SELFPAY | END 2023-08-07 09:13 | disposition home or self-care (01) | LOC: HO.US 09:12 | PROVIDERS: PCP Family Medicine; Visit Provider Family Medicine | DX: Z13.89 Encounter for screening for other disorder (principal) ==

== ENCOUNTER 2023-08-21 11:43 | Outpatient (AMB) | payer MEDICARE, SELFPAY ==
--- NOTE | 2023-08-21 11:47 | A.OFFVIS_ITS ---
Intake Vital Signs 08/21/23 11:50 Height 5 ft 2 in Weight 150 lb 12.739 oz BMI 27.6 BP 138/82 Blood Pressure Location Lt brachial Position Sitting Pulse 96 Pulse Source Pulse Oximeter Pulse Oximetry (%) 98 Oxygen Delivery Method Room Air Intake Visit Reasons: 3 mnts f/u for RA Intake Note: Pt last seen 03/24/23 presents today for follow up and test results. Has been doing Enbrel for the last 2 months. Head Scorer Required: No Accompanied by: Self / Same As Patient Allergies No Known Allergies Allergy (Verified 08/21/23 11:52) Medication List - Last Reconciled 08/21/23 by Octavio Padilla MD alendronate 70 mg PO QWEEK atorvastatin 80 mg PO DAILY 90 days xniuutpbfl-vinxjeqiedkxf-bufo 50-325-40 mg 1 - 2 tabs PO DAILY PRN 30 days diclofenac sodium 1% 4 grams topical QID 30 days Enbrel SureClick (etanercept) 50 mg subcut QWEEK NS ferrous sulfate (FeroSul) 325 mg PO DAILY gabapentin 100 mg PO BEDTIME PRN irbesartan 150 mg PO QAM 90 days metoprolol succinate ER 12.5 mg (1/2 x 25 mg) PO DAILY 90 days multivitamin 1 tab PO DAILY naproxen sodium (Aleve) 440 mg (2 x 220 mg) PO BID PRN 30 days tramadol 05. to 1 tab orally daily PRN; [employer] verified. Partial refill upon request. #15 tabs per 30 days. 30 days zolpidem 5 - 10 mg (0.5 - 1 x 10 mg) PO BEDTIME PRN 30 days HPI HPI Comments History of Present Illness Details 67-year-old female with longstanding def orming seronegative RA returns for follow-up. Patient just started Enbrel 2 months ago. She was able to get it through the patient assistance program. She can not think any side effects related to Enbrel. She states that she has doing a little bit better overall. She can not tell whether it is related to Enbrel or to the weather warming up. She has been having pain on the inside of her hip and the outside of her hip bilaterally. She has not noticed any recent swelling of her fingers or hands recently. She continues to have pain in the 2nd and 3rd toes bilaterally. Has been having triggering of her left ring finger recently and has an appointment with hand surgeon soon. She was evaluated by pain management and injections were offered but since patient does not have anyone to take her to and from her appointments. She did not proceed with them. Initial history: This is a 67-year-old female who presents for evaluation of multiple joint pain. Patient stated that since 1976 she was diagnosed with rheumatoid arthritis after fluid was drained from her wrist. She has been following up with Rheumatology for many years. Patient is unaware whether she was ever on DMARDs. She cannot remember. Most recent he was evaluated by Dr. Smallwood and was told that she has burned out rheumatoid arthritis and her symptoms are due to osteoarthritis. Patient has had left thumb surgery for osteoarthritis. She states that her left foot toes are turning similar to the right foot, this has been ongoing for the last 6 months. She is having low back pain radiating to her right thigh as well as right groin pain. Patient is taking nabumetone currently. She was intermittently taking 25 mg of tramadol which provides some relief. she does not believe she was evaluated by Pain Management before. She broke her left wrist in 2017 which was treated non operatively. She was then started on alendronate which she took for about 6 months then stopped it due to GI upset. [facility] Medical History Osteoporosis History of kidney stones History of shingles Diverticulitis Surgical History H/O hand surgery History of hysterectomy History of tubal ligation History of hernia surgery History of carpal tunnel surgery H/O arthroscopic knee surgery Family History Family/Other Family history of autoimmune disorder Social History Housing: House Patient Tobacco Use Status: Former Tobacco user e-Cigarette/Vaping Use: Never Used Second Hand Smoke Exposure: No service: No Current occupational status: retired Current occupational exposures/hazards: No Cognitive needs: No Hearing needs: No Vision needs: No Review of Systems Musc Reports deformity, Reports arthralgias and Denies joint swelling Physical Exam Vital Signs: Last Vital Signs Pulse 96 08/21/23 11:50 BP 138/82 08/21/23 11:50 Pulse Ox 98 08/21/23 11:50 Oxygen Delivery Method Room Air 08/21/23 11:50 BMI result Body Mass Index 27.6 Const General: cooperative, healthy appearing and comfortable Nutritional Appearance: overweight Orientation/consciousness: patient oriented x3 Limitations: no limitations HEENT Head: Yes normocephalic and Yes atraumatic Mouth: moist mucous membranes Resp Effort & Inspection: normal respiratory effort and able to speak in complete sentences Auscultation: clear to auscultation bilaterally Cardio Rate: regular rate Skin General skin exam: no rashes or lesions noted Neuro General: patient oriented x3 Extrem Other: Soft tissue swelling of left wrist, chronic, nontender to palpation. No wrist pain with flexion and extension bilaterally Right 5th MCP tenderness Synovial thickening of her MCPs bilaterally., mild subluxation of PIPs, few [place] neck deformities of both hands Multiple left hand trigger fingers Normal range of motion of both elbows and shoulders without pain Bilateral groin pain with hip flexion, adduction and external rotation. No ankle swelling , warmth or tenderness bilaterally Deformities of both toes with bunions, bunionette and fibular deviation bilaterally. Bilateral 2nd and 3rd MTP tenderness Results Reviewed Results Reviewed: Diagnostic workup from 1976? Joint fluid cell count 40,000 TONY positive 1-32 homogeneous + peripheral RA screen negative Per Dr. Elmo Sepulveda in 1976: History of additive polyarthralgias including upper and lower extremities, stiff hands with associated painful grasp, arthrocentesis of the wrist yielded synovial fluid with elevated white cells, she had multiple flexor tenosynovitis on exam, mild symmetrical synovitis of the wrists, bilateral carpal tunnel syndrome 1992? Patient has been maintained on low-dose steroids taper down to 2.5 mg every 3 days TONY 1-160 speckled Macie test negative On hydroxychloroquine 2 tabs daily Assessment & Plan Assessment & Plan (1) Rheumatoid arthritis: Comment: seroneg dx 1976 HCQ for some time in the 1990s incomplete records [facility] 06/2023 Code(s): M06.9 - Rheumatoid arthritis, unspecified Qualifiers: Rheumatoid arthritis location: multiple sites Rheumatoid factor presence: without rheumatoid factor Qualified Code(s): M06.09 - Rheumatoid art hritis without rheumatoid factor, multiple sites Plan: This is a 67-year-old female with seronegative RA who returns for follow-up. On Enbrel weekly. Doing better overall. Less swollen and tender joints Continue with Enbrel 50 mg weekly Labs before next visit in 5 months (2) Osteoporosis: Code(s): M81.0 - Age-related osteoporosis without current pathological fracture Qualifiers: Osteoporosis type: age-related Presence of current pathological fracture: without current pathological fracture Qualified Code(s): M81.0 - Age- related osteoporosis without current pathological fracture Plan: She had a left wrist fracture in 2017. She was on alendronate for 6 months then stopped due to GI upset. Alendronate was represcribed recently but patient isn't taking it regularly. She states that she cannot get a repeat DEXA scan until next year. Will check a DEXA scan next year and re-evaluate her bone density (3) High risk medication use: Code(s): Z79.899 - Other snf (current) drug therapy Plan: Side effects of Enbrel were discussed with the patient in detail including increased risk of infection, demyelinating disease, reactivation of latent TB, possible increased risk of solid and skin tumors. Patient fully aware. Patient has history of basal cell carcinoma that was excised. She gets a yearly skin exam by Dermatology. Advised patient to seek medical care ROULA if patient has an infection and advised patient to stop the medication until the infection is resolved. (4) Trigger finger, left ring finger: Code(s): M65.342 - Trigger finger, left ring finger Plan: Follow-up with hand surgeon Plan I spent 47 minutes reviewing patient's chart, evaluating patient, ordering diagnostic workup, counseling patient and documenting in the chart Orders: Orders XR DEXA axial skeleton Today M81.0 - Age-related osteoporosis without current pathological fracture Complete Blood Count Auto Diff 5 Months M06.9 - Rheumatoid arthritis, unspecified Comprehensive Met. Panel 5 Months M06.9 - Rheumatoid arthritis, unspecified C Reactive Protein 5 Months M06.9 - Rheumatoid arthritis, unspecified Erythrocyte Sedimentation Rate 5 Months M06.9 - Rheumatoid arthritis, unspecified Coding Level of Care Code Est Pt Level 5 (86021) Diagnoses Rheumatoid arthritis of multiple sites with negative rheumatoid factor M06.09 Rheumatoid arthritis location: multiple sites Rheumatoid factor presence: without rheumatoid factor Age-related osteoporosis without current pathological fracture M81.0 Osteoporosis type: age-related Presence of current pathological fracture: without current pathological fracture High risk medication use Z79.899 Trigger finger, left ring finger M65.342
[2023-08-21 11:50] VITALS: BP 138/82; PULSE 96; O2SAT 98; BMI 27.6
== END 2023-08-21 12:20 | disposition home or self-care (01) ==
PROVIDERS: PCP Family Medicine; Visit Provider Student in an Organized Health Care Education/Training Program
DX: M06.09 Rheumatoid arthritis without rheumatoid factor, multiple sites (principal); M81.0 Age-related osteoporosis without current pathological fracture; Z79.899 Other long term (current) drug therapy; M65.342 Trigger finger, left ring finger
CPT/HCPCS: 99215

== ENCOUNTER → 2023-08-21 11:43 | Outpatient (BNVA) | payer MEDICARE, SELFPAY | PROVIDERS: PCP Family Medicine; Visit Provider Student in an Organized Health Care Education/Training Program | DX: M06.09 Rheumatoid arthritis without rheumatoid factor, multiple sites (principal); M81.0 Age-related osteoporosis without current pathological fracture; M65.342 Trigger finger, left ring finger; Z79.899 Other long term (current) drug therapy | CPT/HCPCS: 99212 ==

== ENCOUNTER 2023-08-22 13:56 | Outpatient (REF) | payer MEDICARE, SELFPAY ==
--- NOTE | ~2023-08-22 | XR_ITS ---
EXAMINATION: XR HAND, LEFT CLINICAL INFORMATION: Pain; rheumatoid arthritis. COMPARISON: Radiographs dated 02/23/2023. TECHNIQUE: PA, lateral, and oblique views of the left hand. FINDINGS: There is bony demineralization. There is mild arthritic change at the third through fifth distal interphalangeal joints. There are mild swan-neck deformities of the second through fifth fingers. Again, there is marked arthritic change of the first carpometacarpal and triscaphe joints. There is again dorsal subluxation of the distal carpal row. There is narrowing of the radiocarpal joint. An ununited ulnar styloid fracture is seen. There is a mild ulnar positive variance. No acute fracture or dislocation is seen. A small well-corticated cyst is seen of the head of the fourth proximal phalanx, possibly a brown tumor. There is generalized soft tissue swelling of the fingers, in particular proximally. There is soft tissue swelling of the wrist. No soft tissue gas or foreign body is seen. XR/XR hand LT min 3V IMPRESSION: There are stable degenerative arthritic changes involving the triscaphe joint, the first carpometacarpal joint, the intercarpal joints and of the fingers. Again, there is dorsal subluxation of the distal carpal row.
== END 2023-08-22 13:57 | disposition home or self-care (01) ==
LOC: HO.HOSX 13:56
PROVIDERS: PCP Family Medicine; Visit Provider Orthopaedic Surgery
DX: M66.242 Spontaneous rupture of extensor tendons, left hand (principal); M20.032 Swan-neck deformity of left finger(s); M79.641 Pain in right hand
CPT/HCPCS: 73130; 99202

== ENCOUNTER 2023-08-22 13:56 | Outpatient (AMB) | payer MEDICARE, SELFPAY ==
[2023-08-22 14:51] VITALS: BMI 27.4
--- NOTE | 2023-08-22 14:51 | MHC.OFFVIS ---
Intake Vital Signs 08/22/23 14:51 Height 5 ft 2 in Weight 150 lb BMI 27.4 Intake Visit Reasons: [employer]-B/L hand pain Intake Note: Samantha 67 yr old right hand dominant female presents today for bilateral hand pain. States her left is worse. States her ring and pinky finger are locking in place. Has stiffness and difficulty making a fist. States it painful at times. Hx of left hand distal radius fx in 2016. Hx of bilateral CTR approx in 2017, O.A, R.A in hands. Xrays of bilateral hands taken on 02/2023. Allergies No Known Allergies Allergy (Verified 08/22/23 14:56) HPI [employer]-B/L hand pain HPI Details Samantha is a 67 year old right hand dominant woman who presents with complaints of bilateral hand pain, L>R. She complains of pain in her hands & fingers, along with stiffness and difficulty with making a fist. She is unsure if her left ring & small fingers are locking or not. When she makes a fist she has trouble extending her left ring and small fingers. She has a hx of [place]-neck deformity in her left middle, ring, and small fingers, and she used to wear ring splints in the past but she says these dont fit her anymore. She has a hx of a left distal radius fx in 2016, and bilateral carpal tunnel release in 2017. She denies any numbness or tingling and says she is happy with her results following her surgery. She says she has a hx of a left LRTI with trapeziectomy, using the FCR tendon, done in ~2008 at an outside facility. She says she often has pain following this surgery She reports a hx of bilateral hand OA & RA. She has been seen by Rheumatology since 1976, and currently follows with Dr. Padilla. She is on Enbrel, which she began ~2 months ago. 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 Current occupational exposures/hazards: No Cognitive needs: No Hearing needs: No Vision needs: No Review of Systems Const All systems reviewed & are unremarkable except as noted in HPI and below Physical Exam Vital Signs: BMI result Body Mass Index 27.4 Const General: cooperative, healthy appearing and no acute distress Orientation/consciousness: patient oriented x3 HEENT Head: Yes normocephalic and Yes atraumatic Eyes EOM: EOMs intact bilaterally Resp Effort & Inspection: normal respiratory effort and able to speak in complete sentences Cardio Jugular venous distension: no JVD Skin General skin exam: turgor normal Rashes: no rashes Neuro General: patient oriented x3 Extrem Other: Evaluation of Left Upper Extremity: The patient is alert, oriented, and in no acute distress Neuro: Median, Ulnar, Radial nerves motor and sensory intact and sensation is normal to the tips of all digits Vascular: Cap refill brisk ROM: She has hyperextension of the left middle, ring, and small fingers of ~30 degrees at the PIP joints With slow deliberation, she is able to actively bring all of her fingers closed to a fist. When making a fist, She has some subluxation of extensor tendons at the MCP joints to small & ring fingers, and cannot actively extend these fingers She can passively extend these fingers and maintain them extended against resistance She has some shortening & radial deviation at the wrist, not painful Skin: No lacerations or abrasions. General: No Ecchymosis. No Erythema or evidence of infection. Radiographs: 3 views of the left hand were taken and viewed by me today in clinic. They show no fractures or dislocations. She is status post a trapezii ectomy. There is evidence of a prior LRTI and possible proximal row carpectomy, verses some auto lysis of the proximal row, and or deformity with auto arthrodesis of the midcarpal joint. The midcarpal joint is not visible. 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 Left ring finger radial sagittal band rupture, With subluxation of the extensor mechanism 2. Left small finger radial sagittal band rupture, With subluxation of the extensor mechanism 3. Left middle finger [place]-neck deformity 4. Left ring finger [place]-neck deformity 5. Left small finger [place]-neck deformity The swan-neck deformities sound like they are longstanding and she is treated them in the past with silver ring splints.She has an old set of ring splints at home that she will try to wear. She says these may no longer fit but she will do what she can.? She does have active flexion of all fingers to a fist. I discussed operative and non-operative treatment options She would likely benefit from radial sagittal band reconstruction and realignment of the small and ring fingers. However, this will mean that she will need to be in a cast for a period of time followed by a thermoplastic splint until about 6 weeks postop. We could also consider using a slip of FDS tendon to prevent hyper extension at some of these finger PIP joints. She will follow up in 6-8 weeks to see how she is doing. This should be a 30 minute appointment 6. Seronegative RA Currently on Enbrel Follows with Dr. Padilla First dx in ~[address] Padilla's note on 08/21/23 Please note that greater than 50 minutes was spent with this patient going over the history, evaluating the patient and radiographs, formulating possible treatment options, discussing them with the patient, and documenting the visit. Scribed for Susie Moss MD by Maikel Dominique, director global medical affairs, on 08/22/23 at 3:15 PM, EST. 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
== END 2023-08-22 15:36 | disposition home or self-care (01) ==
PROVIDERS: PCP Family Medicine; Visit Provider Orthopaedic Surgery
DX: M66.242 Spontaneous rupture of extensor tendons, left hand (principal); M20.032 Swan-neck deformity of left finger(s)
CPT/HCPCS: 99204; 99214

== ENCOUNTER 2023-09-08 09:50 | Outpatient (REF) | payer MEDICARE, SELFPAY ==
--- NOTE | ~2023-09-08 | US_ITS ---
EXAMINATION: US ABDOMEN LIMITED WITH LIVER ELASTOGRAPHY CLINICAL INFORMATION: Abnormal levels of serum enzymes. COMPARISON: None available. TECHNIQUE: Real-time imaging of the abdominal viscera. Noninvasive ultrasound liver fibrosis assessment is performed using Juan ElastPQ point quantification shear wave elastography (2D-SWE) with a C5-2 MHz transducer. Multiple elastography samples are obtained. FINDINGS: PANCREAS: Normal. The visualized pancreatic head and body are normal in appearance. The remainder of the pancreas is obscured from visualization by the overlying bowel gas. LIVER: Normal. The liver demonstrates normal size, contour and echogenicity. No focal lesion or intrahepatic biliary duct dilatation. The right lobe measures 13.3 cm in length. The left lobe measures 10.3 cm in length. Portal flow is towards the liver (hepatopetal). Shear wave liver elastography median stiffness is 1.71 m/s (reference: normal median stiffness is 1.3 m/s or less). IQR/median stiffness to assess sampling precision is 0.09 (reference: good quality data set is IQR/median stiffness of 0.15 or less). GALLBLADDER: Surgically absent. COMMON BILE DUCT: Normal in caliber measuring 0.6 cm in diameter. RIGHT KIDNEY: Normal. No hydronephrosis. No renal calculi or focal parenchymal lesions. The kidney measures 9.6 cm in maximum dimension. FREE FLUID: None. US/US abdomen adamson w elastography IMPRESSION: 1. Liver elastography: Measurements are suggestive of compensated advanced chronic liver disease but need further test for confirmation. 2. The gallbladder is surgically absent. REFERENCE: Society of Radiologists in Ultrasound Liver Stiffness Thresholds (2020): LIVER STIFFNESS THRESHOLDS: *Liver Stiffness equal or less than 1.3 m/s: High probability of being normal. *Liver Stiffness less than 1.7 m/s: In the absence of other known clinical signs, rules out compensated advanced chronic liver disease. *Liver Stiffness 1.7-2.1 m/s: Suggestive of compensated advanced chronic liver disease but need further test for confirmation. *Liver Stiffness over 2.1 m/s: Rules in compensated advanced chronic liver disease. *Liver Stiffness over 2.4 m/s: Suggestive of clinically significant portal hypertension. QUALITY OF DATA SET: *IQR/Median value equal or less than 0.15 implies a quality data set. *IQR/Median value over 0.15 implies a poor quality data set. SIGNIFICANT CHANGE FROM PRIOR EXAM: Significant change if liver stiffness measurement is 10% or greater from prior exam. OTHER CONSIDERATIONS: The stage of liver fibrosis may be overestimated in the setting of acute hepatitis, liver inflammation, elevated liver function tests, hepatic vascular congestion, obstructive cholestasis, non-fasting state, and infiltrative diseases such as amyloidosis and lymphoma. In some patients with NAFLD, the liver stiffness thresholds for compensated advanced chronic liver disease may be lower. In causes other than viral hepatitis and NAFLD, liver stiffness thresholds are not well established.
--- NOTE | ~2023-09-08 | MM_ITS ---
EXAMINATION: BONE DENSITOMETRY CLINICAL INDICATION: Age-related osteoporosis without current pathological fracture. COMPARISON: This is the patient's baseline examination. TECHNIQUE: Using a RENTISH DXA System (software version: 13.1) manufactured by [employer], dual-energy x-ray absorptiometry was performed of the lumbar spine and left hip. The images are of good technical quality. Summary results are attached. FINDINGS: AP SPINE L1-L4: BMD 1.077 g/cm2, Z-score 0.8, T-score -0.9, normal. LEFT FEMUR, NECK: BMD 0.461 g/cm2, Z-score -2.5, T-score -4.1, osteoporosis. LEFT FEMUR, TOTAL: BMD 0.454 g/cm2, Z-score -3.0, T-score -4.4, osteoporosis. IDENTIFIED RISK FACTORS: History of adult fracture. Rheumatoid arthritis. Osteoporosis. Menopause. Hysterectomy. Bilateral oophorectomy. HISTORY OF FRACTURE: Forearm. MEDICATIONS: Calcium supplement and/or multivitamin. MM/XR DEXA axial skeleton IMPRESSION: 1. DIAGNOSIS: Severe osteoporosis based on the lowest T-score value of -4.4 in the total femur and the prior history of fracture applying World Health Organization criteria. 2. 10-YEAR FRACTURE RISK PREDICTION, FRAX: According to the guidelines, FRAX calculation should only be performed on patients in the osteopenia bone density category.?Therefore, FRAX was not performed on this patient.? 3. Treatment Recommendations: NOF guidelines recommend consideration for treatment in postmenopausal women and men age 50 and older presenting with the following: -A hip or vertebral (clinical or morphometric) fracture. -T-score less than or equal to -2.5 at the femoral neck or spine after appropriate evaluation to exclude secondary causes. -Low bone mass at the hip or spine and a 10-year fracture probability by FRAX of greater than or equal to 3% for hip fracture or greater than or equal to 20% for major osteoporotic fracture based on the [place] adapted WHO algorithm. 4. Other Recommendations: All treatment decisions require clinical judgment and consideration of individual patient factors, including patient preferences, comorbidities, previous drug use, risk factors not captured in the FRAX model (e.g. frailty, falls, vitamin D deficiency, increased bone turnover, interval significant decline in bone density) and possible under or overestimation of fracture risk by FRAX. Additional medical evaluation for secondary cause of low bone mineral density may be appropriate. FUTURE SCAN RECOMMENDATION: People with diagnosed cases of osteoporosis or at high risk for fracture should have regular bone mineral density tests. For patients eligible for Medicare, routine testing is allowed once every 2 years. The testing frequency can be increased to one year for patients who have rapidly progressing disease, those who are receiving or discontinuing medical therapy to restore bone mass, or have additional risk factors.
== END 2023-09-08 09:51 | disposition home or self-care (01) ==
LOC: HO.US 09:50
PROVIDERS: PCP Family Medicine; Visit Provider Family Medicine
DX: Z13.820 Encounter for screening for osteoporosis (principal); M81.0 Age-related osteoporosis without current pathological fracture; R74.8 Abnormal levels of other serum enzymes; M06.9 Rheumatoid arthritis, unspecified; Z78.0 Asymptomatic menopausal state; Z90.710 Acquired absence of both cervix and uterus; Z90.722 Acquired absence of ovaries, bilateral; Z90.49 Acquired absence of other specified parts of digestive tract
CPT/HCPCS: 76705; 76981; 77080

== ENCOUNTER → 2023-09-25 15:46 | Outpatient (AMB) | payer MEDICARE, SELFPAY ==
--- NOTE | 2023-09-25 15:38 | MHC.PC.OV ---
Intake Visit Reasons: f/u liver ultrasound [phone] Allergies No Known Allergies Allergy (Verified 09/25/23 15:40) Medication List - Last Reconciled 09/25/23 by Ha Griggs MD atorvastatin 80 mg PO DAILY 90 days [id number] 50-325-40 mg 1 - 2 tabs PO DAILY PRN 30 days cholecalciferol (vitamin D3) 25 mcg PO DAILY diclofenac sodium 1% 4 grams topical QID 30 days Enbrel SureClick (etanercept) 50 mg subcut QWEEK NS ferrous sulfate (FeroSul) 325 mg PO DAILY gabapentin 100 mg PO BEDTIME PRN irbesartan 150 mg PO QAM 90 days metoprolol succinate ER 12.5 mg (1/2 x 25 mg) PO DAILY 90 days multivitamin 1 tab PO DAILY naproxen sodium (Aleve) 440 mg (2 x 220 mg) PO BID PRN 30 days Prolia (denosumab) 60 mg subcut [id number] NS tramadol 05. to 1 tab orally daily PRN; MassPat verified. Partial refill upon request. #15 tabs per 30 days. 30 days zolpidem 5 - 10 mg (0.5 - 1 x 10 mg) PO BEDTIME PRN 30 days Tobacco use date assessed: 09/25/23 Fall risk assessment: No Falls in past year Last assessed Fall Risk: 09/25/23 Dental Screening Dental Screen Date: 07/12/23 Did you have a dental visit in the last 12 months?: Yes Did you have a dental problem in the last 6 months where you did not have access to dental care?: No Was dental information given to patient?: Patient has dentist HPI f/u liver ultrasound [phone] HPI Details 67 y/o female presents to f/u liver ultrasound via telemedicine. Recent liver ultrasound showed increased liver stiffness. Had referred to GI. Bone density test 09/08/23 shows severe osteoporosis. HPI Comments History of Present Illness Details Documentation assistance for Ha Griggs MD, was provided by Abelardo Griffin,? Clinical Research Monitor on 09/25/2023 5:21 PM EST. I, Dr. Griggs, have read, observed, and verified documentation. [facility] Medical History Osteoporosis History of kidney stones History of shingles Diverticulitis Surgical History H/O hand surgery History of hysterectomy History of tubal ligation History of hernia surgery History of carpal tunnel surgery H/O arthroscopic knee surgery Family History Family/Other Family history of autoimmune disorder Social History (Updated 08/22/23 @ 14:57 by Rachna Egan [facility]) Housing: House Patient Tobacco Use Status: Former Tobacco user e-Cigarette/Vaping Use: Never Used Second Hand Smoke Exposure: No service: No Current occupational status: retired 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 lEmo Barahona, Tory Anderson, Derick Sahni and colleagues, with an educational ramirez from [employer]. Review of Systems Const Denies chills, Denies fatigue, Denies fever(s), Denies headache(s) and Denies weakness ENT Denies dizziness and Denies headache(s) Card Denies dyspnea Resp Denies cough, Denies dyspnea, Denies wheezing and Denies other (shortness of breath) Musc Denies numbness and Denies tingling Neuro Denies dizziness, Denies headache(s), Denies numbness, Denies tingling and Denies weakness Psych Denies anxiety and Denies depression Endo Denies fatigue Aller/Immun Denies wheezing Physical exam (Primary Care) Tobacco/Smoking Status: Tobacco use Status Tobacco use date assessed 09/25/23 09/25/23 15:41 Patient Tobacco Use Status Former Tobacco user 09/25/23 15:41 e-Cigarette/Vaping Use Never Used 09/25/23 15:41 Thrive Assessment: Date of Thrive Assessment Date Thrive assessed 07/12/23 09/25/23 15:41 Telehealth Telehealth Location of provider rendering services: practice address Location of patient: address on file Patient Identification confirmed using: Name, : Yes Telehealth method: voice only Patient verbally consented to treatment: Yes Patient verbally consented to billing insurance company: Yes Patient informed of any privacy concerns related to visit: Yes Minutes spent on Phone/Video with Pt.: 10 Assessment and Plan Assessment & Plan (1) Elevated liver enzymes: Code(s): R74.8 - Abnormal levels of other serum enzymes Plan: Elevated?liver?enzymes?and?liver?ultrasound?shows?increased?liver?stiffness Referred?to?GI (2) Osteoporosis: Code(s): M81.0 - Age-related osteoporosis without current pathological fracture Qualifiers: Osteoporosis type: age-related Presence of current pathological fracture: without current pathological fracture Qualified Code(s): M81.0 - Age-related osteoporosis without current pathological fracture Plan: Severe?osteoporosis?and?she?is?followed?by?rheumatology Starting?Prolia Follow-up?with?rheumatology?as?recommended Medications: Refilled zolpidem 5 - 10 mg (0.5 - 1 x 10 mg) PO BEDTIME 30 days PRN 30 tabs 0RF sleep tramadol 05. to 1 tab orally daily PRN; MassPat verified. Partial refill upon request. #15 tabs per 30 days. 30 days 15 tabs 0RF pain M06.9 - Rheumatoid arthritis, unspecified, M54.9 - Dorsalgia, unspecified Coding Level of Care Code Tele Est Pt Level 2 (72465) Diagnoses Elevated liver enzymes R74.8 Age-related osteoporosis without current pathological fracture M81.0 Osteoporosis type: age-related Presence of current pathological fracture: without current pathological fracture
== END ==
PROVIDERS: PCP Family Medicine; Visit Provider Family Medicine
DX: R74.8 Abnormal levels of other serum enzymes (principal); M81.0 Age-related osteoporosis without current pathological fracture
CPT/HCPCS: G2012

== ENCOUNTER 2023-11-01 13:34 | Outpatient (AMB) | payer MEDICARE, SELFPAY ==
--- NOTE | 2023-11-01 15:29 | AM.OFFVISNUR ---
Intake Vital Signs 11/01/23 15:30 BP 132/78 Blood Pressure Location Lt brachial Position Sitting Pulse 72 Pulse Source Pulse Oximeter Intake Visit Reasons: Osteoporosis/prolia inj Allergies No Known Allergies Allergy (Verified 11/01/23 15:30) Nursing Note Patient here for first Prolia injection. Vital WNL and denies any allergies at this time. Patient was provided with information regarding the Prolia. I reviewed symptoms of an allergic reaction that requires her to seek care in the ED. Patient agreed to this and has no concerns at this time. She has signed consent to receive the Prolia. I administered Prolia on upper left arm. Patient tolerated injection well. Office Meds Prolia 60 mg/mL subcutaneous syringe Performing Provider: Octavio Padilla MD Performing Location: [facility] Rheumatology Administered by: Eveline Hill RN on 11/01/23 15:39 Dose Route Admin Location Dispensed Lot Number Expiration Date NDC Director Supplier Quality 60 mg subcut left arm 1 mL [id number] 12/16/25 77664-194-16 AMGEN Coding Level of Care Code Procedure Only Assessment & Plan Assessment & Plan Orders: Orders AMB Denosumab Injection Practice Supplied Today M81.0 - Age-related osteoporosis without current pathological fracture Medications: New Prolia (denosumab) 60 mg subcut ONCE 1 mL 0RF NS M81.0 - Age-related osteoporosis without current pathological fracture
[2023-11-01 15:30] VITALS: BP 132/78; PULSE 72
== END 2023-11-01 14:33 | disposition home or self-care (01) ==
LOC: HO.RHE 13:34
PROVIDERS: PCP Family Medicine; Visit Provider Student in an Organized Health Care Education/Training Program
DX: M81.0 Age-related osteoporosis without current pathological fracture (principal)

== ENCOUNTER → 2023-11-01 13:34 | Outpatient (BNVA) | payer MEDICARE, SELFPAY | PROVIDERS: PCP Family Medicine; Visit Provider Student in an Organized Health Care Education/Training Program | DX: M81.0 Age-related osteoporosis without current pathological fracture (principal) | CPT/HCPCS: 96372; J0897 ==

== ENCOUNTER 2023-11-02 14:08 | Outpatient (AMB) | payer MEDICARE, SELFPAY ==
--- NOTE | 2023-11-02 14:12 | MHC.OFFVIS ---
Vital Signs 11/02/23 14:16 Height 5 ft 2 in Weight 147 lb 11.355 oz BMI 27.0 Intake Visit Reasons: Abnormal levels of other serum enzymes Intake Note: Patient presents to in office visit today for elevated liver enzymes. CC: Patient s/p colostomy reversal 4 years ago. She denies having any GI complains today. Java Portal Developer Required: No Accompanied by: Self / Same As Patient Allergies No Known Allergies Allergy (Verified 11/02/23 14:29) HPI HPI Abnormal levels of other serum enzymes: Details: 67-year-old female here for initial evaluation of elevated liver enzymes. She is referred by Ha Griggs of [facility] primary care. PMX Hypertension High cholesterol Pre diabetes Complex regional pain syndrome of the lower limb Sacroiliitis Osteoporosis Generalized osteoarthritis Rheumatoid arthritis Fibromyalgia syndrome Migraines History of diverticulitis Nephrolithiasis [place]-neck deformity High risk medication use Hx of small bowel obstruction * SURGICAL HISTORY Hysterectomy Tubal ligation Rt inguinal hernia repair Carpal tunnel release Arthroscopic knee surgery Left thumb surgery Partial colectomy s/p TICS Hx colostomy with reanastomosis C section x 2 * ALLERGIES: NKDA * WUT LABS: Laboratory Tests 07/06/23 11:40 WBC 4.5 L Hgb 14.6 Hct 42.0 Plt Count 201 Estimated GFR > 60 Total Bilirubin 0.8 AST 36 H ALT 39 H Alkaline Phosphatase 88 C-Reactive Protein 0.17 Laboratory Tests 02/14/23 09:50 Hepatitis A IgM Ab Nonreactive Hep Bs Antigen Negative Hep Bs Antibody NONREACTIVE Hep B Core Total Ab Nonreactive Hepatitis C Ab (EIA) Nonreactive US ABD WITH ELASTOGRAPHY 09/12/23 (F1-F2) FINDINGS: PANCREAS: Normal. The visualized pancreatic head and body are normal in appearance. The remainder of the pancreas is obscured from visualization by the overlying bowel gas. LIVER: Normal. The liver demonstrates normal size, contour and echogenicity. No focal lesion or intrahepatic biliary duct dilatation. The right lobe measures 13.3 cm in length. The left lobe measures 10.3 cm in length. Portal flow is towards the liver (hepatopetal). Shear wave liver elastography median stiffness is 1.71 m/s (reference: normal median stiffness is 1.3 m/s or less). IQR/median stiffness to assess sampling precision is 0.09 (reference: good quality data set is IQR/median stiffness of 0.15 or less). GALLBLADDER: Surgically absent. COMMON BILE DUCT: Normal in caliber measuring 0.6 cm in diameter. RIGHT KIDNEY: Normal. No hydronephrosis. No renal calculi or focal parenchymal lesions. The kidney measures 9.6 cm in maximum dimension. FREE FLUID: None. US/US abdomen adamson w elastography IMPRESSION: 1. Liver elastography: Measurements are suggestive of compensated advanced chronic liver disease but need further test for confirmation. 2. The gallbladder is surgically absent. TODAY'S VISIT She is working at losing weight r/t her knee OA. She does not drink ETOH except very occasionally. She does not know of any FHX Of liver disease. We review all of her current labs and we will continue her workup to see if there is any reversible process besides CHÁVEZ that needs to be addressed keep her liver healthy. She was educated about the likelihood of inherited metabolic liver disease. Return office visit in 6 weeks. 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 Current occupational exposures/hazards: No Cognitive needs: No Hearing needs: No Vision needs: No Review of Systems Const Denies fatigue, Denies fever(s), Denies night sweats, Denies poor appetite and Denies weight loss ENT Reports Normal hearing present, Denies dysphagia, Denies odynophagia, Denies throat swelling and Denies tongue swelling Card Reports no additional complaints Resp Reports no additional complaints GI Details: Denies abdominal pain, Denies melena, Denies bloating, Denies hematochezia, Denies constipation, Denies GI cramping, Denies dysphagia, Denies excessive flatus, Denies early satiety, Denies heartburn, Denies diarrhea, Denies nausea, Denies odynophagia, Denies vomiting and Denies hematemesis Skin/Breast Denies pruritus, Denies lesions, Denies rash and Denies jaundice Neuro Reports Normal hearing present and Denies Abnormal speech present Endo Denies fatigue Aller/Immun Denies throat swelling and Denies tongue swelling Physical Exam Vital Signs: BMI result Body Mass Index 27.0 Const General: cooperative, no acute distress, well developed and well groomed Nutritional Appearance: average body habitus and well nourished Orientation/consciousness: oriented to person, oriented to place and oriented to time Limitations: No language barrier HEENT Head: Yes normocephalic and Yes atraumatic Eyes General: appearance normal, both eyes and all related structures Pupils: Equal, round and reactive pupils present Neck Neck: Yes normal visual inspection and Yes no lymphadenopathy Thyroid: Thyroid normal Resp Effort & Inspection: normal respiratory effort and able to speak in complete sentences Auscultation: clear to auscultation bilaterally Cardio Rate: regular rate Rhythm: regular rhythm Heart sounds: Normal, physiologic split S2 sound present Peripheral pulses: radial pulses present and posterior tibial pulses present GI Inspection: No distended, Yes Abdominal panniculus present and Yes obesity Palpation (GI): Soft to palpation, nontender, no guarding, not rigid and No hepatosplenomegaly present Percussion: Yes normal to percussion Auscultation: normal bowel sounds Rectal Exam - Female: deferred Abdomen image: 1. surgical scars 2. surgical scar 3. old ostomy site 4. surgical scar Skin General skin exam: no rashes or lesions noted, turgor normal, skin not dry, no jaundice, No spider nevi and no striae Rashes: no rashes Nails: normal Neuro General: oriented to person, oriented to place and oriented to time Cranial nerves: Yes Equal, round and reactive pupils present and Yes Normal hearing present Speech: No Abnormal speech present Extrem Other: slight ulnar deviation fo hands, swan neck deformities left hand General: No clubbing, No cyanosis and No edema Psych Appearance: grossly normal and well kempt Mental Status: mental status grossly normal Speech and movement: Normal speech and movement present Affect: normal affect Attitude: cooperative Thought process: Normal thought process present and not confabulating Thought content: Normal thought content present Insight: Fair insight present (Psych) Judgement: Fair judgement present (Psych) Results Reviewed Results Reviewed: Laboratory Tests 07/06/23 11:40 WBC 4.5 L Hgb 14.6 Hct 42.0 Plt Count 201 Estimated GFR > 60 Total Bilirubin 0.8 AST 36 H ALT 39 H Alkaline Phosphatase 88 C-Reactive Protein 0.17 Laboratory Tests 02/14/23 09:50 Hepatitis A IgM Ab Nonreactive Hep Bs Antigen Negative Hep Bs Antibody NONREACTIVE Hep B Core Total Ab Nonreactive Hepatitis C Ab (EIA) Nonreactive US ABD WITH ELASTOGRAPHY 09/12/23 (F1-F2) FINDINGS: PANCREAS: Normal. The visualized pancreatic head and body are normal in appearance. The remainder of the pancreas is obscured from visualization by the overlying bowel gas. LIVER: Normal. The liver demonstrates normal size, contour and echogenicity. No focal lesion or intrahepatic biliary duct dilatation. The right lobe measures 13.3 cm in length. The left lobe measures 10.3 cm in length. Portal flow is towards the liver (hepatopetal). Shear wave liver elastography median stiffness is 1.71 m/s (reference: normal median stiffness is 1.3 m/s or less). IQR/median stiffness to assess sampling precision is 0.09 (reference: good quality data set is IQR/median stiffness of 0.15 or less). GALLBLADDER: Surgically absent. COMMON BILE DUCT: Normal in caliber measuring 0.6 cm in diameter. RIGHT KIDNEY: Normal. No hydronephrosis. No renal calculi or focal parenchymal lesions. The kidney measures 9.6 cm in maximum dimension. FREE FLUID: None. US/US abdomen adamson w elastography IMPRESSION: 1. Liver elastography: Measurements are suggestive of compensated advanced chronic liver disease but need further test for confirmation. 2. The gallbladder is surgically absent. Assessment & Plan Assessment & Plan (1) Transaminitis: Comment: BASELINE LABS 07/06/23 11:40 WBC 4.5 L Hgb 14.6 Hct 42.0 Plt Count 201 Estimated GFR > 60 Total Bilirubin 0.8 AST 36 H ALT 39 H Alkaline Phosphatase 88 C-Reactive Protein 0.17 02/14/23 09:50 Hepatitis A IgM Ab Nonreactive Hep Bs Antigen Negative Hep Bs Antibody NONREACTIVE Hep B Core Total Ab Nonreactive Hepatitis C Ab (EIA) Nonreactive US ABD WITH ELASTOGRAPHY 09/12/23 (F1-F2) CURRENT LABS US ABD WITH ELASTOGRAPHY 09/12/23 (F1-F2) IMPRESSION: 1. Liver elastography: Measurements are suggestive of compensated advanced chronic liver disease but need further test for confirmation. 2. The gallbladder is surgically absent. Code(s): R74.01 - Elevation of levels of liver transaminase levels Category: Medical Plan She is working at losing weight r/t her knee OA. She does not drink ETOH except very occasionally. She does not know of any FHX Of liver disease. We review all of her current labs and we will continue her workup to see if there is any reversible process besides CHÁVEZ that needs to be addressed keep her liver healthy. She was educated about the likelihood of inherited metabolic liver disease. Return office visit in 6 weeks. Orders: Orders Alpha Fetoprotein 11/07/23 R74.01 - Elevation of levels of liver transaminase levels TONY Reflex Titer and Pattern 11/07/23 R74.01 - Elevation of levels of liver transaminase levels Smooth Muscle Antibody 11/07/23 R74.01 - Elevation of levels of liver transaminase levels Mitochondrial Antibody 11/07/23 R74.01 - Elevation of levels of liver transaminase levels Gamma Glutamyl Transpeptidase 11/07/23 R74.01 - Elevation of levels of liver transaminase levels HIV Ab/Ag 11/07/23 R74.01 - Elevation of levels of liver transaminase levels Ferritin 11/07/23 R74.01 - Elevation of levels of liver transaminase levels Coding Level of Care Code New Pt Level 3 (42695) Diagnoses Transaminitis R74.01
[2023-11-02 14:16] VITALS: BMI 27.0
== END 2023-11-02 15:18 | disposition home or self-care (01) ==
PROVIDERS: PCP Family Medicine; Referring Provider Family Medicine; Visit Provider Nurse Practitioner
DX: R74.01 Elevation of levels of liver transaminase levels (principal)
CPT/HCPCS: 99203; 99213

== ENCOUNTER → 2023-11-02 14:08 | Outpatient (BNVA) | payer MEDICARE, SELFPAY | PROVIDERS: PCP Family Medicine; Referring Provider Family Medicine; Visit Provider Nurse Practitioner | DX: R74.01 Elevation of levels of liver transaminase levels (principal) | CPT/HCPCS: 99202 ==

== ENCOUNTER 2023-11-07 12:23 | Outpatient (REF) | payer MEDICARE, SELFPAY ==
[2023-11-07 15:24] LABS: Gamma Glutamyl Transpeptidase 21 U/L (7-33)
[2023-11-07 15:27] LABS: Ferritin 201 ng/mL (10-250)
[2023-11-08 08:06] LABS: HIV AB/AG Nonreactive (Nonreactive); HIV Num 1 0.06 S/CO (0.00-0.99)
[2023-11-08 18:13] LABS: Alpha Fetoprotein 2.6 ng/mL; Mitochondrial Antibodies NEGATIVE (NEGATIVE)
[2023-11-11 12:18] LABS: Smooth Muscle Antibody <20 U (<20)
[2023-11-13 10:39] LABS: Anti Nuclear Antibody Pattern Nuclear, Homogeneous; Anti Nuclear Antibody Screen POSITIVE (NEGATIVE)
== END 2023-11-07 12:24 | disposition home or self-care (01) ==
LOC: HO.WFDLDS 12:23
PROVIDERS: Visit Provider Nurse Practitioner
DX: R74.01 Elevation of levels of liver transaminase levels (principal)
CPT/HCPCS: 36415; 82105; 82728; 82977; 86015; 86038; 86039; 86381; 87389

== ENCOUNTER 2023-12-14 13:16 | Outpatient (AMB) | payer MEDICARE, SELFPAY ==
[2023-12-14 13:28] VITALS: BP 127/88; PULSE 100; BMI 26.9
--- NOTE | 2023-12-14 13:28 | MHC.OFFVIS ---
Vital Signs 12/14/23 13:28 Height 5 ft 2 in Weight 146 lb 13.246 oz BMI 26.9 BP 127/88 Blood Pressure Location Lt brachial Position Sitting Pulse 100 Intake Visit Reasons: 6 weeks follow up Intake Note: Samantha returns to in office 6 weeks follow up of labs. CC: Patient reports doing well and denies having any K 12 Principal Required: No Accompanied by: Self / Same As Patient Allergies No Known Allergies Allergy (Verified 12/14/23 13:36) HPI HPI 6 weeks follow up: Details: Assessment & Plan (1) Transaminitis: Comment: BASELINE LABS 07/06/23 11:40 WBC 4.5 L Hgb 14.6 Hct 42.0 Plt Count 201 Estimated GFR > 60 Total Bilirubin 0.8 AST 36 H ALT 39 H Alkaline Phosphatase 88 C-Reactive Protein 0.17 02/14/23 09:50 Hepatitis A IgM Ab Nonreactive Hep Bs Antigen Negative Hep Bs Antibody NONREACTIVE Hep B Core Total Ab Nonreactive Hepatitis C Ab (EIA) Nonreactive US ABD WITH ELASTOGRAPHY 09/12/23 (F1-F2) CURRENT LABS US ABD WITH ELASTOGRAPHY 09/12/23 (F1-F2) IMPRESSION: 1. Liver elastography: Measurements are suggestive of compensated advanced chronic liver disease but need further test for confirmation. 2. The gallbladder is surgically absent. Code(s): R74.01 - Elevation of levels of liver transaminase levels Category: Medical Plan She is working at losing weight r/t her knee OA. She does not drink ETOH except very occasionally. She does not know of any FHX Of liver disease. We review all of her current labs and we will continue her workup to see if there is any reversible process besides CHÁVEZ that needs to be addressed keep her liver healthy. She was educated about the likelihood of inherited metabolic liver disease. Return office visit in 6 weeks. Orders: Orders Alpha Fetoprotein 11/07/23 R74.01 - Elevation of levels of liver transaminase levels TONY Reflex Titer and Pattern 11/07/23 R74.01 - Elevation of levels of liver transaminase levels Smooth Muscle Antibody 11/07/23 R74.01 - Elevation of levels of liver transaminase levels Mitochondrial Antibody 11/07/23 R74.01 - Elevation of levels of liver transaminase levels Gamma Glutamyl Transpeptidase 11/07/23 R74.01 - Elevation of levels of liver transaminase levels HIV Ab/Ag 11/07/23 R74.01 - Elevation of levels of liver transaminase levels Ferritin 11/07/23 R74.01 - Elevation of levels of liver transaminase levels LABS: Laboratory Tests 11/07/23 12:25 Ferritin 201 GGT 21 Alpha Fetoprotein 2.6 TONY Screen POSITIVE A TONY Titer 1:320 H TONY Pattern Nuclear, Homogeneous A Anti-Mitochondrial Ab NEGATIVE Anti-Smooth Muscle Ab <20 HIV 1&2 Ab/P24 Ag 4thGn Nonreactive TODAY'S VISIT We review all the labs and it appears that this is CHÁVEZ. She is educated about slow steady weight loss, the avoidance of alcohol and control blood sugars as this 3 most important factors in controlling her liver health. She is aware that we will monitor her at six-month intervals. Return office visit in 6 months [facility] Medical History (Updated 12/14/23 @ 14:04 by GORAN Lind) Elevated fasting glucose Knee pain History of shingles Laboratory exam ordered as part of routine general medical examination Breast cancer screening by mammogram Acute left flank pain Elevated liver enzymes Adult general medical exam Screening for colon cancer Immunization counseling Osteoporosis History of kidney stones Diverticulitis Surgical History History of colostomy reversal H/O hand surgery History of hysterectomy History of tubal ligation History of hernia surgery History of carpal tunnel surgery H/O arthroscopic knee surgery Family History Family/Other Family history of autoimmune disorder Social History Housing: House Patient Tobacco Use Status: Former Tobacco user e-Cigarette/Vaping Use: Never Used Second Hand Smoke Exposure: No service: No Current occupational status: retired 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 Current occupational exposures/hazards: No Cognitive needs: No Hearing needs: No Vision needs: No Review of Systems Const Denies fatigue, Denies fever(s), Denies night sweats, Denies poor appetite and Denies weight loss ENT Reports Normal hearing present, Denies dental pain, Denies dysphagia, Denies hearing loss, Denies mouth pain, Denies odynophagia, Denies throat swelling, Denies tongue swelling and Reports other (Dentition adequate) Card Reports no additional complaints Resp Reports no additional complaints GI Details: Denies abdominal pain, Denies melena, Denies bloating, Denies hematochezia, Denies constipation, Denies GI cramping, Denies dysphagia, Denies excessive flatus, Denies early satiety, Denies heartburn, Denies diarrhea, Denies nausea, Denies odynophagia, Denies vomiting and Denies hematemesis Skin/Breast Denies pruritus, Denies lesions, Denies rash and Denies jaundice Neuro Reports Normal hearing present and Denies Abnormal speech present Endo Denies fatigue Aller/Immun Denies throat swelling and Denies tongue swelling Physical Exam Vital Signs: Last Vital Signs Pulse 100 12/14/23 13:28 BP 127/88 12/14/23 13:28 BMI result Body Mass Index 26.9 Const General: cooperative, no acute distress, well developed and well groomed Nutritional Appearance: average body habitus and well nourished Orientation/consciousness: oriented to person, oriented to place and oriented to time Limitations: No language barrier HEENT Head: Yes normocephalic and Yes atraumatic Eyes General: appearance normal, both eyes and all related structures Pupils: Equal, round and reactive pupils present Neck Neck: Yes normal visual inspection and Yes no lymphadenopathy Thyroid: Thyroid normal Resp Effort & Inspection: normal respiratory effort and able to speak in complete sentences Auscultation: clear to auscultation bilaterally Cardio Rate: regular rate Rhythm: regular rhythm Heart sounds: Normal, physiologic split S2 sound present Peripheral pulses: radial pulses present and posterior tibial pulses present GI Inspection: No distended and No Abdominal panniculus present Palpation (GI): Soft to palpation, nontender, no guarding, not rigid and No hepatosplenomegaly present Percussion: Yes normal to percussion Auscultation: normal bowel sounds Rectal Exam - Female: deferred Skin General skin exam: no rashes or lesions noted, turgor normal, skin not dry, no jaundice, No spider nevi and no striae Rashes: no rashes Nails: normal Neuro General: oriented to person, oriented to place and oriented to time Cranial nerves: Yes Equal, round and reactive pupils present and Yes Normal hearing present Speech: No Abnormal speech present Extrem General: Yes normal to inspection, No clubbing, No cyanosis and No edema Psych Appearance: grossly normal and well kempt Mental Status: mental status grossly normal Speech and movement: Normal speech and movement present Affect: normal affect Attitude: cooperative Thought process: Normal thought process present and not confabulating Thought content: Normal thought content present Insight: Fair insight present (Psych) Judgement: Fair judgement present (Psych) Results Reviewed Results Reviewed: Laboratory Tests 11/07/23 12:25 Ferritin 201 GGT 21 Alpha Fetoprotein 2.6 TONY Screen POSITIVE A TONY Titer 1:320 H TONY Pattern Nuclear, Homogeneous A Anti-Mitochondrial Ab NEGATIVE Anti-Smooth Muscle Ab <20 HIV 1&2 Ab/P24 Ag 4thGn Nonreactive Assessment & Plan Assessment & Plan (1) CHÁVEZ (nonalcoholic steatohepatitis): Code(s): K75.81 - Nonalcoholic steatohepatitis (CHÁVEZ) Category: Medical (2) Transaminitis: Comment: BASELINE LABS 07/06/23 11:40 WBC 4.5 L Hgb 14.6 Hct 42.0 Plt Count 201 Estimated GFR > 60 Total Bilirubin 0.8 AST 36 H ALT 39 H Alkaline Phosphatase 88 C-Reactive Protein 0.17 02/14/23 09:50 Hepatitis A IgM Ab Nonreactive Hep Bs Antigen Negative Hep Bs Antibody NONREACTIVE Hep B Core Total Ab Nonreactive Hepatitis C Ab (EIA) Nonreactive 11/07/23 12:25 Ferritin 201 GGT 21 Alpha Fetoprotein 2.6 TONY Screen POSITIVE A TONY Titer 1:320 H TONY Pattern Nuclear, Homogeneous A Anti-Mitochondrial Ab NEGATIVE Anti-Smooth Muscle Ab <20 HIV 1&2 Ab/P24 Ag 4thGn Nonreactive US ABD WITH ELASTOGRAPHY 09/12/23 (F1-F2) CURRENT LABS US ABD WITH ELASTOGRAPHY 09/12/23 (F1-F2) IMPRESSION: 1. Liver elastography: Measurements are suggestive of compensated advanced chronic liver disease but need further test for confirmation. 2. The gallbladder is surgically absent. Code(s): R74.01 - Elevation of levels of liver transaminase levels Category: Medical Plan We review all the labs and it appears that this is CHÁVEZ. She is educated about slow steady weight loss, the avoidance of alcohol and control blood sugars as this 3 most important factors in controlling her liver health. She is aware that we will monitor her at six-month intervals. Return office visit in 6 months Coding Level of Care Code Est Pt Level 3 (83405) Diagnoses CHÁVEZ (nonalcoholic steatohepatitis) K75.81 Transaminitis R74.01
== END 2023-12-14 14:05 | disposition home or self-care (01) ==
PROVIDERS: PCP Family Medicine; Visit Provider Nurse Practitioner
DX: K75.81 Nonalcoholic steatohepatitis (NASH) (principal); R74.01 Elevation of levels of liver transaminase levels
CPT/HCPCS: 99213

== ENCOUNTER → 2023-12-14 13:16 | Outpatient (BNVA) | payer MEDICARE, SELFPAY | PROVIDERS: PCP Family Medicine; Visit Provider Nurse Practitioner | DX: K75.81 Nonalcoholic steatohepatitis (NASH) (principal); R74.01 Elevation of levels of liver transaminase levels | CPT/HCPCS: 99212 ==

== ENCOUNTER 2024-01-12 15:22 | Outpatient (REF) | payer MEDICARE, SELFPAY ==
[2024-01-12 17:35] LABS: MANUAL DIFF FLAG NO
[2024-01-12 17:38] LABS: Appearance Urine Clear; Color Urine Yellow; Glucose Urine UA Negative (Negative); Leukocyte Esterase Urine Trace (Negative); Nitrite Urine Negative (Negative); UMIC TRIGGER UA YES; Urine Blood Negative (Negative); Urine Ketones Negative (Negative); Urine Protein Negative (Neg-Trace)
[2024-01-12 17:40] LABS: Bacteria Urine None Seen (None Seen); Hyaline Casts Urine 0-2 /LPF (0-2); RBC Urine 0-2 /HPF (0-2); WBC Urine 0-5 /HPF (0-5)
[2024-01-12 17:47] LABS: Basophils Percent Auto 0.2 % (0-2); Hematocrit 38.6 % (37.0-47.0); Hemoglobin 13.4 g/dl (12.0-16.0); Imm Gran Abs Auto 0.02 X10*3/uL (0.00-0.03); Imm Gran Pct Auto 0.4 % (0.0-0.4); Lymphocytes Absolute Auto 1.5 X10*3/uL (1.2-4.9); Lymphocytes Percent Auto 27.8 % (20-40); Mean Corpuscular HGB Conc 34.7 g/dl (31.0-35.0); Mean Corpuscular Volume 92.1 fL (80.0-98.0); Mean Platelet Volume 9.2 fL (9.4-12.3); Monocytes Absolute Auto 0.7 X10*3/uL (0.1-1.2); Monocytes Percent Auto 13.2 % (2-11); Neutrophils Absolute Auto 3.1 x10*3/uL (2.0-8.3); Neutrophils Percent Auto 58.4 % (45-73); Platelet Count 212 X10*3/uL (160-400); Red Blood Count 4.19 X10*6/uL (4.20-5.50); Red Cell Distribution Width 12.9 % (11.0-16.0); White Blood Count 5.3 X10*3/uL (4.8-10.8)
[2024-01-12 17:52] LABS: Alanine Aminotransferase 34 U/L (0-31); Alkaline Phosphatase 75 U/L (39-117); Anion Gap 14 (12-20); Aspartate Amino Transferase 35 U/L (5-31); Bilirubin Total 0.5 mg/dL (0.0-1.0); Blood Urea Nitrogen 17 mg/dL (9-16); C Reactive Protein 0.14 mg/dL (< or = 0.50); Calcium 9.5 mg/dL (8.4-10.2); Carbon Dioxide 22 mmol/L (22-29); Chloride 110 mmol/L (96-108); Estimated Glomerular Filt Rate > 60; Glucose Random 126 mg/dL (60-115); Sodium 142 mmol/L (135-145); Total Protein 7.6 g/dL (6.5-8.0)
[2024-01-12 18:09] LABS: Creatinine Urine 49.78 mg/dL; Total Protein Urine Random < 7 mg/dL (<12)
[2024-01-12 18:24] LABS: Erythrocyte Sedimentation Rate 11 MM/HR (0-20)
== END 2024-01-12 15:23 | disposition home or self-care (01) ==
LOC: HO.WFDLDS 15:22
PROVIDERS: Visit Provider Student in an Organized Health Care Education/Training Program
DX: M06.9 Rheumatoid arthritis, unspecified (principal)
CPT/HCPCS: 36415; 80053; 81001; 82570; 84156; 85025; 85652; 86140; 86160

== ENCOUNTER 2024-01-24 10:44 | Outpatient (AMB) | payer MEDICARE, SELFPAY ==
[2024-01-24 10:49] VITALS: BP 132/78; PULSE 91; O2SAT 97; BMI 27.1
--- NOTE | 2024-01-24 10:49 | MHC.OFFVIS ---
Vital Signs 01/24/24 10:49 Height 5 ft 2 in Weight 148 lb 5.938 oz BMI 27.1 BP 132/78 Blood Pressure Location Lt brachial Position Sitting Pulse 91 Pulse Source Pulse Oximeter Pulse Oximetry (%) 97 Oxygen Delivery Method Room Air Intake Visit Reasons: RA Intake Note: Patient last seen by Doctor Valerie on 08/21/23. Presents today for RA follow up and test results. Allergies No Known Allergies Allergy (Verified 01/24/24 10:50) Medication List - Last Reconciled 01/24/24 by Octavio Padilla MD atorvastatin 80 mg PO DAILY 90 days [id number] 50-325-40 mg 1 - 2 tabs PO DAILY PRN 30 days cholecalciferol (vitamin D3) 25 mcg PO DAILY diclofenac sodium 1% 4 grams topical QID 30 days Enbrel SureClick (etanercept) 50 mg subcut QWEEK NS ferrous sulfate (FeroSul) 325 mg PO DAILY gabapentin 100 mg PO BEDTIME PRN inulin (Fiber Gummies) grams PO irbesartan 150 mg PO QAM 90 days metoprolol succinate ER 12.5 mg (1/2 x 25 mg) PO DAILY 90 days multivitamin 1 tab PO DAILY nabumetone 500 mg PO BID PRN naproxen sodium (Aleve) 440 mg (2 x 220 mg) PO BID PRN 30 days Prolia (denosumab) 60 mg subcut [id number] NS tramadol 05. to 1 tab orally daily PRN; [facility] verified. Partial refill upon request. #15 tabs per 30 days. 30 days zolpidem 5 - 10 mg (0.5 - 1 x 10 mg) PO BEDTIME PRN 30 days HPI Comments Details: 68-year-old female with longstanding deforming seronegative RA returns for follow-up. Remains on Enbrel 50 mg weekly. She states that she is doing reasonably well overall. That is intermittent achiness and stiffness of different joints especially the inside of her right hip as well as the outside of her right hip. Denies any swollen joints. Has not had any falls. Prolia injection 10/2023 was uneventful. She was recently evaluated by Dr. 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 Initial history: This is a 67-year-old female who presents for evaluation of multiple joint pain. Patient stated that since 1976 she was diagnosed with rheumatoid arthritis after fluid was drained from her wrist. She has been following up with Rheumatology for many years. Patient is unaware whether she was ever on DMARDs. She cannot remember. Most recent he was evaluated by Dr. Smallwood and was told that she has burned out rheumatoid arthritis and her symptoms are due to osteoarthritis. Patient has had left thumb surgery for osteoarthritis. She states that her left foot toes are turning similar to the right foot, this has been ongoing for the last 6 months. She is having low back pain radiating to her right thigh as well as right groin pain. Patient is taking nabumetone currently. She was intermittently taking 25 mg of tramadol which provides some relief. she does not believe she was evaluated by Pain Management before. She broke her left wrist in 2017 which was treated non operatively. She was then started on alendronate which she took for about 6 months then stopped it due to GI upset. [facility] Medical History Elevated fasting glucose Knee pain History of shingles Laboratory exam ordered as part of routine general medical examination Breast cancer screening by mammogram Acute left flank pain Elevated liver enzymes Adult general medical exam Screening for colon cancer Immunization counseling Osteoporosis History of kidney stones Diverticulitis Surgical History History of colostomy reversal H/O hand surgery History of hysterectomy History of tubal ligation History of hernia surgery History of carpal tunnel surgery H/O arthroscopic knee surgery Family History Family/Other Family history of autoimmune disorder Social History Housing: House Patient Tobacco Use Status: Former Tobacco user e-Cigarette/Vaping Use: Never Used Second Hand Smoke Exposure: No service: No Current occupational status: retired 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 Current occupational exposures/hazards: No Cognitive needs: No Hearing needs: No Vision needs: No Female Reproductive History Menstrual Total pregnancies: 5 Number of Living Children: 2 Ab induced: 2 Ab spontaneous: 1 Review of Systems Musc Reports deformity, Reports arthralgias and Denies joint swelling Physical Exam Vital Signs: Last Vital Signs Pulse 91 01/24/24 10:49 BP 132/78 01/24/24 10:49 Pulse Ox 97 01/24/24 10:49 Oxygen Delivery Method Room Air 01/24/24 10:49 BMI result Body Mass Index 27.1 Const General: cooperative, healthy appearing and comfortable Nutritional Appearance: overweight Orientation/consciousness: patient oriented x3 Limitations: no limitations HEENT Head: Yes normocephalic and Yes atraumatic Mouth: moist mucous membranes Resp Effort & Inspection: normal respiratory effort and able to speak in complete sentences Auscultation: clear to auscultation bilaterally Cardio Rate: regular rate Skin General skin exam: no rashes or lesions noted Neuro General: patient oriented x3 Extrem Other: Soft tissue swelling of dorsal aspect left wrist, chronic, nontender to palpation. No wrist pain with flexion and extension bilaterally Right 5th MCP tenderness Synovial thickening of her MCPs bilaterally., mild subluxation of PIPs, few Cookson neck deformities of both hands Multiple left hand trigger fingers Normal range of motion of both elbows and shoulders without pain Negative straight leg raise test bilaterally No groin pain with flexion adduction and internal rotation of hips bilaterally No ankle swelling , warmth or tenderness bilaterally Deformities of both toes with bunions, bunionette and fibular deviation bilaterally. Results Reviewed Results Reviewed: Diagnostic workup from 1976? Joint fluid cell count 40,000 TONY positive 1-32 homogeneous + peripheral RA screen negative Per Dr. Elmo Sepulveda in 1976: History of additive polyarthralgias including upper and lower extremities, stiff hands with associated painful grasp, arthrocentesis of the wrist yielded synovial fluid with elevated white cells, she had multiple flexor tenosynovitis on exam, mild symmetrical synovitis of the wrists, bilateral carpal tunnel syndrome 1992? Patient has been maintained on low-dose steroids taper down to 2.5 mg every 3 days TONY 1-160 speckled Macie test negative On hydroxychloroquine 2 tabs daily Assessment & Plan Assessment & Plan (1) Rheumatoid arthritis: Comment: seroneg dx 1976 HCQ for some time in the incomplete records [facility] 06/2023 Code(s): M06.9 - Rheumatoid arthritis, unspecified Category: Medical Qualifiers: Rheumatoid arthritis location: multiple sites Rheumatoid factor presence: without rheumatoid factor Qualified Code(s): M06.09 - Rheumatoid arthritis without rheumatoid factor, multiple sites Plan: This is a 68-year-old female with seronegative RA who returns for follow-up. On Enbrel weekly. Doing better overall. Less swollen and tender joints. Patient mentions about 40% improvement in overall stiffness and mobility Continue with Enbrel 50 mg weekly Follow-up in 3 months (2) Osteoporosis: Comment: DEXA 08/2023 L-spine T-score -0.9 LEFT FEMUR, NECK: T-score -4.1 LEFT FEMUR, TOTAL: T-score -4.4 Left wrist fracture 2016. Alendronate for 6 months in 2017, stopped due to GI upset First dose of Prolia 10/2023 Code(s): M81.0 - Age-related osteoporosis without current pathological fracture Category: Medical Qualifiers: Osteoporosis type: age-related Presence of current pathological fracture: without current pathological fracture Qualified Code(s): M81.0 - Age-related osteoporosis without current pathological fracture Plan: Severe osteoporosis and history of left wrist fracture. Received the 1st dose of Prolia 10/2023 and it was uneventful. Advised patient to continue with vitamin-D supplementation. Check vitamin-D level before next visit, next Prolia injection 04/2024 (3) High risk medication use: Code(s): Z79.899 - Other extermination inspector (current) drug therapy Category: Medical Plan: Side effects of Enbrel were discussed with the patient in detail including increased risk of infection, demyelinating disease, reactivation of latent TB, possible increased risk of solid and skin tumors. Patient fully aware. Patient has history of basal cell carcinoma that was excised. She gets a yearly skin exam by Dermatology. Advised patient to seek medical care ROULA if patient has an infection and advised patient to stop the medication until the infection is resolved. Plan I spent 27 minutes reviewing patient's chart, evaluating patient, ordering diagnostic workup, counseling patient and documenting in the chart Orders: Orders Vitamin D 25-OH (D2 and D3) 3 Months M81.0 - Age-related osteoporosis without current pathological fracture Basic Metabolic Panel 3 Months M81.0 - Age-related osteoporosis without current pathological fracture Coding Level of Care Code Est Pt Level 4 (83124) Diagnoses Rheumatoid arthritis of multiple sites with negative rheumatoid factor M06.09 Rheumatoid arthritis location: multiple sites Rheumatoid factor presence: without rheumatoid factor Age-related osteoporosis without current pathological fracture M81.0 Osteoporosis type: age-related Presence of current pathological fracture: without current pathological fracture High risk medication use Z79.899
== END 2024-01-24 11:18 | disposition home or self-care (01) ==
PROVIDERS: PCP Family Medicine; Visit Provider Student in an Organized Health Care Education/Training Program
DX: M06.09 Rheumatoid arthritis without rheumatoid factor, multiple sites (principal); M81.0 Age-related osteoporosis without current pathological fracture; Z79.899 Other long term (current) drug therapy
CPT/HCPCS: 99214

== ENCOUNTER → 2024-01-24 10:44 | Outpatient (BNVA) | payer MEDICARE, SELFPAY | PROVIDERS: PCP Family Medicine; Visit Provider Student in an Organized Health Care Education/Training Program | DX: M06.09 Rheumatoid arthritis without rheumatoid factor, multiple sites (principal); M81.0 Age-related osteoporosis without current pathological fracture; Z79.899 Other long term (current) drug therapy | CPT/HCPCS: 99212 ==

== ENCOUNTER 2024-04-15 12:03 | Outpatient (AMB) | payer MEDICARE, SELFPAY ==
--- NOTE | 2024-04-15 12:12 | MHC.PC.OV ---
Vital Signs 04/15/24 12:25 Height 5 ft 2 in Weight 216 lb BMI 39.5 BP 132/91 H Blood Pressure Location Lt brachial Position Sitting Respiration 16 Pulse 82 Pulse Source Pulse Oximeter Temp 98.2 F Temp Source Temporal Artery Scan Pulse Oximetry (%) 95 Oxygen Delivery Method Room Air Intake Visit Reasons: Annual Physical - see comments Intake Note: annual Is last menstrual period known: No Post menopausal: Yes Patient : No Allergies No Known Allergies Allergy (Verified 04/15/24 12:19) Medication List - Last Reconciled 04/15/24 by Ha Griggs MD ashwagandha root extract mg PO atorvastatin 80 mg PO DAILY 90 days avgbcqqwdl-cffdwfmpgogdt-aejh 50-325-40 mg 1 - 2 tabs PO DAILY PRN 30 days cholecalciferol (vitamin D3) 25 mcg PO DAILY Enbrel SureClick (etanercept) 50 mg subcut QWEEK NS ferrous sulfate (FeroSul) 325 mg PO DAILY gabapentin 100 mg PO BEDTIME PRN inulin (Fiber Gummies) grams PO irbesartan 150 mg PO QAM 90 days metoprolol succinate ER 12.5 mg (1/2 x 25 mg) PO DAILY 90 days multivitamin 1 tab PO DAILY nabumetone 500 mg PO BID PRN Prolia (denosumab) 60 mg subcut [id number] NS tramadol 05. to 1 tab orally daily PRN; MassPat verified. Partial refill upon request. #15 tabs per 30 days. 30 days zolpidem 5 - 10 mg (0.5 - 1 x 10 mg) PO BEDTIME PRN 30 days Tobacco use date assessed: 04/15/24 Fall risk assessment: No Falls in past year Last assessed Fall Risk: 04/15/24 Dental Screening Dental Screen Date: 04/15/24 Did you have a dental visit in the last 12 months?: Yes Did you have a dental problem in the last 6 months where you did not have access to dental care?: No Was dental information given to patient?: Patient has dentist HPI Annual Physical - see comments HPI Details 68 y/o female presents for a CPE with f/u labs and health maintenance. Labs drawn 01/12/24. Reviewed labs with pt. Elevated liver enzymes - AST 35 and ALT 34. No recent lipid panel. Blood pressure today 132/91, 82p. She is on irbesartan 150mg, metoprolol 12.5mg. Ongoing complaints of low back pain. HPI Comments History of Present Illness Details Documentation assistance for Ha Griggs MD, was provided by Abelardo Griffin, Kitchen Work Supervisor on 04/13/2024 at 12:37 PM EST. I, Dr. Griggs, have read, observed, and verified documentation. [facility] Medical History Elevated fasting glucose Knee pain History of shingles Laboratory exam ordered as part of routine general medical examination Breast cancer screening by mammogram Acute left flank pain Elevated liver enzymes Adult general medical exam Screening for colon cancer Immunization counseling Osteoporosis History of kidney stones Diverticulitis Surgical History History of colostomy reversal H/O hand surgery History of hysterectomy History of tubal ligation History of hernia surgery History of carpal tunnel surgery H/O arthroscopic knee surgery Family History Family/Other Family history of autoimmune disorder Social History (Updated 04/15/24 @ 12:22 by Madina Chandler [facility]) Housing: House Patient Tobacco Use Status: Former Tobacco user e-Cigarette/Vaping Use: Never Used Second Hand Smoke Exposure: No service: No Current occupational status: 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 1. Little interest or pleasure in doing things: several days 2. Feeling down, depressed, or hopeless: several days 3. Trouble falling or staying asleep, or sleeping too much: not at all 4. Feeling tired or having little energy: several days 5. Poor appetite or overeating: not at all 6. Feeling bad about yourself - or that you are a failure or have let yourself or your family down: not at all 7. Trouble concentrating on things, such as reading the newspaper or watching television: not at all 8. Moving or speaking so slowly that other people could have noticed. Or the opposite - being so fidgety or restless that you have been moving around a lot more than usual: not at all 9. Thoughts that you would be better off or of hurting yourself in some way: not at all Total score: 3 Depression Screening Interpretation: Negative Depression Screening Done: Yes 09176 - PHQ-9 Billing: Yes Source: Developed by Drs. Elmo Barahona, Tory Anderson, Derick Sahni and colleagues, with an educational ramirez from [employer]. Thrive Questionnaire Date Thrive assessed: 04/15/24 I am a: Patient What is your living situation today?: I have a steady place to live Within the past 12 months, did the food you bought not last and you didn't have the money to get more?: Sometimes True Within the past 12 months, did you worry whether your food would run out before you got money to buy more?: Sometimes True Do you have trouble paying for medicines?: Yes Do you have trouble getting transportation to medical appointments?: No Do you have trouble paying your heating and electricity bill?: No Do you have trouble taking care of your child, family member or friend?: No Do you have trouble with day-to-day activities such as bathing, preparing meals, shopping, managing finances, etc.?: No Are you currently unemployed and looking for a job?: No Are you interested in more education?: No Please select the resources that you would like help with: None Currently or been in a relationship where the following occur: No concerns reported THRIVE Score: 2 AUDIT C Alcohol Use Questionnaire (AUDIT-C) 1. How often do you have a drink containing alcohol?: Never 3. How often do you have six or more drinks on one occasion?: Never Total Score: 0 Score Reviewed/Action Taken: Yes MILENA-7 AMB Questionnaire MILENA-7 Date MILENA - 7 assessed: 04/15/24 Feeling nervous, anxious, or on edge: 0 = Not at all Not being able to stop or control worryin = Several days Worrying too much about different things: 1 = Several days Trouble relaxin = Not at all Being so restless that it is hard to sit still: 0 = Not at all Becoming easily annoyed or irritable: 0 = Not at all Feeling afraid as if something awful might happen: 0 = Not at all Total MILENA-7 score (0-4 normal; 5-9 mild; 10-14 moderate; 15-21 severe): 2 Source: Developed by Drs. Elmo Barahona, Tory Anderson, Derick Sahni and colleagues, with an educational ramirez from [employer]. MILENA-7 Assessment Billing MILENA-7 Assessment Tool: MILENA-7 Assessment 83840 Review of Systems Const Denies chills, Denies fatigue, Denies fever(s), Denies headache(s) and Denies weakness Eyes Denies change in vision ENT Denies dizziness, Denies headache(s), Denies hearing loss, Denies nasal congestion, Denies sinus pain, Denies sinus pressure and Denies sore throat Card Denies chest pain, Denies lightheadedness, Denies dyspnea and Denies other (palpitations) Resp Denies cough, Denies dyspnea and Denies wheezing GI Denies abdominal pain, Denies melena, Denies hematochezia, Denies change in bowel habits, Denies dyspepsia and Denies nausea Denies hematuria and Denies dysuria Musc Denies abnormal gait, Denies myalgias, Denies arthralgias, Denies numbness and Denies tingling Skin/Breast Denies rash, Denies unusual bruising and Denies wounds Neuro Denies abnormal gait, Denies dizziness, Denies headache(s), Denies memory loss, Denies numbness, Denies Sensory deficit (Neuro), Denies tingling and Denies weakness Psych Denies anxiety, Denies depression and Denies memory loss Endo Denies cold intolerance, Denies fatigue, Denies heat intolerance, Denies polydipsia and Denies polyuria Philippe/Lymph Denies easy bleeding and Denies easy bruising Aller/Immun Denies wheezing Physical exam (Primary Care) Vital Signs: Last Vital Signs Temp 98.2 F 04/15/24 12:25 Pulse 82 04/15/24 12:25 Resp 16 04/15/24 12:25 BP 132/91 H 04/15/24 12:25 Pulse Ox 95 04/15/24 12:25 Oxygen Delivery Method Room Air 04/15/24 12:25 BMI result Body Mass Index 39.5 Tobacco/Smoking Status: Tobacco use Status Tobacco use date assessed 04/15/24 04/15/24 12:26 Patient Tobacco Use Status Former Tobacco user 04/15/24 12:22 e-Cigarette/Vaping Use Never Used 04/15/24 12:22 PHQ-9: PHQ-9 Score PHQ-9: Total score 3 04/15/24 12:17 Depression Screening Interpretation: Negative Thrive Assessment: Date of Thrive Assessment Date Thrive assessed 04/15/24 04/15/24 12:17 Currently or been in a relationship where the following occur: No concerns reported Const General: no acute distress, well developed, alert and awake Nutritional Appearance: well nourished Orientation/consciousness: patient oriented x3 HENMT Head: Yes normocephalic and Yes atraumatic Ears: hearing grossly normal bilaterally and TM's normal bilaterally General nose exam: Normal external nose present and Normal nares present Mouth: Normal oral and palatal mucosa present and moist mucous membranes Teeth and gingiva: dentition normal Throat: Yes posterior oropharynx normal Eyes General: appearance normal, both eyes and all related structures Pupils: Equal, round and reactive pupils present and Pupil accommodation reflex normal EOM: EOMs intact bilaterally Neck Neck: Yes normal visual inspection, Yes no lymphadenopathy and Yes trachea midline Thyroid: Thyroid normal Carotids: no bruits Lymphatic: no lymphadenopathy noted Chest Chest palpation & inspection: normal inspection of the chest Resp Effort & Inspection: normal respiratory effort Auscultation: clear to auscultation bilaterally Cardio Rate: regular rate Rhythm: regular rhythm Heart sounds: S1 normal heart sound present, S2 normal heart sound present, no gallops, no murmurs and no rubs Bruits: no abdominal aortic bruits and no carotid bruits GI Palpation (GI): No Abdominal aortic bruit present, Soft to palpation, nontender, No hepatosplenomegaly present and No Rebound tenderness present Auscultation: normal bowel sounds General: Yes no CVA tenderness Back/Spine/Pelvis Back: no CVA tenderness Cervical Spine: cervical ROM normal and No Cervical spine tenderness Thoracic/Lumbar Spine: thoraco-lumbar ROM normal, No pain with thoraco-lumbar ROM, No thoracic spinal tenderness and No lumbar spinal tenderness Skin Lesions: no lesions Rashes: no rashes Trauma: no lacerations or abrasions Wounds: no wounds Nails: normal Neuro General: patient oriented x3 Cranial nerves: Yes Equal, round and reactive pupils present Cognition (Neuro): normal cognition Gait exam (Neuro): Normal gait present Motor exam (neuro): 5/5 motor strength present throughout Sensory Exam: No Sensory deficit (Neuro) Deep tendon reflexes (DTR's): Right patellar reflex intensity grade: 2+ and Left patellar reflex intensity grade: 2+ Extrem General: Yes normal to inspection and No edema Psych Appearance: grossly normal Affect: normal affect Attitude: cooperative Thought process: Normal thought process present Coding Level of Care Code Est Pt Level 3 (86431) Est Pt Prev Care >65y(53670) Diagnoses Adult general medical exam Z00.00 Essential hypertension I10 Hyperlipidemia E78.5 Age-related osteoporosis without current pathological fracture M81.0 Osteoporosis type: age-related Presence of current pathological fracture: without current pathological fracture Elevated liver enzymes R74.8 Screening for colon cancer Z12.11 Breast cancer screening by mammogram Z12.31 Back pain M54.9 Additional Codes MILENA-7 Assessment Billing - MILENA-7 Assessment Tool: MILENA-7 Assessment 00434 ([id number]) Assessment & Plan Assessment & Plan (1) Adult general medical exam: Code(s): Z00.00 - Encounter for general adult medical examination without abnormal findings Category: Medical Plan: 68-year-old?female?presents?for?complete?physical?exam Encouraged?healthy?diet?with?active?lifestyle (2) Essential hypertension: Code(s): I10 - Essential (primary) hypertension Category: Medical Plan: Diastolic?blood?pressure?is?a?little?above?goal.??Goal?is?less?than?140/90 She?is?taking?metoprolol?12.5?mg?daily?and?had?been?on?25?mg?daily?in?the?past?but?noted?some?fatigue. She?wants?to?try?increasing?her?dose?again?so?she?will?try?12.5?mg?b.i.d. She?will?let?me?know?if?she?has?any?problems (3) Hyperlipidemia: Code(s): E78.5 - Hyperlipidemia, unspecified Category: Medical Plan: She?is?on?atorvastatin?80?mg?daily LDL?cholesterol?was?a?little?above?goal?of?less?than?100?at?last?Check Will?recheck?this?prior?to?next?visit (4) Osteoporosis: Comment: DEXA 08/2023 L-spine T-score -0.9 LEFT FEMUR, NECK: T-score -4.1 LEFT FEMUR, TOTAL: T-score -4.4 Left wrist fracture 2017. Alendronate for 6 months in 2017, stopped due to GI upset First dose of Prolia 10/2023 Code(s): M81.0 - Age-related osteoporosis without current pathological fracture Category: Medical Qualifiers: Osteoporosis type: age-related Presence of current pathological fracture: without current pathological fracture Qualified Code(s): M81.0 - Age-related osteoporosis without current pathological fracture Plan: Now?on?Prolia?and?followed?by??Valerie Continue?good?source?of?vitamin-D?and?calcium?and?continue?Prolia Follow-up?with?rheumatology?as?recommended (5) Elevated liver enzymes: Code(s): R74.8 - Abnormal levels of other serum enzymes Category: Medical Plan: Mildly?elevated?liver?enzyme Was?seen?by?Gastroenterology?and?reassured Control?weight?and?will?follow?liver?enzyme (6) Screening for colon cancer: Code(s): Z12.11 - Encounter for screening for malignant neoplasm of colon Category: Medical Plan: Cologuard?in?2021?was?negative Will?recheck?in?2024 (7) Breast cancer screening by mammogram: Code(s): Z12.31 - Encounter for screening mammogram for malignant neoplasm of breast Category: Medical Plan: Mammogram in [place] this Summer pt reports was normal (8) Back pain: Code(s): M54.9 - Dorsalgia, unspecified Category: Medical Plan: Ongoing?back?pain.??She?has?had?a?script?for?tramadol?0.5?- 1 tab?daily?p.r.n.?pain?which?helps?but?patient?notes?that?she?has?had?or?pain?lately. Had?been?getting?15?tabs?per?30?days Will?increase?this?to?20?tabs?per?30?days Use?sparingly Monitoring Medications: Changed From metoprolol succinate ER 12.5 mg (1/2 x 25 mg) PO DAILY 90 days 45 tabs 2RF To metoprolol succinate ER 12.5 mg (1/2 x 25 mg) PO BID 90 days 90 tabs 2RF From tramadol 05. to 1 tab orally daily PRN; MassPat verified. Partial refill upon request. #15 tabs per 30 days. 30 days 15 tabs 0RF pain M06.9 - Rheumatoid arthritis, unspecified, M54.9 - Dorsalgia, unspecified To tramadol 05. to 1 tab orally daily PRN; MassPat verified. Partial refill upon request. #20 tabs per 30 days. 30 days 20 tabs 0RF pain M06.9 - Rheumatoid arthritis, unspecified, M54.9 - Dorsalgia, unspecified Refilled rcncgbtmlf-oxvzeducxgbxm-wnns 50-325-40 mg 1 - 2 tabs PO DAILY 30 days PRN 10 tabs 0RF pain/headache
[2024-04-15 12:25] VITALS: BP 132/91; PULSE 82; RESP 16; TEMP 36.8; O2SAT 95; BMI 39.5
== END 2024-04-15 12:54 | disposition home or self-care (01) ==
LOC: HO.HMCFM 12:04
PROVIDERS: PCP Family Medicine; Visit Provider Family Medicine
DX: Z00.00 Encounter for general adult medical examination without abnormal findings (principal); M54.9 Dorsalgia, unspecified; I10 Essential (primary) hypertension; E78.5 Hyperlipidemia, unspecified; M81.0 Age-related osteoporosis without current pathological fracture; R74.8 Abnormal levels of other serum enzymes; Z12.11 Encounter for screening for malignant neoplasm of colon; Z12.31 Encounter for screening mammogram for malignant neoplasm of breast

== ENCOUNTER → 2024-04-15 12:03 | Outpatient (BNVA) | payer MEDICARE, SELFPAY | PROVIDERS: PCP Family Medicine; Visit Provider Family Medicine | DX: Z00.01 Encounter for general adult medical examination with abnormal findings (principal); I10 Essential (primary) hypertension; E78.5 Hyperlipidemia, unspecified; M81.0 Age-related osteoporosis without current pathological fracture; R74.8 Abnormal levels of other serum enzymes; M54.9 Dorsalgia, unspecified | CPT/HCPCS: 36415; 80048; 82306; 96127; 99212; 99397 ==

== ENCOUNTER 2024-04-15 13:02 | Outpatient (REF) | payer MEDICARE, SELFPAY ==
[2024-04-15 14:54] LABS: Anion Gap 12 (12-20); Blood Urea Nitrogen 17 mg/dL (9-16); Calcium 10.5 mg/dL (8.4-10.2); Carbon Dioxide 26 mmol/L (22-29); Chloride 104 mmol/L (96-108); Estimated Glomerular Filt Rate > 60; Glucose Random 114 mg/dL (60-115); Potassium 3.9 mmol/L (3.3-5.1); Sodium 138 mmol/L (135-145)
[2024-04-20 16:53] LABS: Vitamin D 25-OH, D2 <4 ng/mL; Vitamin D 25-OH, D3 44 ng/mL; Vitamin D 25-OH, Total 44 ng/mL (30-100)
== END 2024-04-15 13:03 | disposition home or self-care (01) ==
LOC: HO.WFDLDS 13:02
PROVIDERS: Visit Provider Student in an Organized Health Care Education/Training Program
DX: M81.0 Age-related osteoporosis without current pathological fracture (principal)
CPT/HCPCS: 36415; 80048; 82306

== ENCOUNTER 2024-04-24 11:05 | Outpatient (AMB) | payer MEDICARE, SELFPAY ==
--- NOTE | 2024-04-24 11:13 | MHC.OFFVIS ---
Vital Signs 04/24/24 11:19 Height 5 ft 1 in Weight 152 lb 1.903 oz BMI 28.7 BP 134/82 Blood Pressure Location Lt brachial Position Sitting Pulse 98 Pulse Source Pulse Oximeter Pulse Oximetry (%) 97 Oxygen Delivery Method Room Air Intake Visit Reasons: RA/cm Intake Note: Patient presents for RA. Allergies No Known Allergies Allergy (Verified 04/24/24 11:19) Medication List - Last Reconciled 04/24/24 by Octavio Padilla MD alendronate 70 mg PO QWEEK ashwagandha root extract mg PO atorvastatin 80 mg PO DAILY 90 days qxvaplhwpw-wmcdvcqytnmws-ukui 50-325-40 mg 1 - 2 tabs PO DAILY PRN 30 days cholecalciferol (vitamin D3) 25 mcg PO DAILY Enbrel SureClick (etanercept) 50 mg subcut QWEEK NS ferrous sulfate (FeroSul) 325 mg PO DAILY gabapentin 100 mg PO BEDTIME PRN inulin (Fiber Gummies) grams PO irbesartan 150 mg PO QAM 90 days metoprolol succinate ER 12.5 mg (1/2 x 25 mg) PO BID 90 days multivitamin 1 tab PO DAILY nabumetone 500 mg PO BID PRN tramadol 05. to 1 tab orally daily PRN; MassPat verified. Partial refill upon request. #20 tabs per 30 days. 30 days zolpidem 5 - 10 mg (0.5 - 1 x 10 mg) PO BEDTIME PRN 30 days HPI Comments Details: 68-year-old female with longstanding deforming seronegative RA returns for follow-up. Remains on Enbrel 50 mg weekly. She states that she is doing reasonably well overall. She has been having some right knee pain. She attributes it to putting on some weight over the last few weeks. She states that since starting Enbrel she has not had any significant improvement. Her left 2nd toe is turning. She has to put davis wool to keep it from encroaching on her left big toe. Patient has co-pay was more than 300 dollars for Prolia injection back in 10/2023. Does not want to do it again. She was started on alendronate by her OBGYN. She has been tolerating it well Initial history: This is a 67-year-old female who presents for evaluation of multiple joint pain. Patient stated that since 1976 she was diagnosed with rheumatoid arthritis after fluid was drained from her wrist. She has been following up with Rheumatology for many years. Patient is unaware whether she was ever on DMARDs. She cannot remember. Most recent he was evaluated by Dr. Smallwood and was told that she has burned out rheumatoid arthritis and her symptoms are due to osteoarthritis. Patient has had left thumb surgery for osteoarthritis. She states that her left foot toes are turning similar to the right foot, this has been ongoing for the last 6 months. She is having low back pain radiating to her right thigh as well as right groin pain. Patient is taking nabumetone currently. She was intermittently taking 25 mg of tramadol which provides some relief. she does not believe she was evaluated by Pain Management before. She broke her left wrist in 2017 which was treated non operatively. She was then started on alendronate which she took for about 6 months then stopped it due to GI upset. [facility] Medical History Screening for colon cancer Breast cancer screening by mammogram Elevated liver enzymes Adult general medical exam Elevated fasting glucose Knee pain History of shingles Laboratory exam ordered as part of routine general medical examination Acute left flank pain Immunization counseling Osteoporosis History of kidney stones Diverticulitis Surgical History History of colostomy reversal H/O hand surgery History of hysterectomy History of tubal ligation History of hernia surgery History of carpal tunnel surgery H/O arthroscopic knee surgery Family History Family/Other Family history of autoimmune disorder Social History Housing: House Patient Tobacco Use Status: Former Tobacco user e-Cigarette/Vaping Use: Never Used Second Hand Smoke Exposure: No service: No Current occupational status: retired 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 Current occupational exposures/hazards: No Cognitive needs: No Hearing needs: No Vision needs: No Female Reproductive History Menstrual Total pregnancies: 5 Number of Living Children: 2 Ab induced: 2 Ab spontaneous: 1 Review of Systems Musc Reports deformity, Reports arthralgias and Denies joint swelling Physical Exam Vital Signs: Last Vital Signs Pulse 98 04/24/24 11:19 BP 134/82 04/24/24 11:19 Pulse Ox 97 04/24/24 11:19 Oxygen Delivery Method Room Air 04/24/24 11:19 BMI result Body Mass Index 28.7 Const General: cooperative, healthy appearing and comfortable Nutritional Appearance: overweight Orientation/consciousness: patient oriented x3 Limitations: no limitations HEENT Head: Yes normocephalic and Yes atraumatic Mouth: moist mucous membranes Resp Effort & Inspection: normal respiratory effort and able to speak in complete sentences Cardio Rate: regular rate Skin General skin exam: no rashes or lesions noted Neuro General: patient oriented x3 Extrem Other: Soft tissue swelling of dorsal aspect left wrist, chronic, nontender to palpation. No wrist pain with flexion and extension bilaterally Right 5th MCP tenderness Synovial thickening of her MCPs bilaterally., mild subluxation of PIPs, few [place] neck deformities of both hands Multiple left hand trigger fingers Normal range of motion of both elbows and shoulders without pain Negative straight leg raise test bilaterally No groin pain with flexion adduction and internal rotation of hips bilaterally No ankle swelling , warmth or tenderness bilaterally Deformities of both toes with bunions, bunionette and fibular deviation bilaterally. Left 2nd toe is turning towards her left big toe Assessment & Plan Assessment & Plan (1) Rheumatoid arthritis: Comment: seroneg dx 1976 HCQ for some time in the incomplete records Enbrel 06/2023 Code(s): M06.9 - Rheumatoid arthritis, unspecified Category: Medical Qualifiers: Rheumatoid arthritis location: multiple sites Rheumatoid factor presence: without rheumatoid factor Qualified Code(s): M06.09 - Rheumatoid arthritis without rheumatoid factor, multiple sites Plan: This is a 68-year-old female with seronegative RA who returns for follow-up. On Enbrel weekly. She has been on Enbrel now for approximately 10 months. Per patient there has not been any significant improvement. She continues to deformity of her toes. At this time it was unclear whether Enbrel helped her condition much, she may have had burnt out RA advised patient to discontinue Enbrel for one-month and monitor her symptoms, if feeling worse, restart Enbrel, if feeling about the same, keep Enbrel off Re-evaluate in 6 months (2) Osteoporosis: Comment: DEXA 08/2023 L-spine T-score -0.9 LEFT FEMUR, NECK: T-score -4.1 LEFT FEMUR, TOTAL: T-score -4.4 Left wrist fracture 2017. Alendronate for 6 months in 2017, stopped due to GI upset. First dose of Prolia 10/2023. Could not continue with Prolia due to high co-pay Alendronate restarted about 11/2023 Code(s): M81.0 - Age-related osteoporosis without current pathological fracture Category: Medical Qualifiers: Osteoporosis type: age-related Presence of current pathological fracture: without current pathological fracture Qualified Code(s): M81.0 - Age-related osteoporosis without current pathological fracture Plan: Severe osteoporosis and history of left wrist fracture. Patient received the 1st dose of Prolia 10/2023. She can not continue with Prolia due to significantly expensive co-pay. She was started on alendronate by her OBGYN. She is tolerating it well. Discussed risks and benefits of Vedantu. Patient will go online and see whether she would qualify for the patient assistance program, if she qualifies, I will start prior authorization for B[place]o (3) High risk medication use: Code(s): Z79.899 - Other technician terminal and repeater (current) drug therapy Category: Medical Plan: Side effects of Enbrel were discussed with the patient in detail including increased risk of infection, demyelinating disease, reactivation of latent TB, possible increased risk of solid and skin tumors. Patient fully aware. Patient has history of basal cell carcinoma that was excised. She gets a yearly skin exam by Dermatology. Advised patient to seek medical care ROULA if patient has an infection and advised patient to stop the medication until the infection is resolved. Plan I spent 27 minutes reviewing patient's chart, evaluating patient, ordering diagnostic workup, counseling patient and documenting in the chart Coding Level of Care Code Est Pt Level 4 (03432) Complex EM visit Add On G2211 Diagnoses Rheumatoid arthritis of multiple sites with negative rheumatoid factor M06.09 Rheumatoid arthritis location: multiple sites Rheumatoid factor presence: without rheumatoid factor Age-related osteoporosis without current pathological fracture M81.0 Osteoporosis type: age-related Presence of current pathological fracture: without current pathological fracture High risk medication use Z79.899
[2024-04-24 11:19] VITALS: BP 134/82; PULSE 98; O2SAT 97; BMI 28.7
== END 2024-04-24 12:06 | disposition home or self-care (01) ==
LOC: HO.RHE 11:06
PROVIDERS: PCP Family Medicine; Visit Provider Student in an Organized Health Care Education/Training Program
DX: M06.09 Rheumatoid arthritis without rheumatoid factor, multiple sites (principal); M81.0 Age-related osteoporosis without current pathological fracture; Z79.899 Other long term (current) drug therapy
CPT/HCPCS: 99214; G2211

== ENCOUNTER → 2024-04-24 11:05 | Outpatient (BNVA) | payer MEDICARE, SELFPAY | PROVIDERS: PCP Family Medicine; Visit Provider Student in an Organized Health Care Education/Training Program | DX: M06.09 Rheumatoid arthritis without rheumatoid factor, multiple sites (principal); M81.0 Age-related osteoporosis without current pathological fracture; Z79.899 Other long term (current) drug therapy | CPT/HCPCS: 99212 ==

== ENCOUNTER 2024-07-16 11:33 | Outpatient (AMB) | payer MEDICARE, SELFPAY ==
--- NOTE | 2024-07-16 11:39 | A.OFFPC_ITS ---
Vital Signs 07/16/24 11:44 Height 5 ft 1 in Weight 146 lb BMI 27.6 BP 118/80 Blood Pressure Location Lt brachial Position Sitting Respiration 14 Pulse 103 H Pulse Source Pulse Oximeter Temp 98.5 F Temp Source Oral Pulse Oximetry (%) 96 Oxygen Delivery Method Room Air Intake Visit Reasons: f/u HLD, chronic conditions Intake Note: f/u for b/p Allergies No Known Allergies Allergy (Verified 07/16/24 11:40) Medication List - Last Reconciled 07/16/24 by Ha Griggs MD alendronate 70 mg PO QWEEK ashwagandha root extract mg PO atorvastatin 80 mg PO DAILY 90 days cwnspulfxz-puldzkwdyurjr-fpud 50-325-40 mg 1 - 2 tabs PO DAILY PRN 30 days cholecalciferol (vitamin D3) 25 mcg PO DAILY ferrous sulfate (FeroSul) 325 mg PO DAILY gabapentin 100 mg PO BEDTIME PRN inulin (Fiber Gummies) grams PO irbesartan 150 mg PO QAM 90 days metoprolol succinate ER 12.5 mg (1/2 x 25 mg) PO BID 90 days multivitamin 1 tab PO DAILY nabumetone 500 mg PO BID PRN tramadol 05. to 1 tab orally daily PRN; [employer] verified. Partial refill upon request. #20 tabs per 30 days. 30 days zolpidem 5 - 10 mg (0.5 - 1 x 10 mg) PO BEDTIME PRN 30 days Tobacco use date assessed: 04/15/24 Dental Screening Dental Screen Date: 04/15/24 HPI f/u HLD, chronic conditions HPI Details 68 y/o female presents to f/u HTN, HLD, chronic conditions. Last LDL cholesterol level was 102. She is on artovastatin 80mg daily. Had increased her metoprolol to 12.5mg b.i.d. last office visit per pt request. BP today 118/80, 103p. HPI Comments History of Present Illness Details Documentation assistance for Ha Griggs MD, was provided by Abelardo Griffin,? Electrical Experimental Mechanic on 07/16/2024 at 12:04 PM EST. I, Dr. Griggs, have read, observed, and verified documentation. ?? [facility] Medical History Screening for colon cancer Breast cancer screening by mammogram Elevated liver enzymes Adult general medical exam Elevated fasting glucose Knee pain History of shingles Laboratory exam ordered as part of routine general medical examination Acute left flank pain Immunization counseling Osteoporosis History of kidney stones Diverticulitis Surgical History History of colostomy reversal H/O hand surgery History of hysterectomy History of tubal ligation History of hernia surgery History of carpal tunnel surgery H/O arthroscopic knee surgery Family History Family/Other Family history of autoimmune disorder Social History Housing: House Patient Tobacco Use Status: Former Tobacco user e-Cigarette/Vaping Use: Never Used Second Hand Smoke Exposure: No service: No Current occupational status: 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 1. Little interest or pleasure in doing things: several days 2. Feeling down, depressed, or hopeless: several days 4. Feeling tired or having little energy: several days 6. Feeling bad about yourself - or that you are a failure or have let yourself or your family down: not at all 8. Moving or speaking so slowly that other people could have noticed. Or the opposite - being so fidgety or restless that you have been moving around a lot more than usual: not at all 9. Thoughts that you would be better off or of hurting yourself in some way: not at all Source: Developed by Drs. Elmo Barahona, Tory Anderson, Derick Sahni and colleagues, with an educational ramirez from [employer]. Thrive Questionnaire Date Thrive assessed: 07/13/24 I am a: Patient What is your living situation today?: I have a steady place to live Within the past 12 months, did the food you bought not last and you didn't have the money to get more?: Never true Within the past 12 months, did you worry whether your food would run out before you got money to buy more?: Never true Do you have trouble paying for medicines?: No Do you have trouble getting transportation to medical appointments?: No Do you have trouble paying your heating and electricity bill?: No Do you have trouble taking care of your child, family member or friend?: No Do you have trouble with day-to-day activities such as bathing, preparing meals, shopping, managing finances, etc.?: No Are you currently unemployed and looking for a job?: No Are you interested in more education?: No Please select the resources that you would like help with: None Currently or been in a relationship where the following occur: No concerns reported THRIVE Score: 0 AUDIT C Alcohol Use Questionnaire (AUDIT-C) 1. How often do you have a drink containing alcohol?: Never Total Score: 0 MILENA-7 AMB Questionnaire MILENA-7 Date MILENA - 7 assessed: 04/15/24 Feeling nervous, anxious, or on edge: 0 = Not at all Not being able to stop or control worryin = Not at all Worrying too much about different things: 1 = Several days Trouble relaxin = Not at all Being so restless that it is hard to sit still: 1 = Several days Becoming easily annoyed or irritable: 1 = Several days Feeling afraid as if something awful might happen: 1 = Several days Total MILENA-7 score (0-4 normal; 5-9 mild; 10-14 moderate; 15-21 severe): 4 Source: Developed by Drs. Elmo Barahona, Tory Anderson, Derick Sahni and colleagues, with an educational ramirez from [employer]. Review of Systems Const Denies chills, Denies fatigue, Denies fever(s), Denies headache(s) and Denies weakness ENT Denies dizziness and Denies headache(s) Card Denies chest pain, Denies lightheadedness, Denies dyspnea and Denies other (Palpitations) Resp Denies cough, Denies dyspnea, Denies wheezing and Denies other ( shortness of breath) Musc Denies numbness and Denies tingling Neuro Denies dizziness, Denies headache(s), Denies numbness, Denies tingling, Denies paresthesias and Denies weakness Psych Denies anxiety and Denies depression Endo Denies fatigue Aller/Immun Denies wheezing Physical exam (Primary Care) Tobacco/Smoking Status: Tobacco use Status Tobacco use date assessed 04/15/24 07/16/24 11:39 Patient Tobacco Use Status Former Tobacco user 07/16/24 11:39 e-Cigarette/Vaping Use Never Used 07/16/24 11:39 Thrive Assessment: Date of Thrive Assessment Date Thrive assessed 07/13/24 07/16/24 11:39 Currently or been in a relationship where the following occur: No concerns reported Const General: no acute distress and well developed Nutritional Appearance: well nourished Orientation/consciousness: patient oriented x3 HENMT Head: Yes normocephalic and Yes atraumatic Eyes General: appearance normal, both eyes and all related structures Pupils: Equal, round and reactive pupils present EOM: EOMs intact bilaterally Resp Effort & Inspection: normal respiratory effort Auscultation: clear to auscultation bilaterally Cardio Rate: regular rate Rhythm: regular rhythm Heart sounds: S1 normal heart sound present, S2 normal heart sound present, no gallops, no murmurs and no rubs Neuro General: patient oriented x3 and gait normal Cranial nerves: Yes Equal, round and reactive pupils present Psych Affect: normal affect Coding Level of Care Code Est Pt Level 4 (31584) Diagnoses Essential hypertension I10 Hyperlipidemia E78.5 Mild dehydration E86.0 Assessment & Plan Assessment & Plan (1) Essential hypertension: Code(s): I10 - Essential (primary) hypertension Category: Medical Plan: Blood?pressure?now?well?controlled?with?increase?in?metoprolol. Goal?is?less?than?140/90 Continue?current?medication?regimen (2) Hyperlipidemia: Code(s): E78.5 - Hyperlipidemia, unspecified Category: Medical Plan: LDL?cholesterol?has?been?mildly?elevated. Had?a?discussion?today?about?diet,?exercise?and?weight?control She?is?already?on?atorvastatin?80?mg?daily She?will?continue?to?work?on?lifestyle?changes She?can?get?her?labs?drawn?prior?to?next?visit?and?we?will?discuss. (3) Mild dehydration: Code(s): E86.0 - Dehydration Category: Medical Plan: Patient?appears?mildly?dehydrated?today.??She?says?she?drinks?only?about?32?oz?o f?water?per?day Encouraged?her?to?try?to?increase?this?by?another?16?oz?day Orders: Orders Comprehensive [place]. Panel Fast Today Z00.00 - Encounter for general adult medical examination without abnormal findings Lipid Panel Today Z00.00 - Encounter for general adult medical examination without abnormal findings
[2024-07-16 11:44] VITALS: BP 118/80; PULSE 103; RESP 14; TEMP 36.9; O2SAT 96; BMI 27.6
--- OUTSIDE RECORDS SUMMARY | 2024-07-16 12:47 | XMS_ITS ---
Author Organization [facility] Address Unknown Problems Problem Status Start Date End Date ENCOUNTER FOR SURGICAL AFTER CARE FOLLOWING SURGERY ON THE DIGESTIVE SYSTEM (Primary) (Z48.815 - ICD-10-CM) ACTIVE 08/29/2019 ACQUIRED ABSENCE OF OTHER SP ECIFIED PARTS OF DIGESTIVE TRACT (Z90.49 - ICD-10-CM) ACTIVE 08/29/2019 FIBROMYALGIA (M79.7 - ICD-10-CM) ACTIVE 08/29/19 20 ULCERATIVE COLITIS, UNSPECIF IED, WITHOUT COMPLICATIONS (K51.90 - ICD-10-CM) ACTIVE 08/29/2019 ESSENTIAL (PRIMARY) HYPERTENSION (I10 - ICD-10-CM) ACT MAUDE 08/29/2019 MUSCLE WEAKNESS (GENERALIZED) (M62.81 - ICD-10-CM) ACT MAUDE 08/29/2019 DIFFICULTY IN WALKING, NOT E LSEWHERE CLASSIFIED (R26.2 - ICD-10-CM) ACTIVE 08/29/2019 OTHER LACK OF COORDINATION (R27.8 - ICD-10-CM) ACTIVE 08/29/2019 ENCOUNTER FOR CHANGE OR ARAVIND PEDRO OF SURGICAL WOUND DRESSING (Z48.01 - ICD-10-CM) ACTIVE 08/29/2019 ENCOUNTER FOR ATTENTION TO COLOSTOMY (Z43.3 - ICD-10-C M) ACTIVE 08/29/2019 PERFORATION OF INTESTINE (NO NTRAUMATIC) (K63.1 - ICD-10-CM) ACTIVE 08/29/2019 MIGRAINE, UNSPECIFIED, INTRA CTABLE, WITHOUT STATUS MIGRAINOSUS (G43.919 - ICD-10-CM) ACTIVE 08/29/2019 UNSPECIFIED OSTEOARTHRITIS, UNSPECIFIED SITE (M19.90 - ICD-10-CM) ACTIVE 08/29/2019 ACUTE EMBOLISM AND THROMBOSI S OF DEEP VEINS OF RIGHT UPPER EXTREMITY (I82.621 - ICD-10-CM) ACTIVE 08/29/2019 Encounters Encounter Performer Performer Role Encounter Diagnoses Location Date Discharge - Discharged to home or self care - [facility] - Private home/apt. with home health services [facility] 08/29/2019 04:25 pm EDT - 09/09/2019 12:00 pm EDT Immunizations Vaccine Date Influenza 07/05/2019 02:03 pm EST Social History
== END 2024-07-16 12:06 | disposition home or self-care (01) ==
PROVIDERS: PCP Family Medicine; Visit Provider Family Medicine
DX: I10 Essential (primary) hypertension (principal); E78.5 Hyperlipidemia, unspecified; E86.0 Dehydration

== ENCOUNTER → 2024-07-16 11:33 | Outpatient (BNVA) | payer MEDICARE, SELFPAY | PROVIDERS: PCP Family Medicine; Visit Provider Family Medicine | DX: I10 Essential (primary) hypertension (principal); E78.5 Hyperlipidemia, unspecified; E86.0 Dehydration | CPT/HCPCS: 99212 ==

== ENCOUNTER 2024-10-03 10:17 | Outpatient (REF) | payer MEDICARE, SELFPAY ==
--- OUTSIDE RECORDS SUMMARY | 2024-10-03 12:14 | XMS_ITS ---
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 Name Role Phone Mary Sanabria Unavailable Unavailable Beulah Vazquez Unavailable Unavailable Gris Morales Unavailable Unavailable Yuliana Spivey Unavailable Unavailable Allergies and adverse reactions No Known Allergies Care Team Name Role Address Phone Organization Dates Beulah Vazquez PCP [address], [address], [facility] (Office): [facility] 08/29/2019 - 09/09/2019 Mary Sanabria Attending Physician [address] [place] [address], [facility] (Office): [facility] 08/29/2019 - 09/09/2019 Gris Morales Attending Physician [address], [address], [facility] (Office): [facility] 08/29/2019 - 09/09/2019 Yuliana Spivey Attending Physician [address] [place] [address], [facility], [facility] (Office): [facility] 08/29/2019 - 09/09/2019 Immunizations Immunization Status Vaccine Details Vaccine Code CodeSystem Boo e Notes Influenza completed Influenza, split virus, trivalent, injectable, contains preservative lotNumber: [id number] expiry: 11/19/2019 Mfg: [employer]i Shayuer Given 0.5 ml Left Deltoid intramuscularly 141 CVX created date: 08/31/2019 administered date: 07/05/2019 Mental Status Section Date Assessment Total Score Description 09/09/2019 BIMS 15 cognitively int act CAM 0 No delirium ind icated PHQ-9 04 minimal depress ion 09/04/2019 BIMS 15 cognitively int act CAM 0 No delirium ind icated PHQ-9 04 minimal depress ion Problems Problem # Description Date of onset Resolved Date Code CodeSystem Concern Status 1 ACQUIRED ABSENCE OF OTHER SPECIFIED PARTS OF DIGESTIVE TRACT [address] active 2 ACUTE EMBOLISM AND THROMBOSIS OF DEEP VEINS OF RIGHT UPPER EXTREMITY [address] active 3 DIFFICULTY IN WALKING, NOT ELSEWHERE CLASSIFIED [address] active 4 ENCOUNTER FOR ATTENTION TO COLOSTOMY [address] active 5 ENCOUNTER FOR CHANGE OR REMOVAL OF SURGICAL WOUND DRESSING [address] active 6 ENCOUNTER FOR SURGICAL AFTERCARE FOLLOWING SURGERY ON THE DIGESTIVE SYSTEM [address] active 7 ESSENTIAL (PRIMARY) HYPERTENSION [address] active 8 FIBROMYALGIA [address] active 9 MIGRAINE, UNSPECIFIED, INTRACTABLE, WITHOUT STATUS MIGRAINOSUS [address] active 10 MUSCLE WEAKNESS (GENERALIZED) [address] active 11 OTHER LACK OF COORDINATION [address] active 12 PERFORATION OF INTESTINE (NONTRAUMATIC) [address] active 13 ULCERATIVE COLITIS, UNSPECIFIED, WITHOUT COMPLICATIONS [address] active 14 UNSPECIFIED OSTEOARTHRITIS, UNSPECIFIED SITE [address] active Reason for Referral No Reasons for Referral Entered Social History Social History Observation Description Start Date End Date Code Code System Current Smoking Status Tobacco smoking consumption unknown 482550222 SNOMED CT Sex Assigned At Female 1955 [address]65-7 [facility] Vital Signs Code Code System Vitals Name Values and Units Timing Information 8310-5 [facility] Body Temperature Value=97.6 Units=?? F 09/09/2019 19367-5 [facility] Pain Level Value=0.0 09/09/2019 11033-2 [facility] O2 % BldC Oximetry Value=98.0 Units= % 09/09/2019 9279-1 [facility] Respiratory Rate Value=18.0 Units=/m in 09/09/2019 8867-4 [facility] Heart rate Value=97.0 Units=/min 8462-4 [facility] Blood Pressure-Diastolic Value=68 Un its=mmHg 09/09/2019 8480-6 [facility] Blood Pressure-Systolic Zmfvk=279 Un its=mmHg 09/09/2019 38861-0 [facility] Weight Sgwfr=359.2 Units=Lbs 8302-2 [facility] Height Value=62.0 Units=Inches 08/29/2019
[2024-10-03 12:36] LABS: Alanine Aminotransferase 42 U/L (0-31); Albumin Level 3.8 g/dL (3.5-5.0); Anion Gap 12 (12-20); Aspartate Amino Transferase 48 U/L (5-31); Bilirubin Total 0.7 mg/dL (0.0-1.0); Blood Urea Nitrogen 18 mg/dL (9-16); Calcium 9.5 mg/dL (8.4-10.2); Carbon Dioxide 28 mmol/L (22-29); Chloride 107 mmol/L (96-108); Cholesterol 140 mg/dL (<200); Estimated Glomerular Filt Rate > 60; Glucose Fasting 134 mg/dL (60-99); HDL Cholesterol 33 mg/dL (>40); LDL Cholesterol Calculated 77 mg/dL (<100); Potassium 3.8 mmol/L (3.3-5.1); Sodium 143 mmol/L (135-145); Total Protein 7.3 g/dL (6.5-8.0); Triglycerides 150 mg/dL (<150)
[2024-10-03 12:42] LABS: Alkaline Phosphatase 93 U/L (39-117)
== END 2024-10-03 10:18 | disposition home or self-care (01) ==
LOC: HO.WFDLDS 10:17
PROVIDERS: Visit Provider Family Medicine
DX: Z00.00 Encounter for general adult medical examination without abnormal findings (principal); C34.90 Malignant neoplasm of unspecified part of unspecified bronchus or lung; K75.81 Nonalcoholic steatohepatitis (NASH); E78.6 Lipoprotein deficiency
CPT/HCPCS: 36415; 80053; 80061

== ENCOUNTER 2024-10-09 11:29 | Outpatient (AMB) | payer MEDICARE, SELFPAY ==
--- NOTE | 2024-10-09 11:36 | MHC.PC.OV ---
Vital Signs 10/09/24 11:38 Height 5 ft 1 in Weight 144 lb BMI 27.2 BP 120/80 Blood Pressure Location Rt brachial Position Sitting Respiration 12 Pulse 97 Pulse Source Pulse Oximeter Temp 98.4 F Temp Source Oral Pulse Oximetry (%) 97 Oxygen Delivery Method Room Air Intake Visit Reasons: f/u HTN, HLD, chronic conditions Intake Note: follow up labs and chronic condition Cnp Required: No Allergies No Known Allergies Allergy (Verified 10/09/24 11:36) Tobacco use date assessed: 04/15/24 Dental Screening Dental Screen Date: 04/15/24 HPI f/u HTN, HLD, chronic conditions HPI Details 68 y/o female presents to f/u HTN, HLD, chronic conditions. Labs drawn 10/03/24. Reviewed labs with pt. Elevated liver enzymes - AST 48, ALT 42. Triglycerides 150, TC 140. LDL 77. HDL low at 33. Blood pressure today 120/80, 97p. She is on metoprolol 12.5mg b.i.d, irbesartan 150mg. Hx of pre-diabetes. A1c today 10/09/24 is 5.8%. [facility] Medical History Screening for colon cancer Breast cancer screening by mammogram Elevated liver enzymes Adult general medical exam Elevated fasting glucose Knee pain History of shingles Laboratory exam ordered as part of routine general medical examination Acute left flank pain Immunization counseling Osteoporosis History of kidney stones Diverticulitis Surgical History History of colostomy reversal H/O hand surgery History of hysterectomy History of tubal ligation History of hernia surgery History of carpal tunnel surgery H/O arthroscopic knee surgery Family History Family/Other Family history of autoimmune disorder Social History Housing: House Patient Tobacco Use Status: Former Tobacco user e-Cigarette/Vaping Use: Never Used Second Hand Smoke Exposure: No service: No Current occupational status: 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 3. Trouble falling or staying asleep, or sleeping too much: not at all 5. Poor appetite or overeating: not at all 7. Trouble concentrating on things, such as reading the newspaper or watching television: not at all Source: Developed by Drs. Elmo Barahona, Tory Anderson, Derick Sahni and colleagues, with an educational ramirez from [employer]. Thrive Questionnaire Date Thrive assessed: 07/13/24 I am a: Patient What is your living situation today?: I have a steady place to live Within the past 12 months, did the food you bought not last and you didn't have the money to get more?: Never true Within the past 12 months, did you worry whether your food would run out before you got money to buy more?: Never true Do you have trouble paying for medicines?: No Do you have trouble getting transportation to medical appointments?: No Do you have trouble paying your heating and electricity bill?: No Do you have trouble taking care of your child, family member or friend?: No Do you have trouble with day-to-day activities such as bathing, preparing meals, shopping, managing finances, etc.?: No Are you currently unemployed and looking for a job?: No Are you interested in more education?: No Please select the resources that you would like help with: None Currently or been in a relationship where the following occur: No concerns reported THRIVE Score: 0 MILENA-7 AMB Questionnaire MILENA-7 Date MILENA - 7 assessed: 04/15/24 Source: Developed by Drs. Elmo Barahona, Tory Anderson, Derick Sahni and colleagues, with an educational ramirez from [employer]. Review of Systems Const Denies chills, Denies fatigue, Denies fever(s), Denies headache(s) and Denies weakness ENT Denies dizziness and Denies headache(s) Card Denies chest pain, Denies lightheadedness, Denies dyspnea and Denies other (Palpitations) Resp Denies cough, Denies dyspnea, Denies wheezing and Denies other ( shortness of breath) Musc Denies numbness and Denies tingling Neuro Denies dizziness, Denies headache(s), Denies numbness, Denies tingling, Denies paresthesias and Denies weakness Psych Denies anxiety and Denies depression Endo Denies fatigue Aller/Immun Denies wheezing Physical exam (Primary Care) Vital Signs: Last Vital Signs Temp 98.4 F 10/09/24 11:38 Pulse 97 10/09/24 11:38 Resp 12 10/09/24 11:38 BP 120/80 10/09/24 11:38 Pulse Ox 97 10/09/24 11:38 Oxygen Delivery Method Room Air 10/09/24 11:38 BMI result Body Mass Index 27.2 Tobacco/Smoking Status: Tobacco use Status Tobacco use date assessed 04/15/24 10/09/24 11:41 Patient Tobacco Use Status Former Tobacco user 10/09/24 11:41 e-Cigarette/Vaping Use Never Used 10/09/24 11:41 Thrive Assessment: Date of Thrive Assessment Date Thrive assessed 07/13/24 10/09/24 11:41 Currently or been in a relationship where the following occur: No concerns reported Const General: no acute distress and well developed Nutritional Appearance: well nourished Orientation/consciousness: patient oriented x3 HENMT Head: Yes normocephalic and Yes atraumatic Eyes General: appearance normal, both eyes and all related structures Pupils: Equal, round and reactive pupils present EOM: EOMs intact bilaterally Resp Effort & Inspection: normal respiratory effort Auscultation: clear to auscultation bilaterally Cardio Rate: regular rate Rhythm: regular rhythm Heart sounds: S1 normal heart sound present, S2 normal heart sound present, no gallops, no murmurs and no rubs Neuro General: patient oriented x3 and gait normal Cranial nerves: Yes Equal, round and reactive pupils present Psych Affect: normal affect Coding Level of Care Code Est Pt Level 4 (80364) Diagnoses Hyperlipidemia E78.5 Essential hypertension I10 Elevated liver enzymes R74.8 Pre-diabetes R73.03 Hernia K46.9 Assessment & Plan Assessment & Plan (1) Hyperlipidemia: Code(s): E78.5 - Hyperlipidemia, unspecified Category: Medical Plan: LDL?cholesterol?controlled?on?current?medication?regimen. HDL?is?too?low.??Encouraged?exercise?as?tolerated (2) Essential hypertension: Code(s): I10 - Essential (primary) hypertension Category: Medical Plan: Blood?pressure?is?controlled.??Goal?is?less?than?140/90 Continue?irbesartan?as?prescribed (3) Elevated liver enzymes: Code(s): R74.8 - Abnormal levels of other serum enzymes Category: Medical Plan: Liver?enzymes?elevated. No?increased?echogenicity?on?prior?ultrasound. 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 Maintain?weight,?hydrate?well,?avoid?excess?Tylenol?or?alcohol We?can?continue?monitor (4) Pre-diabetes: Code(s): R73.03 - Prediabetes Category: Medical Plan: A1c?5.8%.??Stable pre?diabetes. Encouraged?a?diet?lower?in?sugars?and?starches Will?continue?monitor (5) Hernia: Code(s): K46.9 - Unspecified abdominal hernia without obstruction or gangrene Category: Medical Plan: Left?lower?quadrant?palpable?mass?with?impulse?Valsalva. Likely?hernia?of?abdominal?wall?at?site?former?ostomy. Patient?is?hoping?to?avoid?surgery.??Checking?ultrasound. Orders: Orders US abdomen limited Today R19.00 - Intra-abdominal and pelvic swelling, mass and lump, unspecified site
[2024-10-09 11:38] VITALS: BP 120/80; PULSE 97; RESP 12; TEMP 36.9; O2SAT 97; BMI 27.2
== END 2024-10-09 12:11 | disposition home or self-care (01) ==
LOC: HO.HMCFM 11:30
PROVIDERS: PCP Family Medicine; Visit Provider Family Medicine
DX: E78.5 Hyperlipidemia, unspecified (principal); I10 Essential (primary) hypertension; R74.8 Abnormal levels of other serum enzymes; R73.03 Prediabetes; K46.9 Unspecified abdominal hernia without obstruction or gangrene

== ENCOUNTER → 2024-10-09 11:29 | Outpatient (BNVA) | payer MEDICARE, SELFPAY | PROVIDERS: PCP Family Medicine; Visit Provider Family Medicine | DX: E78.5 Hyperlipidemia, unspecified (principal); I10 Essential (primary) hypertension; R74.8 Abnormal levels of other serum enzymes; R73.03 Prediabetes; K46.9 Unspecified abdominal hernia without obstruction or gangrene | CPT/HCPCS: 83036; 99212 ==

== ENCOUNTER 2024-10-10 12:01 | Outpatient (AMB) | payer MEDICARE, SELFPAY ==
--- NOTE | 2024-10-10 12:06 | A.OFFVIS_ITS ---
Vital Signs 10/10/24 12:09 Height 5 ft 1 in Weight 144 lb BMI 27.2 BP 124/81 Blood Pressure Location Lt brachial Position Sitting Pulse 104 H Intake Visit Reasons: f/u CHÁVEZ Transaminitis Intake Note: Samantha presents in the office as a follow up for CHÁVEZ. 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 She states she also has a hernia on the LLQ where her colostomy bag used to be. 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: No Allergies No Known Allergies Allergy (Verified 10/10/24 12:09) HPI HPI f/u CHÁVEZ Transaminitis: Details: Assessment & Plan (1) CHÁVEZ (nonalcoholic steatohepatitis): Code(s): K75.81 - Nonalcoholic steatohepatitis (CHÁVEZ) Category: Medical (2) Transaminitis: Comment: BASELINE LABS 07/06/23 11:40 WBC 4.5 L Hgb 14.6 Hct 42.0 Plt Count 201 Estimated GFR > 60 Total Bilirubin 0.8 AST 36 H ALT 39 H Alkaline Phosphatase 88 C-Reactive Protein 0.17 02/14/23 09:50 Hepatitis A IgM Ab Nonreactive Hep Bs Antigen Negative Hep Bs Antibody NONREACTIVE Hep B Core Total Ab Nonreactive Hepatitis C Ab (EIA) Nonreactive 11/07/23 12:25 Ferritin 201 GGT 21 Alpha Fetoprotein 2.6 TONY Screen POSITIVE A TONY Titer 1:320 H TONY Pattern Nuclear, Homogeneous A Anti-Mitochondrial Ab NEGATIVE Anti-Smooth Muscle Ab <20 HIV 1&2 Ab/P24 Ag 4thGn Nonreactive US ABD WITH ELASTOGRAPHY 09/12/23 (F1-F2) CURRENT LABS US ABD WITH ELASTOGRAPHY 09/12/23 (F1-F2) IMPRESSION: 1. Liver elastography: Measurements are suggestive of compensated advanced chronic liver disease but need further test for confirmation. 2. The gallbladder is surgically absent. Code(s): R74.01 - Elevation of levels of liver transaminase levels Category: Medical Plan We review all the labs and it appears that this is CHÁVEZ. She is educated about slow steady weight loss, the avoidance of alcohol and control blood sugars as this 3 most important factors in controlling her liver health. She is aware that we will monitor her at six-month intervals. Return office visit in 6 months Laboratory Tests 10/03/24 10/09/24 10:18 16:21 Estimated GFR > 60 Hgb A1c (Clinic) 5.8 Total Bilirubin 0.7 AST 48 H ALT 42 H Alkaline Phosphatase 93 TODAY'S VISIT She gained some wt over the hols, she is trying to lose it and maintain her wt. She is also told she is pre diabetic. All of these things c/t her liver health. Her REHAB THERAPIST discovered she has a LLQ hernia, it is where she had a colostomy in the h past, she will be having an US for this soon. she has a hx of 3 past hernias in other area. I will try to get our surveillance ultrasound combined with the ultrasound ordered by her primary care's diagnose for possible left lower quadrant hernia. We review her liver labs and I let her know they have increased mildly. She does not seem to be sure why this is but it might be that she was eating richer food over the holidays. She expresses extreme difficulty losing weight. ROV 6 mos. PFSH Medical History (Updated 10/10/24 @ 15:02 by GORAN Lind) Osteoarthritis Transaminitis Trigger finger, left ring finger Hand pain Bilateral shoulder pain Bilateral hip pain Back pain Foot pain Adult general medical exam Screening for colon cancer Breast cancer screening by mammogram Elevated liver enzymes Elevated fasting glucose Knee pain History of shingles Laboratory exam ordered as part of routine general medical examination Acute left flank pain Immunization counseling Osteoporosis History of kidney stones Diverticulitis Surgical History History of colostomy reversal H/O hand surgery History of hysterectomy History of tubal ligation History of hernia surgery History of carpal tunnel surgery H/O arthroscopic knee surgery Family History Family/Other Family history of autoimmune disorder Social History Housing: House Patient Tobacco Use Status: Former Tobacco user e-Cigarette/Vaping Use: Never Used Second Hand Smoke Exposure: No service: No Current occupational status: retired 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 Current occupational exposures/hazards: No Cognitive needs: No Hearing needs: No Vision needs: No Review of Systems Const Denies fatigue, Denies fever(s), Denies night sweats, Denies poor appetite and Denies weight loss ENT Reports Normal hearing present, Denies dental pain, Denies dysphagia, Denies hearing loss, Denies mouth pain, Denies odynophagia, Denies throat swelling, Denies tongue swelling and Reports other (Dentition adequate) Card Reports no additional complaints Resp Reports no additional complaints GI Details: Denies abdominal pain, Denies melena, Denies bloating, Denies hematochezia, Denies constipation, Denies GI cramping, Denies dysphagia, Denies excessive flatus, Denies early satiety, Denies heartburn, Denies diarrhea, Denies nausea, Denies odynophagia, Denies vomiting and Denies hematemesis Skin/Breast Denies pruritus, Denies lesions, Denies rash and Denies jaundice Neuro Reports Normal hearing present and Denies Abnormal speech present Endo Denies fatigue Aller/Immun Denies throat swelling and Denies tongue swelling Physical Exam Vital Signs: Last Vital Signs Pulse 104 H 10/10/24 12:09 BP 124/81 10/10/24 12:09 BMI result Body Mass Index 27.2 Const General: cooperative, no acute distress, well developed and well groomed Nutritional Appearance: average body habitus and well nourished Orientation/consciousness: oriented to person, oriented to place and oriented to time Limitations: No language barrier HEENT Head: Yes normocephalic and Yes atraumatic Eyes General: appearance normal, both eyes and all related structures Pupils: Equal, round and reactive pupils present Neck Neck: Yes normal visual inspection and Yes no lymphadenopathy Thyroid: Thyroid normal Resp Effort & Inspection: normal respiratory effort and able to speak in complete sentences Auscultation: clear to auscultation bilaterally Cardio Rate: regular rate Rhythm: regular rhythm Heart sounds: Normal, physiologic split S2 sound present Peripheral pulses: radial pulses present and posterior tibial pulses present GI Inspection: No distended, No Abdominal panniculus present and Yes visible herniation Palpation (GI): Soft to palpation, nontender, no guarding, not rigid and No hepatosplenomegaly present Percussion: Yes normal to percussion Auscultation: normal bowel sounds Rectal Exam - Female: deferred Skin General skin exam: no rashes or lesions noted, turgor normal, skin not dry, no jaundice, No spider nevi and no striae Rashes: no rashes Nails: normal Neuro General: oriented to person, oriented to place and oriented to time Cranial nerves: Yes Equal, round and reactive pupils present and Yes Normal hearing present Speech: No Abnormal speech present Extrem General: Yes normal to inspection, No clubbing, No cyanosis and No edema Psych Appearance: grossly normal and well kempt Mental Status: mental status grossly normal Speech and movement: Normal speech and movement present Affect: normal affect Attitude: cooperative Thought process: Normal thought process present and not confabulating Thought content: Normal thought content present Insight: Fair insight present (Psych) Judgement: Fair judgement present (Psych) Assessment & Plan Assessment & Plan (1) CHÁVEZ (nonalcoholic steatohepatitis): Comment: BASELINE LABS 07/06/23 11:40 WBC 4.5 L Hgb 14.6 Hct 42.0 Plt Count 201 Estimated GFR > 60 Total Bilirubin 0.8 AST 36 H ALT 39 H Alkaline Phosphatase 88 C-Reactive Protein 0.17 02/14/23 09:50 Hepatitis A IgM Ab Nonreactive Hep Bs Antigen Negative Hep Bs Antibody NONREACTIVE Hep B Core Total Ab Nonreactive Hepatitis C Ab (EIA) Nonreactive 11/07/23 12:25 Ferritin 201 GGT 21 Alpha Fetoprotein 2.6 TONY Screen POSITIVE A TONY Titer 1:320 H TONY Pattern Nuclear, Homogeneous A Anti-Mitochondrial Ab NEGATIVE Anti-Smooth Muscle Ab <20 HIV 1&2 Ab/P24 Ag 4thGn Nonreactive US ABD WITH ELASTOGRAPHY 09/12/23 (F1-F2) CURRENT LABS 10/04/2503/23/25 10:1816:21 Estimated GFR > 60 Hgb A1c (Clinic) 5.8 Total Bilirubin 0.7 AST 48 H ALT 42 H Alkaline Phosphatase 93 US ABD WITH ELASTOGRAPHY 09/12/23 (F1-F2) IMPRESSION: 1. Liver elastography: Measurements are suggestive of compensated advanced chronic liver disease but need further test for confirmation. 2. The gallbladder is surgically absent. Code(s): K75.81 - Nonalcoholic steatohepatitis (CHÁVEZ) Category: Medical Plan She gained some wt over the hols, she is trying to lose it and maintain her wt. She is also told she is pre diabetic. All of these things c/t her liver health. Her REHAB THERAPIST discovered she has a LLQ hernia, it is where she had a colostomy in the h past, she will be having an US for this soon. she has a hx of 3 past hernias in other area. I will try to get our surveillance ultrasound combined with the ultrasound ordered by her primary care's diagnose for possible left lower quadrant hernia. We review her liver labs and I let her know they have increased mildly. She does not seem to be sure why this is but it might be that she was eating richer food over the holidays. She expresses extreme difficulty losing weight. ROV 6 mos. Orders: Orders US abdomen complete Today K75.81 - Nonalcoholic steatohepatitis (CHÁVEZ) Coding Level of Care Code Est Pt Level 3 (82463) Diagnoses CHÁVEZ (nonalcoholic steatohepatitis) K75.81
[2024-10-10 12:09] VITALS: BP 124/81; PULSE 104; BMI 27.2
== END 2024-10-10 13:00 | disposition home or self-care (01) ==
LOC: HO.HGI 12:02
PROVIDERS: PCP Family Medicine; Visit Provider Nurse Practitioner
DX: K75.81 Nonalcoholic steatohepatitis (NASH) (principal)
CPT/HCPCS: 99213

== ENCOUNTER → 2024-10-10 12:01 | Outpatient (BNVA) | payer MEDICARE, SELFPAY | PROVIDERS: PCP Family Medicine; Visit Provider Nurse Practitioner | DX: K75.81 Nonalcoholic steatohepatitis (NASH) (principal); K46.9 Unspecified abdominal hernia without obstruction or gangrene | CPT/HCPCS: 99212 ==

== ENCOUNTER 2024-10-23 10:53 | Outpatient (AMB) | payer MEDICARE, SELFPAY ==
--- NOTE | 2024-10-23 11:02 | MHC.OFFVIS ---
Vital Signs 10/23/24 11:14 Height 5 ft 1 in Weight 145 lb 8.081 oz BMI 27.5 BP 115/82 Blood Pressure Location Rt brachial Position Sitting Pulse 83 Pulse Source Pulse Oximeter Pulse Oximetry (%) 98 Oxygen Delivery Method Room Air Intake Visit Reasons: RA Intake Note: Patient presents for RA follow up. Allergies No Known Allergies Allergy (Verified 10/23/24 11:11) Medication List - Last Reconciled 10/23/24 by Elisa Verma MD alendronate 70 mg PO QWEEK ashwagandha root extract mg PO atorvastatin 80 mg PO DAILY 90 days gzmzowqkbq-evzmolhyahqoe-xmar 50-325-40 mg 1 - 2 tabs PO DAILY PRN 30 days cholecalciferol (vitamin D3) 25 mcg PO DAILY ferrous sulfate (FeroSul) 325 mg PO DAILY gabapentin 100 mg PO BEDTIME PRN inulin (Fiber Gummies) grams PO irbesartan 150 mg PO QAM 90 days metoprolol succinate ER 12.5 mg (1/2 x 25 mg) PO BID 90 days multivitamin 1 tab PO DAILY nabumetone 500 mg PO BID PRN tramadol 05. to 1 tab orally daily PRN; [employer]Pat verified. Partial refill upon request. #20 tabs per 30 days. 30 days zolpidem 5 - 10 mg (0.5 - 1 x 10 mg) PO BEDTIME PRN 30 days HPI Comments Details: Patient is a 68 y.o. female with HLD, HTN, osteoporosis, and seropositive erosive rheumatoid arthritis here today for follow up Interval History: Last seen 04/24/[address] Padilla. At that time she was following up for her seropositive rheumatoid arthritis on Enbrel 50 mg weekly. She continued to have a lot of joint pains but there was no active synovitis on examination and so the recommendation from Dr. Padilla was to hold the Enbrel for 1 month and monitor her symptoms if feeling worse she should restart the Enbrel if feeling about the same we should monitor her off Enbrel. He was concerned that she may have burned out RA disease and no active disease Stopped her Enbrel and did not notice much of a difference Continues to have polyarticular joint pain dale involving her neck and back Notes that at night she has pain to her outer hip when she is sleeping on it for a prolonged time and it needs to switch to the other side Rheumatologic History: RA seroneg dx 1976 HCQ for some time in the 1990s incomplete records Enbrel 06/2023 Osteoporosis - Alendronate for 6 months in 2017, stopped due to GI upset. - First dose of Prolia 10/2023. Could not continue with Prolia due to high co-pay - Alendronate restarted about 11/2023 Initial history: This is a 67-year-old female who presents for evaluation of multiple joint pain. Patient stated that since 1976 she was diagnosed with rheumatoid arthritis after fluid was drained from her wrist. She has been following up with Rheumatology for many years. Patient is unaware whether she was ever on DMARDs. She cannot remember. Most recent he was evaluated by Dr. Smallwood and was told that she has burned out rheumatoid arthritis and her symptoms are due to osteoarthritis. Patient has had left thumb surgery for osteoarthritis. She states that her left foot toes are turning similar to the right foot, this has been ongoing for the last 6 months. She is having low back pain radiating to her right thigh as well as right groin pain. Patient is taking nabumetone currently. She was intermittently taking 25 mg of tramadol which provides some relief. she does not believe she was evaluated by Pain Management before. She broke her left wrist in 2017 which was treated non operatively. She was then started on alendronate which she took for about 6 months then stopped it due to GI upset. Current Rheumatology Medication(s): [facility] Medical History (Updated 10/10/24 @ 15:02 by GORAN Lind) Osteoarthritis Transaminitis Trigger finger, left ring finger Hand pain Bilateral shoulder pain Bilateral hip pain Back pain Foot pain Adult general medical exam Screening for colon cancer Breast cancer screening by mammogram Elevated liver enzymes Elevated fasting glucose Knee pain History of shingles Laboratory exam ordered as part of routine general medical examination Acute left flank pain Immunization counseling Osteoporosis History of kidney stones Diverticulitis Surgical History History of colostomy reversal H/O hand surgery History of hysterectomy History of tubal ligation History of hernia surgery History of carpal tunnel surgery H/O arthroscopic knee surgery Family History Family/Other Family history of autoimmune disorder Social History Housing: House Patient Tobacco Use Status: Former Tobacco user e-Cigarette/Vaping Use: Never Used Second Hand Smoke Exposure: No service: No Current occupational status: retired 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 Current occupational exposures/hazards: No Cognitive needs: No Hearing needs: No Vision needs: No Review of Systems Const Details: Review of Systems Constitutional: Denies fever, chills, weight loss ENT: Denies vision changes, eye pain or eye redness, dental caries, dry mouth GI: Denies nausea, vomiting, diarrhea, abdominal pain, change in BM Pulm: Denies SOB, STILL, hemoptysis, wheezing Cards: Denies chest pain, palpitations Skin: Denies Raynaud's, rash, nail changes, photosensitivity, 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 Well appearing and in no apparent painful distress HEENT Conjunctiva and sclera clear. ?Pupils equal round and reactive to light. ?No lymphadenopathy. ? CHEST/RESPIRATORY SYSTEM Normal respiratory effort and able to speak in complete sentences. ?Clear to auscultation bilaterally. ?No crackles, rales, rhonchi, wheezes heard. CARDIAC SYSTEM Regular rate and rhythm. ?S1 and S2 heard no murmurs. ?Radial pulses intact bilaterally MSK Hands: ?Able to make a fist. No synovitis noted to the MCPs, PIPs or DIPs. ?No tenderness to palpation of these joints. Prominent synovial hypertrophy to bilateral MCPs without any tenderness to palpation reducible swan-neck and boutonniere deformities noted to several fingers Wrists: Decreased range of motion to bilateral wrists. No tenderness to palpation. Surgical scars noted to both wrists. Elbows: Full range of motion without pain. No tenderness, weakness, swelling, increased warmth or erythema. Shoulders: Full range of active range of motion without pain. No tenderness, weakness, swelling, increased warmth or erythema. Knees: ?Full range of motion. ?No tenderness, swelling, increased warmth or erythema.?No effusion or crepitations Ankles: Full range of motion. ?No tenderness, swelling, increased warmth or erythema.? Feet: ?Patient with hammertoe deformities bilaterally Tender points:?No tenderness to palpation of the bilateral trapezius, supraspinatus, greater trochanters, anterior costochondral junctions, bilateral gluteal areas, bilateral suboccipital muscle insertions SKIN Skin intact without rashes. Results Reviewed Results Reviewed: Laboratory Tests 01/12/24 04/15/24 10/03/24 15:24 13:03 10:18 WBC 5.3 RBC 4.19 L Hgb 13.4 Hct 38.6 Plt Count 212 ESR 11 Sodium 143 Potassium 3.8 Chloride 107 Carbon Dioxide 28 BUN 18 H Creatinine 0.66 AST 48 H ALT 42 H Alkaline Phosphatase 93 C-Reactive Protein 0.14 25-OH Vitamin D Total 44 Infectious serologies 02/14/23 09:50 Hepatitis A IgM Ab Nonreactive Hep Bs Antigen Negative Hep Bs Antibody NONREACTIVE Hep B Core Total Ab Nonreactive Hepatitis C Ab (EIA) Nonreactive TB Test (T-Spot) Com Negative Assessment & Plan Assessment & Plan (1) Rheumatoid arthritis: Comment: seroneg dx 1976 HCQ for some time in the incomplete records Enbrel 06/2023 Code(s): M06.9 - Rheumatoid arthritis, unspecified Category: Medical Qualifiers: Rheumatoid arthritis location: multiple sites Rheumatoid factor presence: without rheumatoid factor Qualified Code(s): M06.09 - Rheumatoid arthritis without rheumatoid factor, multiple sites Plan: #Seronegative RA Patient is a 68-year-old female with seronegative rheumatoid arthritis here today for follow up. Patient was stopped from Enbrel due to likely burn out disease of her rheumatoid arthritis. Since stopping the Enbrel there has been no change in her pain. I agree with the previous provider that this patient likely has burn out disease as despite being off the Enbrel since April of last year today she does not have any evidence of synovitis on examination. I think it is reasonable for us to monitor her off treatment. I recommended topical diclofenac and using paraffin wax bath to help with her osteoarthritic pains in her bilateral hands. Plan - Monitor off DMARDs - Topical diclofenac 1% for bilateral hands - Parafin wax baths - Labs today: CBC, CMP, ESR, CRP - RTC 6 months or sooner (2) Osteoporosis: Comment: DEXA 08/2023 L-spine T-score -0.9 LEFT FEMUR, NECK: T-score -4.1 LEFT FEMUR, TOTAL: T-score -4.4 Left wrist fracture 2017. Alendronate for 6 months in 2017, stopped due to GI upset. First dose of Prolia 10/2023. Could not continue with Prolia due to high co-pay Alendronate restarted about 11/2023 Code(s): M81.0 - Age-related osteoporosis without current pathological fracture Category: Medical Qualifiers: Osteoporosis type: age-related Presence of current pathological fracture: without current pathological fracture Qualified Code(s): M81.0 - Age-related osteoporosis without current pathological fracture Plan: #Osteoporosis Patient with severe osteoporosis currently on alendronate therapy due to co-pay issues with Prolia Ideally she should be on evenity but due to insurance issues we will continue alendronate and re check DEXA in 2025 Plan - Continue alendronate (prescribed by other physician) - Ensure vit D supplementation Plan I spent 30 minutes reviewing the record and labs, taking a history, examining the patient, discussing the treatment plan, ordering diagnostic work up and documenting in the medical record Orders: Orders Complete Blood Count Auto Diff Today M06.09 - Rheumatoid arthritis without rheumatoid factor, multiple sites Comprehensive Met. Panel Today M06.09 - Rheumatoid arthritis without rheumatoid factor, multiple sites C Reactive Protein Today M06.09 - Rheumatoid arthritis without rheumatoid factor, multiple sites Erythrocyte Sedimentation Rate Today M06.09 - Rheumatoid arthritis without rheumatoid factor, multiple sites Coding Level of Care Code Est Pt Level 4 (30097) Diagnoses Rheumatoid arthritis of multiple sites with negative rheumatoid factor M06.09 Rheumatoid arthritis location: multiple sites Rheumatoid factor presence: without rheumatoid factor Age-related osteoporosis without current pathological fracture M81.0 Osteoporosis type: age-related Presence of current pathological fracture: without current pathological fracture
[2024-10-23 11:14] VITALS: BP 115/82; PULSE 83; O2SAT 98; BMI 27.5
== END 2024-10-23 11:42 | disposition home or self-care (01) ==
LOC: HO.RHE 10:53
PROVIDERS: PCP Family Medicine; Visit Provider Student in an Organized Health Care Education/Training Program
DX: M06.09 Rheumatoid arthritis without rheumatoid factor, multiple sites (principal); M81.0 Age-related osteoporosis without current pathological fracture
CPT/HCPCS: 99214

== ENCOUNTER → 2024-10-23 10:53 | Outpatient (BNVA) | payer MEDICARE, SELFPAY | PROVIDERS: PCP Family Medicine; Visit Provider Student in an Organized Health Care Education/Training Program | DX: M06.09 Rheumatoid arthritis without rheumatoid factor, multiple sites (principal); M81.0 Age-related osteoporosis without current pathological fracture | CPT/HCPCS: 99212 ==

== ENCOUNTER 2024-11-21 12:02 | Outpatient (REF) | payer MEDICARE, SELFPAY ==
--- NOTE | ~2024-11-21 | US_ITS ---
CLINICAL HISTORY: K75.81 - Nonalcoholic steatohepatitis (CHÁVEZ) --- Additional Notes or Special Instru ctions: ok to combine with order by Dr. Griggs for her ? LLQ hernia if possible US abdomen complete. COMPARISON: None Technique: Real time sonographic imaging, including color-flow imaging, was performed by the html developer. Multiple passenger representative static images were saved for review. FINDINGS: Atherosclerotic plaque present along the nonaneurysmal abdominal aorta causing areas of greater than 50 percent grayscale stenosis. Visualized portions of the IVC are unremarkable. The visualized portions of the pancreas appear normal. The liver has mildly heterogeneous echotexture. The main portal vein is antegrade. Liver, right lobe size: 13.4 cm, normal. Status post cholecystectomy Common bile duct: 1.0 cm, within normal limits given cholecystectomy. No choledocholithiasis identified. Right kidney: Cortical medullary differentiation is maintained. Poorly visualized lesion of the inferior pole of the right kidney measuring 1.5 x 0.8 x 1.2 cm. No definite increased acoustic enhancement. Lesion appearance isoechoic to the adjacent renal parenchyma. No hydronephrosis. Right kidney length: 9.7 cm Left kidney: Cortical medullary differentiation is maintained. No calculus or focal parenchymal abnormality identified. No hydronephrosis. Left kidney length: 9.7 cm The spleen has normal echogenicity. Splenic length: 14.1 cm, enlarged. No free intraperitoneal fluid identified. IMPRESSION: 1. Mildly heterogeneous echotexture of the liver. No hepatic lesion identified. 2. Splenomegaly. 3. Exophytic lesion along the inferior pole of the right kidney measuring up to 1.5 cm may represent a renal cyst although this is poorly characterized on current imaging. Recommend comparison with prior imaging if available. If none available, recommend repeat renal ultrasound or renal protocol CT or MR for further characterization. This document has been electronically signed by: Yonny Koroma MD on 11/21/2024 15:41:53
--- NOTE | ~2024-11-21 | US_ITS ---
CLINICAL HISTORY: R19.00 - Intra-abdominal and pelvic swelling, mass and lump, unspecified... --- Add itional Notes or Special Instructions: LLQ Abd wall mass at site of former ostomy. r o hernia Ultrasound of the soft tissues along the anterior pelvis COMPARISON: None FINDINGS: Dedicated ultrasound imaging was performed of the region of concern along the left lower quadrant/pelvis. In the region of concern there is hernia defect within the anterior abdominal wall with fascial opening measuring approximately 1.6 cm. Hernia sac measures up to 3.7 cm. No definite bowel wall signature. No foreign body or fluid collection. IMPRESSION: 1. Ventral pelvic wall fat containing hernia in the left lower quadrant with fascial defect measuring 1.6 cm. No definite bowel involvement. This document has been electronically signed by: Yonny Koroma MD on 11/21/2024 15:12:02
== END 2024-11-21 12:03 | disposition home or self-care (01) ==
LOC: HO.US 12:02
PROVIDERS: PCP Family Medicine; Visit Provider Nurse Practitioner
DX: K75.81 Nonalcoholic steatohepatitis (NASH) (principal)
CPT/HCPCS: 76700; 76857

== ENCOUNTER → 2024-11-21 12:11 | Outpatient (BNV) | payer MEDICARE, SELFPAY | PROVIDERS: PCP Family Medicine; Visit Provider Radiology Diagnostic Radiology | DX: N28.89 Other specified disorders of kidney and ureter (principal); R16.1 Splenomegaly, not elsewhere classified; K40.90 Unilateral inguinal hernia, without obstruction or gangrene, not specified as recurrent | CPT/HCPCS: 76700; 76857 ==

== ENCOUNTER 2024-12-19 11:56 | Outpatient (AMB) | payer MEDICARE, SELFPAY ==
--- NOTE | 2024-12-19 12:01 | A.OFFPC_ITS ---
Vital Signs 12/19/24 12:11 Height 5 ft 1.25 in Weight 143 lb BMI 26.8 BP 118/88 Blood Pressure Location Rt brachial Position Sitting Respiration 13 Pulse 96 Pulse Source Pulse Oximeter Temp 99.6 F Temp Source Temporal Artery Scan Pulse Oximetry (%) 96 Oxygen Delivery Method Room Air Intake Visit Reasons: preop eye catract Intake Note: Samantha presents in the office today for a pre-op for cataract surgery. Allergies mold Allergy (Verified 12/19/24 12:08) cONGESTION Dirt Allergy (Uncoded 12/19/24 12:08) Congestion Tobacco use date assessed: 12/19/24 Dental Screening Dental Screen Date: 12/19/24 Did you have a dental visit in the last 12 months?: Yes Did you have a dental problem in the last 6 months where you did not have access to dental care?: No Was dental information given to patient?: Patient has dentist HPI HPI Comments History of Present Illness Details 68 year old female with pmhx of tachycar hesham, CHÁVEZ, prediabetes, OA, RA, HTN, HLD presents for a pre-op exam. She is having cataract removal 12/25/24 and 01/06/[address] Jordan. Denies recent infections. Denies history of respiratory disease. Denies prior difficulty with anesthesia. Denies history of hematological disorder. She is not diabetic. She is a nonsmoker. She noticed tenderness and swelling of the back of the left hand on Monday this week. She remembers smashing her hand on something, but she doesn't know exactly when or what. Pain is moderate when she touches the area. Ice helps. No numbness, tingling, redness, fevers or chills. She is on Nabumetone. No anticoagulation/antiplatelet meds. HTN: BP 118/88 today. HR 96. ROS: Constitutional: No unexplained weight loss, fever, chills, fatigue or night sweats. Eyes: No vision changes, blurry vision, double vision, eye pain, eye redness, eye discharge. ENT: No hearing loss, sneezing, congestion, runny nose or sore throat. Respiratory: No shortness of breath, cough or sputum production. Cardiovascular: No chest pain, chest pressure or chest discomfort. No palpitations or pedal edema. Gastrointestinal: No anorexia, nausea, vomiting or diarrhea. No abdominal pain or blood in stool. Genitourinary: No dysuria, hematuria, urinary frequency. Neurologic: No headache, dizziness, syncope Musculoskeletal: see HPI Hematologic/Lymphatics: No bleeding Skin: No redness, wounds or bruising Physical exam: Constitutional: Alert, in no distress. Eyes: Pupils are equal, round and reactive to light. Extraocular muscles intact. Ear, Nose and Throat: Canals clear. TMs normal. Normal nasal mucosa. No nasal discharge. No oral lesions. Neck: Supple, Full range of motion. No lymphadenopathy. Respiratory: Clear to auscultation. Cardiovascular: S1 S2 regular. No murmurs. Gastrointestinal: Abdomen soft, non-tender, non-distended. Normal bowel sounds. No palpable masses. Neurologic: No focal neurological deficits Musculoskeletal: Tender area with fluctuant swelling on the back of the left wrist. No erythema, ecchymosis, red streaks or callor. Extremities: Warm and well perfused. Intact radial pulses. [facility] Medical History (Updated 12/19/24 @ 22:05 by DAYAMI Hidalgo) Pre-op evaluation Swelling of left hand Osteoarthritis Transaminitis Trigger finger, left ring finger Hand pain Bilateral shoulder pain Bilateral hip pain Back pain Foot pain Adult general medical exam Screening for colon cancer Breast cancer screening by mammogram Elevated liver enzymes Elevated fasting glucose Knee pain History of shingles Laboratory exam ordered as part of routine general medical examination Acute left flank pain Immunization counseling Osteoporosis History of kidney stones Diverticulitis Surgical History History of colostomy reversal H/O hand surgery History of hysterectomy History of tubal ligation History of hernia surgery History of carpal tunnel surgery H/O arthroscopic knee surgery Family History (Updated 12/19/24 @ 12:11 by Lesley Martinez MA) Family/Other Family history of autoimmune disorder Social History (Updated 12/19/24 @ 12:11 by Lesley Martinez MA) Housing: House Alcohol intake: never Patient Tobacco Use Status: Former Tobacco user e-Cigarette/Vaping Use: Never Used Second Hand Smoke Exposure: No Substance Use Type: Marijuana service: No Current occupational status: retired 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 Current occupational exposures/hazards: No Cognitive needs: No Hearing needs: No Vision needs: No Questionnaire Thrive Questionnaire Date Thrive assessed: 07/13/24 I am a: Patient What is your living situation today?: I have a steady place to live Within the past 12 months, did the food you bought not last and you didn't have the money to get more?: Never true Within the past 12 months, did you worry whether your food would run out before you got money to buy more?: Never true Do you have trouble paying for medicines?: No Do you have trouble getting transportation to medical appointments?: No Do you have trouble paying your heating and electricity bill?: No Do you have trouble taking care of your child, family member or friend?: No Do you have trouble with day-to-day activities such as bathing, preparing meals, shopping, managing finances, etc.?: No Are you currently unemployed and looking for a job?: No Are you interested in more education?: No Please select the resources that you would like help with: None Currently or been in a relationship where the following occur: No concerns reported THRIVE Score: 0 MILENA-7 AMB Questionnaire MILENA-7 Date MILENA - 7 assessed: 04/15/24 Source: Developed by Drs. Elmo Barahona, Tory Anderson, Derick Sahni and colleagues, with an educational ramirez from [employer]. Physical exam (Primary Care) Vital Signs: Last Vital Signs Temp 99.6 F 12/19/24 12:11 Pulse 96 12/19/24 12:11 Resp 13 12/19/24 12:11 BP 118/88 12/19/24 12:11 Pulse Ox 96 12/19/24 12:11 Oxygen Delivery Method Room Air 12/19/24 12:11 BMI result Body Mass Index 26.8 Tobacco/Smoking Status: Tobacco use Status Tobacco use date assessed 12/19/24 12/19/24 12:16 Patient Tobacco Use Status Former Tobacco user 12/19/24 12:11 e-Cigarette/Vaping Use Never Used 12/19/24 12:11 Thrive Assessment: Date of Thrive Assessment Date Thrive assessed 07/13/24 12/19/24 12:02 Currently or been in a relationship where the following occur: No concerns reported Office Procedures EKG Details: EKG shows normal sinus rhythm, low-voltage QRS, inferior infarct age undetermined, 89 beats per minute 39599-[id number], Complete Coding Level of Care Code Est Pt Level 4 (11924) Complex EM visit Add On G2211 Diagnoses Pre-op evaluation Z01.818 Swelling of left hand M79.89 CPT Codes EKG - CPT: 98406-Kjmnziexsctflxfet, Complete ([id number]) Assessment & Plan Assessment & Plan (1) Pre-op evaluation: Code(s): Z01.818 - Encounter for other preprocedural examination Category: Medical (2) Swelling of left hand: Code(s): M79.89 - Other specified soft tissue disorders Category: Medical Plan 68 year old female with METS 4-10 with average risk and no contraindications to proceeding with catact surgery. She has already been instructed by Dr. Jordan's office to hold her medications the day of sugery with the exception of her beta alanna. Pre-op note, EKG and labs will be faxed to Dr. Jordan. Patient will have x-ray of the left hand for evaluation of post traumatic swelling and pain. Continue to ice. Call for redness, warmth, fevers or chills. Orders: Orders AMB EKG-In Office Today Z01.818 - Encounter for other preprocedural examination Basic Metabolic Panel Today Z01.818 - Encounter for other preprocedural examination PT, INR - Anti Coag Clinic Today Z.818 - Encounter for other preprocedural examination XR hand LT min 3V Today M79.642 - Pain in left hand, M79.89 - Other specified soft tissue disorders, S69.90XA - Unspecified injury of unspecified wrist, hand and finger(s), initial encounter Complete Blood Count no Diff Today Z01.818 - Encounter for other preprocedural examination
[2024-12-19 12:11] VITALS: BP 118/88; PULSE 96; RESP 13; TEMP 37.6; O2SAT 96; BMI 26.8
== END 2024-12-19 12:58 | disposition home or self-care (01) ==
LOC: HO.HMCFM 11:56
PROVIDERS: PCP Family Medicine; Visit Provider Physician Assistant Medical
DX: Z01.818 Encounter for other preprocedural examination (principal); M79.89 Other specified soft tissue disorders

== ENCOUNTER 2024-12-19 12:52 | Outpatient (REF) | payer MEDICARE, SELFPAY ==
[2024-12-19 15:08] LABS: Hematocrit 39.1 % (37.0-47.0); Hemoglobin 13.4 g/dl (12.0-16.0); Mean Corpuscular HGB Conc 34.3 g/dl (31.0-35.0); Mean Corpuscular Hemoglobin 31.8 pg (27.0-33.0); Mean Corpuscular Volume 92.7 fL (80.0-98.0); NRBC Abs Auto 0.000 X10*3/uL (0.0-0.012); NRBC Pct Auto 0.0 /100WBC (0.0-0.2); Platelet Count 233 X10*3/uL (160-400); Red Blood Count 4.22 X10*6/uL (4.20-5.50); White Blood Count 6.8 X10*3/uL (4.8-10.8)
[2024-12-19 17:52] LABS: Anion Gap 13 (12-20); Blood Urea Nitrogen 17 mg/dL (9-16); Calcium 8.7 mg/dL (8.4-10.2); Carbon Dioxide 24 mmol/L (22-29); Chloride 107 mmol/L (96-108); Estimated Glomerular Filt Rate > 60; Potassium 3.6 mmol/L (3.3-5.1); Sodium 140 mmol/L (135-145)
== END 2024-12-19 12:53 | disposition home or self-care (01) ==
LOC: HO.WFDLDS 12:52
PROVIDERS: Visit Provider Physician Assistant Medical
DX: Z01.818 Encounter for other preprocedural examination (principal); M79.89 Other specified soft tissue disorders; H26.9 Unspecified cataract; I10 Essential (primary) hypertension; E78.5 Hyperlipidemia, unspecified; R73.03 Prediabetes
CPT/HCPCS: 36415; 80048; 85027; 93005; 99212

== ENCOUNTER 2025-01-13 11:29 | Outpatient (AMB) | payer MEDICARE, SELFPAY ==
--- NOTE | 2025-01-13 11:37 | MHC.PC.OV ---
Vital Signs 01/13/25 11:52 Height 5 ft 1.25 in Weight 140 lb BMI 26.2 BP 120/70 Blood Pressure Location Rt brachial Position Sitting Respiration 16 Pulse 82 Pulse Source Pulse Oximeter Temp 98.5 F Temp Source Oral Pulse Oximetry (%) 98 Oxygen Delivery Method Room Air Intake Visit Reasons: f/u HTN, pre-diabetes Intake Note: patient is scheduled to follow up for htn and pre-dm Supervisor Properties Required: No Allergies mold Allergy (Verified 01/13/25 11:51) cONGESTION Dirt Allergy (Uncoded 12/19/24 12:08) Congestion Medication List - Last Reconciled 01/13/25 by Ha Griggs MD alendronate 70 mg PO QWEEK ashwagandha root extract mg PO atorvastatin 80 mg PO DAILY 90 days rpxggbaxaa-hmizzxfbbgkbq-ewol 50-325-40 mg 1 - 2 tabs PO DAILY PRN 30 days cholecalciferol (vitamin D3) 25 mcg PO DAILY ferrous sulfate (FeroSul) 325 mg PO DAILY inulin (Fiber Gummies) grams PO irbesartan 150 mg PO QAM 90 days metoprolol succinate ER 25 mg PO DAILY multivitamin 1 tab PO DAILY nabumetone 500 mg PO BID PRN tramadol 05. to 1 tab orally daily PRN; [employer] verified. Partial refill upon request. #20 tabs per 30 days. 30 days zolpidem 5 - 10 mg (0.5 - 1 x 10 mg) PO BEDTIME PRN 30 days Tobacco use date assessed: 12/19/24 Dental Screening Dental Screen Date: 12/19/24 HPI f/u HTN, pre-diabetes HPI Details 69 y/o female presents to f/u HTN, prediabetes. Blood pressure today 120/70, 82p. She is on irbesartan 150mg, metoprolol 25mg daily. Pt notes she has been eating better. Last A1c 10/09/24 5.8%. A1c stable at 5.4%. Reports tremor/ buzzing sensation . Reports significant stressors. Hx of anxiety/depression. Decllines a therapist today. [facility] Medical History (Updated 01/13/25 @ 12:16 by Abelardo Griffin) Pre-op evaluation Swelling of left hand Osteoarthritis Transaminitis Trigger finger, left ring finger Hand pain Bilateral shoulder pain Bilateral hip pain Back pain Foot pain Adult general medical exam Screening for colon cancer Breast cancer screening by mammogram Elevated liver enzymes Elevated fasting glucose Knee pain History of shingles Laboratory exam ordered as part of routine general medical examination Acute left flank pain Immunization counseling Osteoporosis History of kidney stones Diverticulitis Surgical History History of colostomy reversal H/O hand surgery History of hysterectomy History of tubal ligation History of hernia surgery History of carpal tunnel surgery H/O arthroscopic knee surgery Family History (Updated 12/19/24 @ 12:11 by Lesley Martinez MA) Family/Other Family history of autoimmune disorder Social History (Updated 12/19/24 @ 12:11 by Lesley Martinez MA) Housing: House Alcohol intake: never Patient Tobacco Use Status: Former Tobacco user e-Cigarette/Vaping Use: Never Used Second Hand Smoke Exposure: No Substance Use Type: Marijuana service: No Current occupational status: retired 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 Current occupational exposures/hazards: No Cognitive needs: No Hearing needs: No Vision needs: No Questionnaire Thrive Questionnaire Date Thrive assessed: 07/13/24 I am a: Patient What is your living situation today?: I have a steady place to live Within the past 12 months, did the food you bought not last and you didn't have the money to get more?: Never true Within the past 12 months, did you worry whether your food would run out before you got money to buy more?: Never true Do you have trouble paying for medicines?: No Do you have trouble getting transportation to medical appointments?: No Do you have trouble paying your heating and electricity bill?: No Do you have trouble taking care of your child, family member or friend?: No Do you have trouble with day-to-day activities such as bathing, preparing meals, shopping, managing finances, etc.?: No Are you currently unemployed and looking for a job?: No Are you interested in more education?: No Please select the resources that you would like help with: None Currently or been in a relationship where the following occur: No concerns reported THRIVE Score: 0 MILENA-7 AMB Questionnaire MILENA-7 Date MILENA - 7 assessed: 04/15/24 Source: Developed by Drs. Elmo Barahona, Tory B.W. Derick Anderson and colleagues, with an educational ramirez from [employer]. Review of Systems Const Denies chills, Denies fatigue, Denies fever(s), Denies headache(s) and Denies weakness ENT Denies dizziness and Denies headache(s) Card Denies dyspnea Resp Denies cough, Denies dyspnea, Denies wheezing and Denies other (shortness of breath) Musc Denies numbness and Denies tingling Neuro Denies dizziness, Denies headache(s), Denies numbness, Denies tingling and Denies weakness Psych Reports anxiety and Denies depression Endo Denies fatigue Aller/Immun Denies wheezing Physical exam (Primary Care) Vital Signs: Last Vital Signs Temp 98.5 F 01/13/25 11:52 Pulse 82 01/13/25 11:52 Resp 16 01/13/25 11:52 BP 120/70 01/13/25 11:52 Pulse Ox 98 01/13/25 11:52 Oxygen Delivery Method Room Air 01/13/25 11:52 BMI result Body Mass Index 26.2 Tobacco/Smoking Status: Tobacco use Status Tobacco use date assessed 12/19/24 01/13/25 11:38 Patient Tobacco Use Status Former Tobacco user 01/13/25 11:38 e-Cigarette/Vaping Use Never Used 01/13/25 11:38 Thrive Assessment: Date of Thrive Assessment Date Thrive assessed 07/13/24 01/13/25 11:38 Currently or been in a relationship where the following occur: No concerns reported Const General: well developed; No acute distress Nutritional Appearance: well nourished Orientation/consciousness: patient oriented x3 [facility]: Yes normocephalic and Yes atraumatic Eyes General: appearance normal, both eyes and all related structures Pupils: Equal, round and reactive pupils present EOM: EOMs intact bilaterally Resp Effort & Inspection: normal respiratory effort Auscultation: clear to auscultation bilaterally Cardio Rate: regular rate Rhythm: regular rhythm Heart sounds: S1 normal heart sound present, S2 normal heart sound present, no gallops, no murmurs and no rubs Neuro General: patient oriented x3 and gait normal Cranial nerves: Yes Equal, round and reactive pupils present Psych Affect: normal affect Coding Level of Care Code Est Pt Level 3 (35436) Diagnoses Essential hypertension I10 Pre-diabetes R73.03 Tremor R25.1 Anxiety F41.9 Assessment & Plan Assessment & Plan (1) Essential hypertension: Code(s): I10 - Essential (primary) hypertension Category: Medical Plan: Blood pressure is controlled. Goal is less than 140/90 Continue current medications (2) Pre-diabetes: Code(s): R73.03 - Prediabetes Category: Medical Plan: A1c is stable. 5.4% today. Will continue to monitor periodically (3) Tremor: Code(s): R25.1 - Tremor, unspecified Category: Medical Plan: Tremor or ?buzzing sensation? Unclear cause No obvious tremor on exam today Will check labs Patient will watch for any triggers May be secondary to stress/anxiety. See below (4) Anxiety: Code(s): F41.9 - Anxiety disorder, unspecified Category: Medical Plan: History of anxiety and depression after the of her and she has had a therapist the past. She notes significant stressors She declines a therapist at this time but she says she will let know if she changes her. Orders: Orders Comprehensive [place]. Panel Fast Today Z00.00 - Encounter for general adult medical examination without abnormal findings Lipid Panel Today Z00.00 - Encounter for general adult medical examination without abnormal findings Microalbumin, Random (w Creat) Today I10 - Essential (primary) hypertension TSH reflex Free T4 Today Z00.00 - Encounter for general adult medical examination without abnormal findings Complete Blood Count Auto Diff Today Z00.00 - Encounter for general adult medical examination without abnormal findings UA CC w/rflx Micro + Cult Today Z00.00 - Encounter for general adult medical examination without abnormal findings Vitamin B12 and Folate Today E53.8 - Deficiency of other specified B group vitamins Vitamin D 25-OH Total Today E55.9 - Vitamin D deficiency, unspecified
[2025-01-13 11:52] VITALS: BP 120/70; PULSE 82; RESP 16; TEMP 36.9; O2SAT 98; BMI 26.2
== END 2025-01-13 12:16 | disposition home or self-care (01) ==
LOC: HO.HMCFM 11:30
PROVIDERS: PCP Family Medicine; Visit Provider Family Medicine
DX: I10 Essential (primary) hypertension (principal); R73.03 Prediabetes; R25.1 Tremor, unspecified; F41.9 Anxiety disorder, unspecified

== ENCOUNTER → 2025-01-13 11:29 | Outpatient (BNVA) | payer MEDICARE, SELFPAY | PROVIDERS: PCP Family Medicine; Visit Provider Family Medicine | DX: I10 Essential (primary) hypertension (principal); R73.03 Prediabetes; R25.1 Tremor, unspecified; F41.9 Anxiety disorder, unspecified | CPT/HCPCS: 99212 ==

== ENCOUNTER 2025-01-22 10:38 | Outpatient (AMB) | payer MEDICARE, SELFPAY ==
--- NOTE | 2025-01-22 10:44 | A.OFFVIS_ITS ---
Vital Signs 01/22/25 10:52 Height 5 ft 1.25 in Weight 144 lb BMI 27.0 BP 172/80 H Blood Pressure Location Rt brachial Position Sitting Pulse 89 Intake Visit Reasons: hernia Intake Note: Patient referred by pcp Dr. Griggs for evaluation and treatment of abdominal hernia. Patient c/o: left abdomen bulge. Reports hx of colostomy in same area. Pelvis US: 11-21-2024 Language Path Required: No Accompanied by: Self / Same As Patient Allergies mold Allergy (Verified 01/22/25 10:50) cONGESTION Dirt Allergy (Uncoded 01/22/25 10:50) Congestion HPI HPI hernia: Details: [age] year old female referred for an incisional hernia. She had a laparotomy and colostomy for what she described as a perforated diverticulitis about 5 years ago in [place]. She says that her colostomy was eventually reversed about 8 months later She has noticed this lump on the area of her colostomy for a few years now. She was following her [facility] operations consultant as well as primary care physician recently and she was told that she had an hernia on the old colostomy site. She was therefore referred to me. She denies significant discomfort. She denies GI complaints. She says that she has had hernias repaired in the past on the area of her C- section as well as on the right groin. [facility] Medical History Incisional hernia Pre-op evaluation Swelling of left hand Osteoarthritis Transaminitis Trigger finger, left ring finger Hand pain Bilateral shoulder pain Bilateral hip pain Back pain Foot pain Adult general medical exam Screening for colon cancer Breast cancer screening by mammogram Elevated liver enzymes Elevated fasting glucose Knee pain History of shingles Laboratory exam ordered as part of routine general medical examination Acute left flank pain Immunization counseling Osteoporosis History of kidney stones Diverticulitis Surgical History History of colostomy reversal H/O hand surgery History of hysterectomy History of tubal ligation History of hernia surgery History of carpal tunnel surgery H/O arthroscopic knee surgery Family History Family/Other Family history of autoimmune disorder Social History Housing: House Alcohol intake: never Patient Tobacco Use Status: Former Tobacco user e-Cigarette/Vaping Use: Never Used Second Hand Smoke Exposure: No Substance Use Type: Marijuana service: No Current occupational status: retired 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 Current occupational exposures/hazards: No Cognitive needs: No Hearing needs: No Vision needs: No Review of Systems Const Denies chills and Denies fever(s) Card Denies chest pain, Denies dyspnea and Denies dyspnea on exertion Resp Denies cough, Denies dyspnea and Denies dyspnea on exertion GI Denies hematochezia and Denies change in bowel habits Denies hematuria Musc Denies back pain and Denies limited range of motion Neuro Denies focal weakness and Denies convulsions Psych Denies depression and Denies mood swings Physical Exam Vital Signs: Last Vital Signs Pulse 89 01/22/25 10:52 BP 172/80 H 01/22/25 10:52 BMI result Body Mass Index 27.0 Const General: comfortable and no acute distress Orientation/consciousness: patient oriented x3 Neck Neck: Yes no lymphadenopathy Resp Auscultation: clear to auscultation bilaterally Cardio Rhythm: regular rhythm GI Other: Palpable hernia on the old colostomy site on the left hemiabdomen, obvious with Valsalva, probably about 3 cm Palpation (GI): Soft to palpation, nontender and no guarding Neuro General: patient oriented x3 Assessment & Plan Assessment & Plan (1) Incisional hernia: Code(s): K43.2 - Incisional hernia without obstruction or gangrene Category: Medical Plan: She has this reducible hernia on the old colostomy site. I explained the technique of repair with possible mesh placement. I reviewed the risks including but not limited to bleeding, infections, injury to other organs including bowel, recurrence, postop pain, as well as the benefits and alternatives. I also reviewed with her what to expect postoperatively She understands and agrees to proceed I will schedule her for a CAT scan of the abdomen and pelvis in the meantime to further define the hernia defect and allow planning for surgical approach. Orders: Orders CT abdomen pelvis wo IV con 01/22/25 K43.2 - Incisional hernia without obstruction or gangrene Coding Level of Care Code New Pt Level 3 (33207) Diagnoses Incisional hernia K43.2
[2025-01-22 10:52] VITALS: BP 172/80; PULSE 89; BMI 27.0
== END 2025-01-22 11:24 | disposition home or self-care (01) ==
LOC: HO.HGS 10:39
PROVIDERS: PCP Family Medicine; Visit Provider Surgery
DX: K43.2 Incisional hernia without obstruction or gangrene (principal)
CPT/HCPCS: 99203

== ENCOUNTER → 2025-01-22 10:38 | Outpatient (BNVA) | payer MEDICARE, SELFPAY | PROVIDERS: PCP Family Medicine; Visit Provider Surgery | DX: K43.2 Incisional hernia without obstruction or gangrene (principal) | CPT/HCPCS: 99202 ==

== ENCOUNTER 2025-02-10 13:46 | Outpatient (AMB) | payer MEDICARE, SELFPAY | END 2025-02-11 14:08 | disposition home or self-care (01) | LOC: HO.HMGAL 13:46 | PROVIDERS: PCP Family Medicine; Visit Provider Registered Nurse Emergency | DX: J30.89 Other allergic rhinitis (principal) | CPT/HCPCS: 95117; 95165 ==

== ENCOUNTER 2025-03-15 09:24 | Outpatient (REF) | payer MEDICARE, SELFPAY ==
--- NOTE | ~2025-03-15 | XR_ITS ---
EXAMINATION: XR HAND 3 OR MORE VIEWS LEFT HISTORY: S69.90XA - Unspecified injury of unspecified wrist, hand and finger(s), ... COMPARISON: Comparison is made with the prior examination dated 08/22/2023. FINDINGS: Three views of the left hand are submitted. The bones are osteopenic. There is an old healed fracture deformity of the distal radial metaphysis. Again seen is an old ulnar styloid fracture. There is no acute fracture or dislocation. Again seen is dorsal tilt of the lunate with dorsal subluxation of the distal carpal row. There are severe degenerative changes of the carpus, similar in appearance to the prior study. There is moderate to severe narrowing of the DIP and PIP joints. The soft tissues are unremarkable. XR/XR hand LT min 3V IMPRESSION: 1. Osteopenia. 2. Severe degenerative changes of the carpus as described without significant change. 3. Moderate to severe narrowing of the DIP and PIP joints. Electronically signed by: Elmo Bowden MD 03/17/2025 07:42 AM EDT
== END 2025-03-15 09:25 | disposition home or self-care (01) ==
LOC: HO.CT 09:24
PROVIDERS: PCP Family Medicine; Visit Provider Surgery
DX: K43.2 Incisional hernia without obstruction or gangrene (principal); M79.89 Other specified soft tissue disorders; S69.92XD Unspecified injury of left wrist, hand and finger(s), subsequent encounter
CPT/HCPCS: 73130; 74176

== ENCOUNTER → 2025-03-15 09:26 | Outpatient (BNV) | payer MEDICARE, SELFPAY | PROVIDERS: PCP Family Medicine; Visit Provider Radiology Diagnostic Radiology | DX: S69.92XA Unspecified injury of left wrist, hand and finger(s), initial encounter (principal); M85.842 Other specified disorders of bone density and structure, left hand; M18.9 Osteoarthritis of first carpometacarpal joint, unspecified | CPT/HCPCS: 73130 ==

== ENCOUNTER 2025-03-26 14:06 | Outpatient (AMB) | payer MEDICARE, SELFPAY | END 2025-03-26 14:08 | disposition home or self-care (01) | LOC: HO.HMGAL 14:06 | PROVIDERS: PCP Family Medicine; Visit Provider Registered Nurse Emergency | DX: J30.89 Other allergic rhinitis (principal) | CPT/HCPCS: 95117; 95165 ==

== ENCOUNTER 2025-03-27 11:42 | Outpatient (AMB) | payer MEDICARE, SELFPAY ==
--- NOTE | 2025-03-27 11:47 | MHC.OFFVIS ---
Vital Signs 03/27/25 11:50 Height 5 ft 1.25 in Weight 137 lb 5.568 oz BMI 25.7 BP 130/72 Blood Pressure Location Lt brachial Position Sitting Intake Visit Reasons: CT scan results Intake Note: This patient presents to discuss Ct-scan results. (03/18/2025) Pt c/o; here for results DI: 03/18/25 Abd/pelvis CT Ground [employer] We[employer] Officer Required: No Accompanied by: Self / Same As Patient Allergies mold Allergy (Verified 03/27/25 11:51) cONGESTION Dirt Allergy (Uncoded 03/27/25 11:51) Congestion HPI HPI CT scan results: Details: [age] year old female here for a follow-up for an incisional hernia. She had a laparotomy and colostomy for what she described as a perforated diverticulitis about 5 years ago in [place]. She says that her colostomy was eventually reversed about 8 months later She has noticed this lump on the area of her colostomy for a few years now. 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 She was therefore referred to me. She denies significant discomfort. She denies GI complaints. She says that she has had hernias repaired in the past on the area of her as well as on the right groin. I had sent her for a CAT scan to define this hernia and she is here to review this. [facility] Medical History Incisional hernia Pre-op evaluation Swelling of left hand Osteoarthritis Transaminitis Trigger finger, left ring finger Hand pain Bilateral shoulder pain Bilateral hip pain Back pain Foot pain Adult general medical exam Screening for colon cancer Breast cancer screening by mammogram Elevated liver enzymes Elevated fasting glucose Knee pain History of shingles Laboratory exam ordered as part of routine general medical examination Acute left flank pain Immunization counseling Osteoporosis History of kidney stones Diverticulitis Surgical History History of colostomy reversal H/O hand surgery History of hysterectomy History of tubal ligation History of hernia surgery History of carpal tunnel surgery H/O arthroscopic knee surgery Family History Family/Other Family history of autoimmune disorder Social History Housing: House Alcohol intake: never Patient Tobacco Use Status: Former Tobacco user e-Cigarette/Vaping Use: Never Used Second Hand Smoke Exposure: No Substance Use Type: Marijuana service: No Current occupational status: retired 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 The fascial defect seems to be about 3.8 cm. There is note of a nonobstructed small bowel loop within the hernia. I explained to her that it may be best to proceed with repair in view of the risk of incarceration and strangulation. I explained the technique of repair this incisional hernia with possible mesh placement. I explained the risks including but not limited to bleeding, infections, bowel injury, recurrence, postop pain, inherent risks of anesthesia, as well as the benefits and alternatives. I reviewed with her what to expect postoperatively She understands and wants to proceed. She is aware that she may need to stay overnight for pain control postop. This will depend on the actual size of the hernia. Coding Level of Care Code Est Pt Level 3 (17602) Diagnoses Incisional hernia K43.2
[2025-03-27 11:50] VITALS: BP 130/72; BMI 25.7
== END 2025-03-27 11:55 | disposition home or self-care (01) ==
LOC: HO.HGS 11:43
PROVIDERS: PCP Family Medicine; Visit Provider Surgery
DX: K43.2 Incisional hernia without obstruction or gangrene (principal)
CPT/HCPCS: 99213

== ENCOUNTER → 2025-03-27 11:42 | Outpatient (BNVA) | payer MEDICARE, SELFPAY | PROVIDERS: PCP Family Medicine; Visit Provider Surgery | DX: K43.2 Incisional hernia without obstruction or gangrene (principal); Z87.891 Personal history of nicotine dependence | CPT/HCPCS: 99212 ==

== ENCOUNTER 2025-04-02 10:40 | Outpatient (REF) | payer MEDICARE, SELFPAY | END 2025-04-02 10:41 | disposition home or self-care (01) | LOC: HO.MAMMO 10:40 | PROVIDERS: PCP Family Medicine; Visit Provider Family Medicine | DX: Z12.31 Encounter for screening mammogram for malignant neoplasm of breast (principal) | CPT/HCPCS: 77063; 77067 ==

== ENCOUNTER → 2025-04-02 10:45 | Outpatient (BNV) | payer MEDICARE, SELFPAY | PROVIDERS: PCP Family Medicine; Visit Provider Internal Medicine | DX: Z12.31 Encounter for screening mammogram for malignant neoplasm of breast (principal) | CPT/HCPCS: 77063; 77067 ==

== ENCOUNTER 2025-04-03 10:43 | Outpatient (REF) | payer MEDICARE, SELFPAY ==
[2025-04-03 13:55] LABS: MANUAL DIFF FLAG NO
[2025-04-03 14:02] LABS: Hematocrit 39.7 % (37.0-47.0); Hemoglobin 13.4 g/dl (12.0-16.0); Imm Gran Abs Auto 0.01 X10*3/uL (0.00-0.03); Imm Gran Pct Auto 0.2 % (0.0-0.4); Lymphocytes Absolute Auto 0.9 X10*3/uL (1.2-4.9); Mean Corpuscular HGB Conc 33.8 g/dl (31.0-35.0); Mean Corpuscular Hemoglobin 31.5 pg (27.0-33.0); Mean Corpuscular Volume 93.4 fL (80.0-98.0); NRBC Abs Auto 0.000 X10*3/uL (0.0-0.012); NRBC Pct Auto 0.0 /100WBC (0.0-0.2); Platelet Count 217 X10*3/uL (160-400); Red Blood Count 4.25 X10*6/uL (4.20-5.50); White Blood Count 5.3 X10*3/uL (4.8-10.8)
[2025-04-03 14:46] LABS: Alanine Aminotransferase 39 U/L (0-31); Albumin Level 3.8 g/dL (3.5-5.0); Alkaline Phosphatase 95 U/L (39-117); Anion Gap 13 (12-20); Aspartate Amino Transferase 46 U/L (5-31); Blood Urea Nitrogen 20 mg/dL (9-16); Calcium 9.3 mg/dL (8.4-10.2); Carbon Dioxide 26 mmol/L (22-29); Chloride 108 mmol/L (96-108); Cholesterol 141 mg/dL (<200); Estimated Glomerular Filt Rate > 60; HDL Cholesterol 35 mg/dL (>40); Potassium 3.8 mmol/L (3.3-5.1); Sodium 143 mmol/L (135-145); Total Protein 6.9 g/dL (6.5-8.0); Triglycerides 162 mg/dL (<150)
[2025-04-03 14:57] LABS: Folate 14.4 ng/mL (> or = 4.0); Vitamin B12 729 pg/mL (200-900)
[2025-04-03 17:53] LABS: Appearance Urine Cloudy; Glucose Urine UA Negative (Negative); PH 6.0 (5.0-9.0); Specific Gravity - Urine 1.015 (1.005-1.025); UMIC TRIGGER UACC YES
[2025-04-03 18:07] LABS: Microalbum/Creatinine Ratio Ur 6.9 ug/mg cr (<30)
[2025-04-03 18:25] LABS: UACC Culture Trigger YES
== END 2025-04-03 10:44 | disposition home or self-care (01) ==
LOC: HO.WFDLDS 10:43
PROVIDERS: Visit Provider Family Medicine
DX: Z00.00 Encounter for general adult medical examination without abnormal findings (principal); E53.8 Deficiency of other specified B group vitamins; E55.9 Vitamin D deficiency, unspecified; I10 Essential (primary) hypertension; R73.01 Impaired fasting glucose
CPT/HCPCS: 36415; 80053; 80061; 81001; 82043; 82306; 82570; 82607; 82746; 83036; 84443; 85025; 87086

== ENCOUNTER 2025-04-17 09:01 | Outpatient (AMB) | payer MEDICARE, SELFPAY ==
--- NOTE | 2025-04-17 09:06 | A.OFFPC_ITS ---
Vital Signs 04/17/25 09:12 Height 5 ft 1.25 in Weight 140 lb BMI 26.2 BP 132/63 Blood Pressure Location Lt brachial Position Sitting Respiration 16 Pulse 83 Pulse Source Pulse Oximeter Temp 98.2 F Temp Source Oral Pulse Oximetry (%) 98 Oxygen Delivery Method Room Air Intake Visit Reasons: CPE - see comments Intake Note: patient here for CPE Support Dba Required: No Is last menstrual period known: No Post menopausal: No Patient : No Allergies mold Allergy (Verified 04/17/25 09:10) cONGESTION Dirt Allergy (Uncoded 04/17/25 09:10) Congestion Tobacco use date assessed: 04/17/25 Fall risk assessment: No Falls in past year Last assessed Fall Risk: 04/17/25 Dental Screening Dental Screen Date: 04/17/25 Did you have a dental visit in the last 12 months?: Yes Did you have a dental problem in the last 6 months where you did not have access to dental care?: No Was dental information given to patient?: Patient has dentist HPI CPE - see comments HPI Details 69 y/o female presents for a CPE with f/ u labs and health maint. Blood pressure today 132/63, 83p. She is on irbesartan 150mg, metoprolol 25mg daily. CAT scan was reviewed which showed an incisional hernia on the old colostomy site on the left. She follows up with Dr. Pelaez. Labs drawn 04/03/25. Reviewed labs with pt. A1c 5.8%. Elevated liver enzymes - AST 46, ALT 39. Triglycerides 162. TC 141. LDL 74. HDL 35. Complaints of foot pain. [facility], [facility] Medical History Incisional hernia Pre-op evaluation Swelling of left hand Osteoarthritis Transaminitis Trigger finger, left ring finger Hand pain Bilateral shoulder pain Bilateral hip pain Back pain Foot pain Adult general medical exam Screening for colon cancer Breast cancer screening by mammogram Elevated liver enzymes Elevated fasting glucose Knee pain History of shingles Laboratory exam ordered as part of routine general medical examination Acute left flank pain Immunization counseling Osteoporosis History of kidney stones Diverticulitis Surgical History History of colostomy reversal H/O hand surgery History of hysterectomy History of tubal ligation History of hernia surgery History of carpal tunnel surgery H/O arthroscopic knee surgery Family History Family/Other Family history of autoimmune disorder Social History Housing: House Alcohol intake: never Patient Tobacco Use Status: Former Tobacco user e-Cigarette/Vaping Use: Never Used Second Hand Smoke Exposure: No Substance Use Type: Marijuana service: No Current occupational status: 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 1. Little interest or pleasure in doing things: more than half the days 2. Feeling down, depressed, or hopeless: several days 3. Trouble falling or staying asleep, or sleeping too much: not at all 4. Feeling tired or having little energy: several days 5. Poor appetite or overeating: not at all 6. Feeling bad about yourself - or that you are a failure or have let yourself or your family down: not at all 7. Trouble concentrating on things, such as reading the newspaper or watching television: several days 8. Moving or speaking so slowly that other people could have noticed. Or the opposite - being so fidgety or restless that you have been moving around a lot more than usual: not at all 9. Thoughts that you would be better off or of hurting yourself in some way: not at all Total score: 5 Depression Screening Interpretation: Negative Depression Screening Done: Yes 91079 - PHQ-9 Billing: Yes Source: Developed by Drs. Elmo Barahona, Tory Anderson, Derick Sahni and colleagues, with an educational ramirez from [employer]. Thrive Questionnaire Date Thrive assessed: 04/17/25 I am a: Patient What is your living situation today?: I have a steady place to live Within the past 12 months, did the food you bought not last and you didn't have the money to get more?: Never true Within the past 12 months, did you worry whether your food would run out before you got money to buy more?: Never true Do you have trouble paying for medicines?: No Do you have trouble getting transportation to medical appointments?: No Do you have trouble paying your heating and electricity bill?: No Do you have trouble taking care of your child, family member or friend?: No Do you have trouble with day-to-day activities such as bathing, preparing meals, shopping, managing finances, etc.?: No Are you currently unemployed and looking for a job?: No Are you interested in more education?: No Please select the resources that you would like help with: None Currently or been in a relationship where the following occur: No concerns reported THRIVE Score: 0 AUDIT C Alcohol Use Questionnaire (AUDIT-C) 1. How often do you have a drink containing alcohol?: Never 3. How often do you have six or more drinks on one occasion?: Never Total Score: 0 MILENA-7 AMB Questionnaire MILENA-7 Date MILENA - 7 assessed: 04/17/25 Feeling nervous, anxious, or on edge: 1 = Several days Not being able to stop or control worryin = Several days Worrying too much about different things: 1 = Several days Trouble relaxin = Not at all Being so restless that it is hard to sit still: 0 = Not at all Becoming easily annoyed or irritable: 0 = Not at all Feeling afraid as if something awful might happen: 0 = Not at all Total MILENA-7 score (0-4 normal; 5-9 mild; 10-14 moderate; 15-21 severe): 3 Source: Developed by Drs. Elmo Barahona, Tory Anderson, Derick Sahni and colleagues, with an educational ramirez from [employer]. MILENA-7 Assessment Billing MILENA-7 Assessment Tool: MILENA-7 Assessment 10867 Review of Systems Const Denies chills, Denies fatigue, Denies fever(s), Denies headache(s) and Denies weakness Eyes Denies change in vision ENT Denies dizziness, Denies headache(s), Denies hearing loss, Denies nasal congestion, Denies sinus pain, Denies sinus pressure and Denies sore throat Card Denies chest pain, Denies lightheadedness, Denies dyspnea and Denies other (palpitations) Resp Denies cough, Denies dyspnea and Denies wheezing GI Denies abdominal pain, Denies melena, Denies hematochezia, Denies change in bowel habits, Denies dyspepsia and Denies nausea Denies hematuria and Denies dysuria Musc Denies abnormal gait, Denies myalgias, Denies arthralgias, Denies numbness and Denies tingling Skin/Breast Denies rash, Denies unusual bruising and Denies wounds Neuro Denies abnormal gait, Denies dizziness, Denies headache(s), Denies memory loss, Denies numbness, Denies Sensory deficit (Neuro), Denies tingling and Denies weakness Psych Denies anxiety, Denies depression and Denies memory loss Endo Denies cold intolerance, Denies fatigue, Denies heat intolerance, Denies polydipsia and Denies polyuria Philippe/Lymph Denies easy bleeding and Denies easy bruising Aller/Immun Denies wheezing Physical exam (Primary Care) Vital Signs: Last Vital Signs Temp 98.2 F 04/17/25 09:12 Pulse 83 04/17/25 09:12 Resp 16 04/17/25 09:12 BP 132/63 04/17/25 09:12 Pulse Ox 98 04/17/25 09:12 Oxygen Delivery Method Room Air 04/17/25 09:12 BMI result Body Mass Index 26.2 Tobacco/Smoking Status: Tobacco use Status Tobacco use date assessed 04/17/25 04/17/25 09:17 Patient Tobacco Use Status Former Tobacco user 04/17/25 09:10 e-Cigarette/Vaping Use Never Used 04/17/25 09:10 PHQ-9: PHQ-9 Score PHQ-9: Total score 5 04/17/25 09:32 Depression Screening Interpretation: Negative Thrive Assessment: Date of Thrive Assessment Date Thrive assessed 04/17/25 04/17/25 09:19 Currently or been in a relationship where the following occur: No concerns reported Const General: no acute distress, well developed, alert and awake Nutritional Appearance: well nourished Orientation/consciousness: patient oriented x3 HENMT Head: Yes normocephalic and Yes atraumatic Ears: hearing grossly normal bilaterally and TM's normal bilaterally General nose exam: Normal external nose present and Normal nares present Mouth: Normal oral and palatal mucosa present and moist mucous membranes Teeth and gingiva: dentition normal Throat: Yes posterior oropharynx normal Eyes General: appearance normal, both eyes and all related structures Pupils: Equal, round and reactive pupils present and Pupil accommodation reflex normal EOM: EOMs intact bilaterally Neck Neck: Yes normal visual inspection, Yes no lymphadenopathy and Yes trachea midline Thyroid: Thyroid normal Carotids: no bruits Lymphatic: no lymphadenopathy noted Chest Chest palpation & inspection: normal inspection of the chest Resp Effort & Inspection: normal respiratory effort Auscultation: clear to auscultation bilaterally Cardio Rate: regular rate Rhythm: regular rhythm Heart sounds: S1 normal heart sound present, S2 normal heart sound present, no gallops, no murmurs and no rubs Bruits: no abdominal aortic bruits and no carotid bruits GI Palpation (GI): No Abdominal aortic bruit present, Soft to palpation, nontender, No hepatosplenomegaly present and No Rebound tenderness present Auscultation: normal bowel sounds General: Yes no CVA tenderness Back/Spine/Pelvis Back: no CVA tenderness Cervical Spine: cervical ROM normal and No Cervical spine tenderness Thoracic/Lumbar Spine: thoraco-lumbar ROM normal, No pain with thoraco-lumbar ROM, No thoracic spinal tenderness and No lumbar spinal tenderness Skin Lesions: no lesions Rashes: no rashes Trauma: no lacerations or abrasions Wounds: no wounds Nails: normal Neuro General: patient oriented x3 Cranial nerves: Yes Equal, round and reactive pupils present Cognition (Neuro): normal cognition Gait exam (Neuro): Normal gait present Motor exam (neuro): 5/5 motor strength present throughout Sensory Exam: No Sensory deficit (Neuro) Deep tendon reflexes (DTR's): Right patellar reflex intensity grade: 2+ and Left patellar reflex intensity grade: 2+ Extrem General: Yes normal to inspection and No edema Psych Appearance: grossly normal Affect: normal affect Attitude: cooperative Thought process: Normal thought process present Coding Level of Care Code Est Pt Level 3 (25032) Est Pt Prev Care >65y(74234) Diagnoses Adult general medical exam Z00.00 Essential hypertension I10 Incisional hernia K43.2 Elevated liver enzymes R74.8 Hyperlipidemia E78.5 Tinnitus H93.19 Left foot pain M79.672 Screening for osteoporosis Z13.820 Breast cancer screening by mammogram Z12.31 Complex renal cyst N28.1 Additional Codes MILENA-7 Assessment Billing - MILENA-7 Assessment Tool: MILENA-7 Assessment 14042 ([id number]) PHQ-9 - 47867 - PHQ-9 Billing: Yes ([id number]) Assessment & Plan Assessment & Plan (1) Adult general medical exam: Code(s): Z00.00 - Encounter for general adult medical examination without abnormal findings Category: Medical Plan: 69-year-old female presents for complete physical exam Encouraged healthy diet with active lifestyle and exercise as tolerated (2) Essential hypertension: Code(s): I10 - Essential (primary) hypertension Category: Medical Plan: Blood pressure is controlled. Goal is less than 140/90 Continue current medications (3) Incisional hernia: Code(s): K43.2 - Incisional hernia without obstruction or gangrene Category: Medical Plan: Patient is scheduled for surgery April 22 Follow-up with surgery as recommended (4) Elevated liver enzymes: Code(s): R74.8 - Abnormal levels of other serum enzymes Category: Medical Plan: Ongoing elevated liver enzymes She is followed by Gastroenterology Encouraged weight loss and good hydration (5) Hyperlipidemia: Code(s): E78.5 - Hyperlipidemia, unspecified Category: Medical Plan: LDL cholesterol is controlled. HDL is still too low. Encouraged exercise as tolerated (6) Tinnitus: Code(s): H93.19 - Tinnitus, unspecified ear Category: Medical Plan: Mild tinnitus and crackling sound in ear a week ago. Mild slack to TM on left Probable recent serous otitis or possible otitis media. Resolved. (7) Left foot pain: Code(s): M79.672 - Pain in left foot Plan: Patient has left lateral foot pain after rolling a trash barrel over her foot Check x-ray (8) Screening for osteoporosis: Code(s): Z13.820 - Encounter for screening for osteoporosis Category: Medical Plan: Bone density in 2023 showed osteoporosis She is on alendronate Will continue annual screening Q 2 years Up-to-date (9) Breast cancer screening by mammogram: Code(s): Z12.31 - Encounter for screening mammogram for malignant neoplasm of breast Category: Medical Plan: Recent mammogram negative for malignancy Continue annual screening (10) Complex renal cyst: Code(s): N28.1 - Cyst of kidney, acquired Category: Medical Plan: Recent noncontrast CT scan abdomen pelvis for hernia showed an incidental right 13 mm complex cyst. Contrast CT renal protocol ordered to evaluate. Orders: Orders CT abdomen pelvis wo/w IV con Today N28.1 - Cyst of kidney, acquired XR foot LT min 3V Today M79.672 - Pain in left foot Basic Metabolic Panel Today N28.1 - Cyst of kidney, acquired, Z00.00 - Encounter for general adult medical examination without abnormal findings Medications: New fluticasone propionate 50 mcg/actuation (Flonase Allergy Relief) administer into each nostril 1 spray intranasal Q12H 16 grams 2RF 30 days
[2025-04-17 09:12] VITALS: BP 132/63; PULSE 83; RESP 16; TEMP 36.8; O2SAT 98; BMI 26.2
== END 2025-04-17 09:52 | disposition home or self-care (01) ==
LOC: HO.HMCFM 09:02
PROVIDERS: PCP Family Medicine; Visit Provider Family Medicine
DX: Z00.00 Encounter for general adult medical examination without abnormal findings (principal); S99.921A Unspecified injury of right foot, initial encounter; M79.672 Pain in left foot; N28.1 Cyst of kidney, acquired

== ENCOUNTER → 2025-04-17 09:01 | Outpatient (BNVA) | payer MEDICARE, SELFPAY | PROVIDERS: PCP Family Medicine; Visit Provider Family Medicine | DX: Z00.00 Encounter for general adult medical examination without abnormal findings (principal); I10 Essential (primary) hypertension; K43.2 Incisional hernia without obstruction or gangrene; R74.8 Abnormal levels of other serum enzymes; E78.5 Hyperlipidemia, unspecified; H93.19 Tinnitus, unspecified ear; M79.672 Pain in left foot; N28.1 Cyst of kidney, acquired; Z13.31 Encounter for screening for depression; Z13.39 Encounter for screening examination for other mental health and behavioral disorders | CPT/HCPCS: 96127; 99212; 99397 ==

== ENCOUNTER 2025-04-22 11:31 | Inpatient (IN) | payer MEDICARE, SELFPAY ==
[2025-04-18 14:13] VITALS: BMI 25.7
[2025-04-22] VITALS (14 sets, daily range): BP systolic 101–158; BP diastolic 58–90; PULSE 75–102; RESP 14–21; TEMP 36.1–36.9; O2SAT 93–97; BMI 26.4; BMI 23.1
[2025-04-22] MEDS: Lactated Ringers 1,000 ML 100 ML IVCONT ×3 (09:20→23:13)
--- NOTE | 2025-04-22 09:36 | MHC.SHP ---
Pre-Procedural Eval Section A - 24 Hr Update-Section A only Date of Service: 04/22/25 The patient is an INPATIENT: No Changes since office visit: No Cold of Flu in the past 2 weeks, No New Medical Problems, No Changes in Medication and No Patient answered all questions The patient has been examined within 24 hours of the surgical procedure. The History & Physical has been completed within 30 days and I have reviewed it.: Yes Section B - Complete if H&P > 30 days Chief Complaint: Incisional hernia without obstruction or gangrene Allergies: Allergies Allergy/AdvReac Type Severity Reaction Status Date / Time mold Allergy cONGESTION Verified 04/17/25 09:10 Dirt Allergy Congestion Uncoded 04/17/25 09:10 Plan I have reviewed the history and physical and performed a pertinent physical examination on my patient. No changes have occurred unless specified. Time Spent With Patient Time: Total time managing care of this patient today ____ minutes.
--- NOTE | 2025-04-22 09:50 | HO.ANESPROP2 ---
Documented by User: Mariella Donovan NP 04/17/25 14:42 HPI - Anesthesia Eval Consult details Narrative: 69yo F for Repair Hernia Incisional Reducible with possible mesh 12/2024 - eval with PCP for preop cataract, deemed optimized with labs and EKG, >4 mets PMFSH Active Problems Active Problems: All Active Problems Foot pain (Acute) Breast cancer screening by mammogram (Acute) Screening for colon cancer (Acute) Tinnitus (Acute) Adult general medical exam (Acute) Complex renal cyst (Acute) Incisional hernia (Acute) Anxiety (Acute) Tremor (Acute) Pre-op evaluation (Acute) Swelling of left hand (Acute) Ventral hernia (Acute) Abdominal mass (Acute) Hernia (Acute) Mild dehydration (Acute) Elevated liver enzymes (Acute) CHÁVEZ (nonalcoholic steatohepatitis) (Acute) [place]-neck deformity of left finger(s) (Acute) 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 (Acute) Pre-diabetes (Acute) High risk medication use (Acute) Complex regional pain syndrome i of unspecified lower limb (Acute) Osteoporosis (Acute) Sacroiliitis (Acute) Chronic pain syndrome (Acute) Osteoarthritis, shoulder (Acute) Osteoarthritis, hip, bilateral (Acute) Bilateral pendulous breasts (Acute) Rheumatoid arthritis (Acute) Tachycardia (Acute) Abnormal urine findings (Acute) Fibromyalgia (Acute) Difficulty sleeping (Acute) Low HDL (under 40) (Acute) Migraine (Acute) Essential hypertension (Acute) Hyperlipidemia (Acute) Past Medical History Medical History (Updated 04/17/25 @ 09:46 by Abelardo Griffin) Foot pain Screening for colon cancer Breast cancer screening by mammogram Adult general medical exam Incisional hernia Pre-op evaluation Swelling of left hand Osteoarthritis Transaminitis Trigger finger, left ring finger Hand pain Bilateral shoulder pain Bilateral hip pain Back pain Elevated liver enzymes Elevated fasting glucose Knee pain History of shingles Laboratory exam ordered as part of routine general medical examination Acute left flank pain Immunization counseling Osteoporosis History of kidney stones Diverticulitis Family History Family History Family/Other Family history of autoimmune disorder Surgical History Surgical History History of colostomy reversal H/O hand surgery History of hysterectomy History of tubal ligation History of hernia surgery History of carpal tunnel surgery H/O arthroscopic knee surgery Social History Social History Housing: House Alcohol intake: never Patient Tobacco Use Status: Former Tobacco user e-Cigarette/Vaping Use: Never Used Second Hand Smoke Exposure: No Substance Use Type: Marijuana Have you been hit, kicked, punched, or otherwise hurt by someone within the past year? 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 Current occupational exposures/hazards: No Cognitive needs: No Hearing needs: No Vision needs: No Meds Allergies Allergy/AdvReac Type Severity Reaction Status Date / Time mold Allergy cONGESTION Verified 04/17/25 09:10 Dirt Allergy Congestion Uncoded 04/17/25 09:10 Home Medications ?Medication ?Instructions ?Recorded ?Confirmed ?Last Taken ?Type ferrous sulfate 325 mg (65 mg 325 mg PO DAILY 03/24/23 04/18/25 Unknown History iron) tablet (FeroSul) multivitamin 1 tab PO DAILY 03/24/23 04/18/25 Unknown History alendronate 70 mg tablet 70 mg PO QWEEK 04/24/24 04/18/25 Unknown History Exam Pertinent Lab Results Pertinent Lab Results: Laboratory Tests 04/03/25 10:46 WBC 5.3 Hgb 13.4 Hct 39.7 Plt Count 217 Sodium 143 Potassium 3.8 Chloride 108 Carbon Dioxide 26 BUN 20 H Creatinine 0.58 Assessment and Plan Assessment Anesthesia Assessment: Chart Reviewed Documented by User: Oxana Lew DO 04/22/25 09:51 PMFSH Past Medical History Medical History (Updated 04/17/25 @ 09:46 by Abelardo Griffin) Foot pain Screening for colon cancer Breast cancer screening by mammogram Adult general medical exam Incisional hernia Pre-op evaluation Swelling of left hand Osteoarthritis Transaminitis Trigger finger, left ring finger Hand pain Bilateral shoulder pain Bilateral hip pain Back pain Elevated liver enzymes Elevated fasting glucose Knee pain History of shingles Laboratory exam ordered as part of routine general medical examination Acute left flank pain Immunization counseling Osteoporosis History of kidney stones Diverticulitis Family History Family History Family/Other Family history of autoimmune disorder Family history of problems with anesthesia: No Surgical History Surgical History History of colostomy reversal H/O hand surgery History of hysterectomy History of tubal ligation History of hernia surgery History of carpal tunnel surgery H/O arthroscopic knee surgery History of Problems with Anesthesia: No Social History Social History Housing: House Alcohol intake: never Patient Tobacco Use Status: Former Tobacco user e-Cigarette/Vaping Use: Never Used Second Hand Smoke Exposure: No Substance Use Type: Marijuana Have you been hit, kicked, punched, or otherwise hurt by someone within the past year? 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 Current occupational exposures/hazards: No Cognitive needs: No Hearing needs: No Vision needs: No Meds Allergies Allergy/AdvReac Type Severity Reaction Status Date / Time mold Allergy cONGESTION Verified 04/17/25 09:10 Dirt Allergy Congestion Uncoded 04/17/25 09:10 Home Medications ?Medication ?Instructions ?Recorded ?Confirmed ?Last Taken ?Type ferrous sulfate 325 mg (65 mg 325 mg PO DAILY 03/24/23 04/18/25 Unknown History iron) tablet (FeroSul) multivitamin 1 tab PO DAILY 03/24/23 04/18/25 Unknown History alendronate 70 mg tablet 70 mg PO QWEEK 04/24/24 04/18/25 Unknown History Exam Exam Date and Time: 04/22/25944 Height,Weight and Vital Signs: Height 5 ft 1.25 in Weight 63.9 kg Vital Signs Temperature 98.5 F 04/22/25 09:01 Pulse Rate 102 H 04/22/25 09:01 Respiratory Rate 20 04/22/25 09:01 Blood Pressure 149/90 H 04/22/25 09:01 Pulse Oximetry 96 04/22/25 09:01 Oxygen Delivery Method Room Air 04/22/25 09:01 Temperature 98.5 F 04/22/25 09:01 Pulse Rate 102 H 04/22/25 09:01 Respiratory Rate 20 04/22/25 09:01 Blood Pressure 149/90 H 04/22/25 09:01 Pulse Oximetry 96 04/22/25 09:01 Oxygen Delivery Method Room Air 04/22/25 09:01 Airway Mallampati Class: I TM Dist: >3cm Neck ROM: Full Loose/Missing/Broken Teeth: Yes (several missing teeth and broken front tooth) Heart: S1S2 Lungs: CTAB Assessment and Plan Assessment Anesthesia Assessment: Anesthesia Plan Discussed and Chart Reviewed Final Anesthetic Review Family History of Problems with Anesthesia: No History of Problems with Anesthesia: No NPO: Yes ASA Class: II Final Preanesthetic Review: No Changes in Pt Med Stat, Meds/Allgs Chart Reviewed, Consent Obtained/Reviewed and Anes Risks/Benef Reviewed Patient Risk: Low Procedure Risk: Low Anesthetic Plan Anesthetic Plan: GA and Agree w/ Assess. and Plan Disposition: Standard PACU
--- NOTE | 2025-04-22 11:35 | W.PM.OPN ---
Operative Note Operative Note Date of Service: 04/22/25 Narrative: Preop diagnosis: Incisional hernia from previous colostomy site on the left Postop diagnosis: Incisional hernia from previous colostomy site in the left, extensive then adhesions involving small bowel loops, enterotomy of an adherent bowel loop Procedure: Repair of an incisional hernia, with extensive lysis of adhesions, repair of an enterotomy; difficult dissection Surgeon: Bob Pelaez MD events administrative assistant: DAYAMI Tejeda The patient is a 69-year-old female who has had multiple abdominal surgeries. She had a laparotomy for perforated diverticulitis more than 5 years ago in [place]. She had a colostomy then and eventually had a reversal. She says that she has noted a mass on her colostomy site for few years now and she says this has been causing her discomfort . She wants this repaired She also stated that has had repair of hernias as well. She does not recall which part of the abdominal wall she had this. She understood the technique of the planned procedure as was the risks, benefits, and alternatives. She was brought to the operating room. She was placed supine under general anesthesia via laryngeal mask airway. The abdomen was prepped and draped in the usual sterile fashion. A surgical time-out was done. The patient received cefazolin 2 g IV preoperatively I infiltrated the planned line of incision with lidocaine 1%. I made the incision on the old surgical scar on the colostomy site on the left with a blade 15. This was carried down carefully with through the full-thickness of the skin and subcutaneous fat with electrocautery. There was note of significant fibrosis from postop changes in the area. We are able to visualize the fascia by tracing this, I was able to feel what appeared to be the defect. There was note of sac with induration within. Hopefully dissected the sac off of the rest of the subcutaneous layer down to the fascia. I then proceeded carefully define the fascia and we started from most obvious area which appeared to be superior. I continued to define this fascial defect by carefully dissecting with Metzenbaum scissors to release adherent sac. We then noted that there was extensively adherent small bowel loops surrounding all sides of the fascial defect. At this point therefore we had to do very careful and extensive lysis of adhesions to separate all the small bowel loops from all sides of the fascial defect and the underside of the fascia. This part of the procedure took an extended period of time because of the extent of bowel loop involvement. We had to do careful mm by mm dissection We were able to achieve progress slowly but at 1 point, he had noted that there was a small enterotomy, less than 1 cm on 1 of the small bowel loops at the been very adherent. We therefore proceeded to repair this. I closed the enterotomy with running Polysorb 2-0 with full-thickness of the bowel wall. Then proceeded to do a 2nd layer of the repair with seromuscular Polysorb 3-0 simple sutures It appeared that we had good closure of the enterotomy at the end. There was no evidence of ischemia of the edges We then proceeded to continue to do extensive lysis of adhesions. We had to carefully release a lot of densely adherent small bowel loops from the surrounding side of the fascial defect. We had to release this to be able to achieve margins closure. At this time, we decided against using a mesh in view of the very limited margins as well as with of the enterotomy We continued to carefully clear just enough margins to allow us to do a primary closure. The fascial defect appeared to be about more than 4 cm in diameter I then proceeded to carefully closed this with full-thickness Maxon 1 sutures with care being taken so as to make sure that we were not catching any bowel loop with the application of the sutures. I irrigated. I then closed the skin with skin juaquin. The area was infiltrated with Marcaine 0.5% for postop analgesia. Dressings were applied and the procedure was completed The patient tolerated the procedure well. Initial and final counts of sponges and instruments were correct. Estimated blood loss was about 25 cc The patient was extubated without difficulty and transferred to the recovery room with stable vital signs.
--- NOTE | 2025-04-22 11:56 | PHA.MEDREC ---
Pharmacy Consult ? Medication Reconciliation Pharmacy has reviewed the medication reconciliation done by RN. OF NOTE: patient has no recently claims for fioricet, however patient has been prescribed it in the past. Patient takes PRN so patient could still have some left over.
--- NOTE | 2025-04-22 15:03 | PM.EVENT ---
Event Note Date of Service: 04/22/25 Event Note: Seen on afternoon rounds Status post repair incisional hernia, extensive lysis of adhesions, repair of enterotomy Seems to have good pain control Stable vital signs Abdomen is soft continue pain management Incentive spirometry On clear liquids currently Time Spent With Patient Time: Total time managing care of this patient today ____ minutes.
[2025-04-23 03:08] VITALS: BP 143/75; PULSE 81; RESP 18; TEMP 36.5; O2SAT 94
--- NOTE | 2025-04-23 05:46 | PC.NURSE ---
Pt seen on bed at shift change alert and oriented, conversant and claimed mild discomfort on abdl surgical site, dressing CDI, abd binder on, cold packs provided. Pt requested for Ambien , Jazmín Tejeda made aware, Ambien given at 2200 as per pt request, pt slept but for 2hrs , pt then restless with frequent trips to the BR to void all night, vitals WNL.
[2025-04-23 07:31] VITALS: BP 117/79; PULSE 72; RESP 16; TEMP 36.1; O2SAT 98
--- NOTE | 2025-04-23 07:33 | P.PNGS_ITS ---
Subjective Subjective Date of Service: 04/23/25 <Jazmín Tejeda PA-C - Last Filed: 04/23/25 07:36> 04/23/25 <Bob Pelaez MD - Last Filed: 04/23/25 08:16> Interval history: Reports did not sleep well, had a difficult night with her IV and her abdominal binder moving. Wants to go home. Tolerated clear liquids without nausea or vomiting. Mild incisional pain but controlled on IV tylenol. <Jazmín Tejeda PA-C - Last Filed: 04/23/25 07:36> Physical Exam Vital Signs: Vital Signs: Last Vital Signs Temp 97.7 F 04/23/25 03:08 Pulse 81 04/23/25 03:08 Resp 18 04/23/25 03:08 BP 143/75 H 04/23/25 03:08 Pulse Ox 94 04/23/25 03:08 O2 Del Method Room Air 04/23/25 03:08 O2 Flow Rate 6 04/22/25 11:52 BMI result Body Mass Index 23.1 <Jazmín Tejeda PA-C - Last Filed: 04/23/25 07:36> Const: General: comfortable, no acute distress and alert <JULIOCESAR Sullivan Last Filed: 04/23/25 07:36> Orientation/consciousness: patient oriented x3 <JULIOCESAR Sullivan Last Filed: 04/23/25 07:36> Resp: Effort & Inspection: normal respiratory effort <JULIOCESAR Sullivan Last Filed: 04/23/25 07:36> GI: Other: soft, nondistended dressing clean and intact abdominal binder in place mild incisional tenderness <JULIOCESAR Sullivan Last Filed: 04/23/25 07:36> Skin: General skin exam: no rashes or lesions noted <JULIOCESAR Sullivan Last Filed: 04/23/25 07:36> Neuro: General: patient oriented x3 and moves all extremities <JULIOCESAR Sullivan Last Filed: 04/23/25 07:36> Objective Data Active Medications Atorvastatin Calcium (Atorvastatin Calcium 80 Mg Tablet) 80 mg PO DAILY LORENE Calcium Carbonate (Calcium Carbonate 750 Mg Tab.Chew) 750 mg PO Q4H PRN PRN Reason: Heartburn Docusate Sodium (Docusate Sodium 100 Mg Capsule) 100 mg PO BID ON LICENSE OF [facility] Last Admin: 04/22/25 20:35 Dose: 100 mg Documented By: SABIHA Heparin Sodium (Porcine) (Heparin Sodium,Porcine 5,000 Unit/Ml Vial) 5,000 unit SUBCUT Q8H ON LICENSE OF [facility] Lactated Ringer's (Lr) 1,000 mls @ 100 mls/hr IVCONT .Q10H ON LICENSE OF [facility] Last Admin: 04/22/25 23:13 Dose: 100 mls/hr Documented By: SABIHA Acetaminophen (Ofirmev) 1,000 mg in 100 mls @ 400 mls/hr IV Q6H ON LICENSE OF [facility] Last Infusion: 04/23/25 05:00 Dose: Infused Documented By: SABIHA Magnesium Hydroxide (Milk Of Magnesia 30 Ml Oral.Susp) 30 ml PO DAILY PRN PRN Reason: Constipation Melatonin (Melatonin 3 Mg Tablet) 6 mg PO BEDTIME PRN PRN Reason: Insomnia Metoprolol Succinate (Metoprolol Succinate Er 25 Mg Tab.Er.24h) 25 mg PO DAILY ON LICENSE OF [facility]; Protocol Morphine Sulfate (Morphine Sulfate 4 Mg/Ml Cartridge) 3 mg IVPUSH Q3H PRN; Protocol PRN Reason: Pain, Severe (Pain Scale 7-10) Naloxone HCl (Naloxone Hcl 0.4 Mg/Ml Vial) 0.04 mg IVPUSH Q5M PRN PRN Reason: Excessive sedation or RR < 8 Oxycodone HCl (Oxycodone Hcl Immed Release 5 Mg Tablet) 5 mg PO Q4H PRN PRN Reason: Pain, Moderate(Pain Scale 4-6) Sodium Chloride (0.9 % Sodium Chloride Flush 3 Ml Syringe) 3 ml IVFLUSH QSHIFT ON LICENSE OF [facility] Last Admin: 04/23/25 00:15 Dose: Not Given Documented By: SABIHA Non-Admin Reason: IV Running Valsartan (Valsartan 80 Mg Tablet) 80 mg PO DAILY ON LICENSE OF [facility] Zolpidem Tartrate (Zolpidem Tartrate 5 Mg Tablet) 5 mg PO BEDTIME PRN PRN Reason: Insomnia Last Admin: 04/22/25 22:14 Dose: 5 mg Documented By: SABIHA <Jazmín Tejeda PA-C - Last Filed: 04/23/25 07:36> Procedures Date of Service Date of Service: 04/23/25 <Jazmín Tejeda PA-C - Last Filed: 04/23/25 07:36> 04/23/25 <Bob Pelaez MD - Last Filed: 04/23/25 08:16> Progress Note: A&P Assessment and plan (1) History of incisional hernia repair: Status: Acute <Jazmín Tejeda PA-C - Last Filed: 04/23/25 07:36> Assessment and Plan: Feels well She says she is passing flatus Good pain control Abdomen is soft and benign Advance diet and see how she does later on We will re-evaluate Patient says she is ready to be discharged Seen and examined independently <Bob Pelaez MD - Last Filed: 04/23/25 08:16> Assessment and Plan: POD #1 s/p repair of an incisional hernia, with extensive lysis of adhesions, repair of an enterotomy; difficult dissection. Admitted for pain control. Overall doing well post op, pain well controlled. VSS. ABd exam benign with appropriate post op tenderness, dressing clean and intact. Will advance to solid diet, encouraged OOB and ambulation. Will reassess later today for dc to home if tolerating solid diet. patient comfortable with plan. <Jazmín Tejeda PA-C - Last Filed: 04/23/25 07:36> Time Spent With Patient Time: Total time managing care of this patient today ____ minutes. <Jazmín Tejeda PA-C - Last Filed: 04/23/25 07:36> Quality Stroke Does the patient have a stroke diagnosis?: No <Jazmín Tejeda PA-C - Last Filed: 04/23/25 07:36> VTE Prior VTE?: No <Jazmín Tejeda PA-C - Last Filed: 04/23/25 07:36> VTE Risk Level:: Medical - moderate - high <JULIOCESAR Sullivan Last Filed: 04/23/25 07:36> VTE Device Contraindication: N/A - Device Ordered <JULIOCESAR Sullivan Last Filed: 04/23/25 07:36> VTE Drug Contraindication: N/A - Med Ordered <Jazmín Tejeda PA-C - Last Filed: 04/23/25 07:36>
--- NOTE | 2025-04-23 08:30 | HO.POSTANES ---
Post Anesthesia Evaluation Post Anesthesia Evaluation Date of Service: 04/23/25 Vital Signs: Vital Signs Temp Pulse Resp BP Pulse Ox O2 Del Method 04/23/25 07:31 96.9 F 72 16 117/79 98 Room Air 04/23/25 03:08 97.7 F 81 18 143/75 H 94 Room Air 04/22/25 23:26 97.8 F 75 18 117/58 L 95 Room Air Anesthesia: General Mental Status: Awake Pain Control: Satisfactory Nausea/Vomiting: None Hydration: Adequate Anesthesia-Related Issues: No Anes. Related Issues
[2025-04-23] MEDS: Metoprolol Succinate ER 25 MG TAB.ER.24H PO (08:47)
--- NOTE | 2025-04-23 10:22 | MHC.CM.PN ---
pt loves alone is inepedent has a ride home dc plan home n/s
--- NOTE | 2025-04-23 14:08 | MHC.CM.PN ---
pt dcd home self care
--- NOTE | 2025-04-23 14:45 | PM.EVENT ---
Event Note Date of Service: 04/23/25 Event Note: Seen on afternoon rounds She has been tolerating her diet She had bowel movements and flatus Abdomen is soft and benign She looks well clinically and has been ambulating She says she feels ready to be discharged Okay to CT home on pain medications Instructed on good wound care Follow up in the office, no lifting allowed Time Spent With Patient Time: Total time managing care of this patient today ____ minutes.
--- NOTE | 2025-04-23 15:01 | P.DS_ITS ---
DS: Providers Provider Date of Service: 04/23/25 Date of admission: 04/22/25 11:31 Date of discharge: 04/23/25 Primary care physician: Ha Griggs MD Attending physician on admission: Bob Pelaez Attending physician on discharge: Bob Pelaez DS: Diagnosis Discharge Diagnosis (1) History of incisional hernia repair: Status: Acute DS: Summary Hospital Course Hospital Course: HPI AT ADMISSION: [age] year old female here for a follow-up for an incisional hernia. She had a laparotomy and colostomy for what she described as a perforated diverticulitis about 5 years ago in [place]. She says that her colostomy was eventually reversed about 8 months later. She has noticed this lump on the area of her colostomy for a few years now. 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 She was therefore referred to me. She denies significant discomfort. She denies GI complaints. She says that she has had hernias repaired in the past on the area of her as well as on the right groin. I had sent her for a CAT scan to define this hernia and she is here to review this which showed an incisional hernia on the old colostomy site on the left, fascial defect seems to be about 3.8 cm with note of a nonobstructed small bowel loop within the hernia. I explained to her that it may be best to proceed with repair in view of the risk of incarceration and strangulation. I explained the technique of repair this incisional hernia with possible mesh placement. She now presents for the planned procedure. HOSPITAL COURSE: On 04/22/25, Repair of an incisional hernia, with extensive lysis of adhesions, repair of an enterotomy, difficult dissection was performed by Dr. Pelaez. The patient tolerated the procedure well. In light of the difficulty procedure she was admitted post operatively for observation. She was started on clear liquids. She did well post operatively and had an uncomplicated post operative course. She had minimal incisional pain. She was tolerating clear liquids. She was advanced to a solid diet. She had good GI function and was moving her bowels. Her abdomen was benign with dressing clean and intact, appropriate post op tenderness. She was hemodynamically stable. She was discharged to home on 04/23/25 in stable condition with heavy lifting restrictions. She is to follow up in the office 2 weeks. Status at Discharge Functional status at discharge: independent ambulation Overall status at discharge: patient is progressing back to baseline Time Attestation Discharge Coordination Time (in mins): 25 Quality: Safe Use of Opioids Does Pt have an Active Cancer Diagnosis on the Problem List?: No Quality: Stroke Does the patient have a stroke diagnosis?: No Physical Exam Vital Signs: Vital Signs: Last Vital Signs Temp 96.9 F 04/23/25 07:31 Pulse 72 04/23/25 07:31 Resp 16 04/23/25 07:31 BP 117/79 04/23/25 07:31 Pulse Ox 98 04/23/25 07:31 O2 Del Method Room Air 04/23/25 07:31 O2 Flow Rate 6 04/22/25 11:52 BMI result Body Mass Index 23.1 Const: General: comfortable, no acute distress and alert Orientation/consciousness: patient oriented x3 Resp: Effort & Inspection: normal respiratory effort GI: Other: soft Inspection: Yes incision (dressing clean and intact) Palpation (GI): Tenderness to palpation present (GI) (very mild incisional) and no guarding Skin: General skin exam: no rashes or lesions noted Neuro: General: patient oriented x3 and moves all extremities Discharge Plan Discharge Anticipated Discharge Date/Time: 04/23/25 13:44 Patient Disposition: Home, Self-Care Discharge Diagnosis: s/p incisional hernia repair Referrals: Ha Griggs MD [Primary Care Provider, Internal Medicine] - 1 Week Bob Pelaez MD [Physician, General Surgery] - 2 Weeks Discharge Medications: New tramadol 50 mg tablet 50 mg PO Q4H PRN (Reason: pain (scale score 7-10)) Qty: 14 0RF docusate sodium [Colace] 100 mg capsule 100 mg PO BID PRN (Reason: constipation) Qty: 30 0RF Continued irbesartan 150 mg tablet 150 mg PO QAM 90 Days Qty: 90 1RF cholecalciferol (vitamin D3) 25 mcg (1,000 unit) capsule 25 mcg PO DAILY Qty: 90 1RF metoprolol succinate 25 mg tablet extended release 24 hr 25 mg PO DAILY 90 Days Qty: 90 3RF atorvastatin 80 mg tablet 80 mg PO DAILY 90 Days Qty: 60 0RF zolpidem 10 mg tablet 5 - 10 mg PO BEDTIME PRN (Reason: sleep) 30 Days Qty: 30 0RF tramadol 50 mg tablet 50 mg PO DAILY PRN (Reason: pain) zlwbmczeio-vpsiqkysufzbx-aekh 50-325-40 mg tablet 1 - 2 tab PO DAILY PRN (Reason: pain/headache) 30 Days Qty: 10 0RF fluticasone propionate [Flonase Allergy Relief] 50 mcg/actuation spray,suspension 1 spray intranasal Q12H 30 Days Qty: 16 2RF Rx Instructions: administer into each nostril ferrous sulfate [FeroSul] 325 mg (65 mg iron) tablet 325 mg PO DAILY multivitamin Tablet 1 tab PO DAILY alendronate 70 mg tablet 70 mg PO QWEEK Discharge Orders: Discharge Order (Routine); Ordered 04/23/25 Ordered By: Jazmín Tejeda Diet: Advance to usual diet Activity on Discharge: No heavy lifting Stand Alone Forms: Patient Portal Discharge page Print Language: Somali Activity Restrictions/Additional Instructions: If the incision area is tender, you may apply an ice pack for short intervals (No more than 20 minutes on, followed by at least 20 minutes off). Do not apply heat. Do not use creams, lotions, or topical antibiotics. These can cause infection or allergic reaction. Ok to shower. You have juaquin closing your incision and these will be removed approximately 10-14 days after surgery. NO HEAVY LIFTING (>10lbs) or strenuous activity. Follow up in office in 2 weeks. ([phone]) Call Your Doctor If: -Your temperature exceeds 101.5? F -You experience excessive pain or swelling -You have an unexpected reaction to medication -You have excessive bleeding -You experience continued vomiting/nausea -Your incision begins to separate -Your incision shows signs of infection such as increased redness, swelling, excessive pain, drainage (light blood or clear fluid is normal) or heat Care Plan Goals: Return to baseline health and resume normal activities following recovery period. Health Concerns: incisional hernia Plan of Treatment: s/p repair of incisional hernia, extensive lysis of adhesions Pain control, small meals throughout the day. No heavy lifting, wear abdominal binder. Follow up in the office in 2 weeks. Assessment: Doing well post op. Discharge Date/Time: 04/23/25 15:08
== END 2025-04-23 15:08 | disposition home or self-care (01) | DRG 331 ==
LOC: HO.SSSA 12:05 → HO.S3 12:18
PROVIDERS: Admitting Provider Surgery; PCP Family Medicine; Visit Provider Surgery
PROC: 0DQ80ZZ Repair Small Intestine, Open Approach (ICD-10-PCS; CPT 49593; principal; 2025-04-22 11:10)
DX: K43.2 Incisional hernia without obstruction or gangrene (principal); K66.0 Peritoneal adhesions (postprocedural) (postinfection); Z87.891 Personal history of nicotine dependence; Z79.899 Other long term (current) drug therapy
CPT/HCPCS: 49593; 44005; J0131; J0690; J1100; J1171; J1644; J2003; J2371; J2405; J2704; J2795; J3010; J7120

== ENCOUNTER → 2025-04-22 11:31 | Outpatient (BNV) | payer MEDICARE, SELFPAY | PROVIDERS: Admitting Provider Surgery; PCP Family Medicine; Visit Provider Surgery | DX: Z98.890 Other specified postprocedural states (principal); Z87.19 Personal history of other diseases of the digestive system | CPT/HCPCS: 49594; 99024; 99499 ==

== ENCOUNTER 2025-05-06 09:26 | Outpatient (AMB) | payer MEDICARE, SELFPAY ==
--- NOTE | 2025-05-06 09:28 | MHC.OFFVIS ---
Vital Signs 05/06/25 09:44 Height 5 ft 1 in Weight 138 lb BMI 26.1 BP 164/91 H Blood Pressure Location Lt brachial Position Sitting Pulse 97 Intake Visit Reasons: s/p incisional hernia poss mesh Intake Note: Patient is seen in office for one month follow up visit, post incisional hernia repair. Pt c/o: denies any concerns, juaquin removed at visit surgery:04/22/25 () Bruise Trimmer Required: No Accompanied by: Self / Same As Patient Allergies mold Allergy (Verified 05/06/25 09:44) cONGESTION Dirt Allergy (Uncoded 05/06/25 09:44) Congestion HPI HPI s/p incisional hernia poss mesh: Details: Overall doing very well. Reports some occasional sharp pulling sensation lateral to the incision site but otherwise denies significant pain. She does have some constipation but is trying to manage this with increasing fiber in her diet and kmwb-blt-iwbcwez supplements. She has been avoiding heavy lifting. Has no concerns. Denies fevers or chills PFSH Medical History Foot pain Screening for colon cancer Breast cancer screening by mammogram Adult general medical exam Incisional hernia Pre-op evaluation Swelling of left hand Osteoarthritis Transaminitis Trigger finger, left ring finger Hand pain Bilateral shoulder pain Bilateral hip pain Back pain Elevated liver enzymes Elevated fasting glucose Knee pain History of shingles Laboratory exam ordered as part of routine general medical examination Acute left flank pain Immunization counseling Osteoporosis History of kidney stones Diverticulitis Surgical History History of incisional hernia repair (04/22/25) History of colostomy reversal H/O hand surgery History of hysterectomy History of tubal ligation History of hernia surgery History of carpal tunnel surgery H/O arthroscopic knee surgery Family History Family/Other Family history of autoimmune disorder Social History Household Members: None Housing: House Do you presently have visiting nurse or other home services: No Alcohol intake: never Patient Tobacco Use Status: Former Tobacco user e-Cigarette/Vaping Use: Never Used Second Hand Smoke Exposure: No Substance Use Type: Marijuana service: No Current occupational status: 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 Appears to be healing well, no erythema or fluid collection. Nontender. Neuro General: patient oriented x3 Assessment & Plan Assessment & Plan (1) History of incisional hernia repair: Onset Date: 04/22/25 Comment: with extensive lysis of adhesions, repair of an enterotomy; difficult dissection- Bob Pelaez MD Code(s): Z98.890 - Other specified postprocedural states; Z87.19 - Personal history of other diseases of the digestive system Category: Medical Plan 69-year-old female s/p incisional hernia repair with extensive lysis of adhesions, repair of a small enterotomy and difficult dissection with Dr. Pelaez on 04/22/25 returning to the office for follow up. Overall patient has been doing well, denies any significant pain. Does endorse an occasional sharp twinge but this is manageable, and has had similar feelings with her previous hernia repairs. Otherwise appetite is good, she does have some constipation but has been avoiding straining and trying to increase fiber through her diet and supplements to continue with soft stools. On exam the incision site appears to be healing well, there was some moderate induration deep to the incision likely scar tissue and postsurgical changes. Incision site is clean dry and intact, no concern for infection at this time there was some moderate scabbing, I have instructed her to avoid picking this off at this time, she is okay to shower and pat dry this area. Should soften up over the next few days to weeks and follow up. We will continue with activity restrictions until at least her next appointment. She is agreeable to this plan. She will return in 3 weeks for follow up. Can return sooner if needed Coding Level of Care Code Est Pt Level 3 (13838) Diagnoses History of incisional hernia repair Z98.890; Z87.19
[2025-05-06 09:44] VITALS: BP 164/91; PULSE 97; BMI 26.1
== END 2025-05-06 09:56 | disposition home or self-care (01) ==
LOC: HO.HGS 09:26
PROVIDERS: PCP Family Medicine
DX: Z98.890 Other specified postprocedural states (principal); Z87.19 Personal history of other diseases of the digestive system
CPT/HCPCS: 99213

== ENCOUNTER → 2025-05-06 09:26 | Outpatient (BNVA) | payer MEDICARE, SELFPAY | PROVIDERS: PCP Family Medicine | DX: R10.9 Unspecified abdominal pain (principal); K59.00 Constipation, unspecified; Z87.891 Personal history of nicotine dependence; Z98.890 Other specified postprocedural states; Z87.19 Personal history of other diseases of the digestive system | CPT/HCPCS: 99212 ==

== ENCOUNTER 2025-05-19 15:21 | Outpatient (REF) | payer MEDICARE, SELFPAY ==
[2025-05-19 18:32] LABS: MANUAL DIFF FLAG NO
[2025-05-19 19:04] LABS: Hematocrit 40.8 % (37.0-47.0); Hemoglobin 13.4 g/dl (12.0-16.0); Imm Gran Abs Auto 0.02 X10*3/uL (0.00-0.03); Imm Gran Pct Auto 0.3 % (0.0-0.4); Lymphocytes Absolute Auto 0.9 X10*3/uL (1.2-4.9); Mean Corpuscular HGB Conc 32.8 g/dl (31.0-35.0); Mean Corpuscular Hemoglobin 31.2 pg (27.0-33.0); Mean Corpuscular Volume 95.1 fL (80.0-98.0); NRBC Abs Auto 0.000 X10*3/uL (0.0-0.012); NRBC Pct Auto 0.0 /100WBC (0.0-0.2); Platelet Count 261 X10*3/uL (160-400); Red Blood Count 4.29 X10*6/uL (4.20-5.50); White Blood Count 6.0 X10*3/uL (4.8-10.8)
[2025-05-19 19:46] LABS: Alanine Aminotransferase 31 U/L (0-31); Albumin Level 3.7 g/dL (3.5-5.0); Alkaline Phosphatase 125 U/L (39-117); Anion Gap 10 (12-20); Aspartate Amino Transferase 54 U/L (5-31); Blood Urea Nitrogen 19 mg/dL (9-16); Calcium 9.6 mg/dL (8.4-10.2); Carbon Dioxide 27 mmol/L (22-29); Chloride 108 mmol/L (96-108); Cholesterol 121 mg/dL (<200); Estimated Glomerular Filt Rate > 60; HDL Cholesterol 24 mg/dL (>40); Potassium 4.1 mmol/L (3.3-5.1); Sodium 141 mmol/L (135-145); Total Protein 7.2 g/dL (6.5-8.0); Triglycerides 224 mg/dL (<150)
[2025-05-19 19:52] LABS: Appearance Urine Cloudy; Glucose Urine UA Negative (Negative); PH 6.5 (5.0-9.0); Specific Gravity - Urine 1.025 (1.005-1.025); UMIC TRIGGER UACC YES
[2025-05-19 20:59] LABS: UACC Culture Trigger YES
[2025-05-19 21:00] LABS: Other Crystals Urine Present
[2025-05-20 13:44] LABS: Lyme Blot 6.89 index
[2025-05-21 09:28] LABS: Lyme Abs Screen POSITIVE
[2025-05-21 22:53] LABS: 39KD (IgG) Band REACTIVE; 41KD (IgG) Band REACTIVE; Lyme IgG Blot Interp NEGATIVE (NEGATIVE); Lyme IgM Blot Interp POSITIVE (NEGATIVE)
== END 2025-05-19 15:22 | disposition home or self-care (01) ==
LOC: HO.WFDLDS 15:21
PROVIDERS: Referring Provider Student in an Organized Health Care Education/Training Program; Visit Provider Family Medicine
DX: Z00.00 Encounter for general adult medical examination without abnormal findings (principal); Z13.6 Encounter for screening for cardiovascular disorders; M06.09 Rheumatoid arthritis without rheumatoid factor, multiple sites; W57.XXXA Bitten or stung by nonvenomous insect and other nonvenomous arthropods, initial encounter
CPT/HCPCS: 36415; 80053; 80061; 81001; 81003; 85025; 85652; 86140; 86617; 86618; 87086

== ENCOUNTER 2025-05-21 10:29 | Outpatient (AMB) | payer MEDICARE, SELFPAY ==
--- NOTE | 2025-05-21 10:32 | MHC.PC.OV ---
Vital Signs 05/21/25 10:37 Height 5 ft 1 in Weight 139 lb BMI 26.3 BP 129/63 Blood Pressure Location Lt brachial Position Sitting Respiration 16 Pulse 72 Pulse Source Pulse Oximeter Temp 98.0 F Temp Source Oral Pulse Oximetry (%) 97 Oxygen Delivery Method Room Air Intake Visit Reasons: f/u chronic conditions Intake Note: patient here for follow up on chronic conditions. patient thinks she might have [place], she had gotten bit by a tick the last week of march. Cloth Bale Header Required: No Is last menstrual period known: No Post menopausal: No Patient : No Allergies mold Allergy (Verified 05/21/25 10:35) cONGESTION Dirt Allergy (Uncoded 05/21/25 10:35) Congestion Medication List - Last Reconciled 05/21/25 by Ha Griggs MD alendronate 70 mg PO QWEEK atorvastatin 80 mg PO DAILY 90 days qnkosshyih-babxjnqhguoid-bwzr 50-325-40 mg 1 - 2 tabs PO DAILY PRN 30 days cholecalciferol (vitamin D3) 25 mcg PO DAILY docusate sodium (Colace) 100 mg PO BID PRN ferrous sulfate (FeroSul) 325 mg PO DAILY fluticasone propionate 50 mcg/actuation (Flonase Allergy Relief) 1 spray intranasal Q12H 30 days irbesartan 150 mg PO QAM 90 days metoprolol succinate ER 25 mg PO DAILY 90 days multivitamin 1 tab PO DAILY tramadol 50 mg PO Q4H PRN tramadol 50 mg PO DAILY PRN 30 days zolpidem 5 - 10 mg (0.5 - 1 x 10 mg) PO BEDTIME PRN 30 days Tobacco use date assessed: 05/21/25 Fall risk assessment: No Falls in past year Last assessed Fall Risk: 05/21/25 Dental Screening Dental Screen Date: 05/21/25 Did you have a dental visit in the last 12 months?: Yes Did you have a dental problem in the last 6 months where you did not have access to dental care?: No Was dental information given to patient?: Patient has dentist HPI f/u chronic conditions HPI Details 69 y/o female presents to f/u chronic conditions. Recent tick bite. Reports an expanding rash, burning sensation of her skin. Denies any fevers. Renal cyst and had ordered a CT scan. She has not heard back from anyone yet. [facility] Medical History Foot pain Screening for colon cancer Breast cancer screening by mammogram Adult general medical exam Incisional hernia Pre-op evaluation Swelling of left hand Osteoarthritis Transaminitis Trigger finger, left ring finger Hand pain Bilateral shoulder pain Bilateral hip pain Back pain Elevated liver enzymes Elevated fasting glucose Knee pain History of shingles Laboratory exam ordered as part of routine general medical examination Acute left flank pain Immunization counseling Osteoporosis History of kidney stones Diverticulitis Surgical History History of incisional hernia repair (04/22/25) History of colostomy reversal H/O hand surgery History of hysterectomy History of tubal ligation History of hernia surgery History of carpal tunnel surgery H/O arthroscopic knee surgery Family History Family/Other Family history of autoimmune disorder Social History Household Members: None Housing: House Do you presently have visiting nurse or other home services: No Alcohol intake: never Patient Tobacco Use Status: Former Tobacco user e-Cigarette/Vaping Use: Never Used Second Hand Smoke Exposure: No Substance Use Type: Marijuana service: No Current occupational status: retired 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 Current occupational exposures/hazards: No Cognitive needs: No Hearing needs: No Vision needs: No Questionnaire Thrive Questionnaire Date Thrive assessed: 07/13/24 I am a: Patient What is your living situation today?: I have a steady place to live Within the past 12 months, did the food you bought not last and you didn't have the money to get more?: Never true Within the past 12 months, did you worry whether your food would run out before you got money to buy more?: Never true Do you have trouble paying for medicines?: No Do you have trouble getting transportation to medical appointments?: No Do you have trouble paying your heating and electricity bill?: No Do you have trouble taking care of your child, family member or friend?: No Do you have trouble with day-to-day activities such as bathing, preparing meals, shopping, managing finances, etc.?: No Are you currently unemployed and looking for a job?: No Are you interested in more education?: No Please select the resources that you would like help with: None Currently or been in a relationship where the following occur: No concerns reported THRIVE Score: 0 MILENA-7 AMB Questionnaire MILENA-7 Date MILENA - 7 assessed: 04/17/25 Source: Developed by Drs. Elmo Barahona, Tory Anderson, Derick Sahni and colleagues, with an educational ramirez from [employer]. Review of Systems Const Denies chills, Denies fatigue, Denies fever(s), Denies headache(s) and Denies weakness ENT Denies dizziness and Denies headache(s) Card Denies dyspnea Resp Denies cough, Denies dyspnea, Denies wheezing and Denies other (shortness of breath) Musc Denies numbness and Denies tingling Skin/Breast Reports rash Neuro Denies dizziness, Denies headache(s), Denies numbness, Denies tingling and Denies weakness Psych Denies anxiety and Denies depression Endo Denies fatigue Aller/Immun Denies wheezing Physical exam (Primary Care) Vital Signs: Last Vital Signs Temp 98.0 F 05/21/25 10:37 Pulse 72 05/21/25 10:37 Resp 16 05/21/25 10:37 BP 129/63 05/21/25 10:37 Pulse Ox 97 05/21/25 10:37 Oxygen Delivery Method Room Air 05/21/25 10:37 BMI result Body Mass Index 26.3 Tobacco/Smoking Status: Tobacco use Status Tobacco use date assessed 05/21/25 05/21/25 10:42 Patient Tobacco Use Status Former Tobacco user 05/21/25 10:33 e-Cigarette/Vaping Use Never Used 05/21/25 10:33 Thrive Assessment: Date of Thrive Assessment Date Thrive assessed 07/13/24 05/21/25 10:33 Currently or been in a relationship where the following occur: No concerns reported Const General: well developed; No acute distress Nutritional Appearance: well nourished Orientation/consciousness: patient oriented x3 HENMT Head: Yes normocephalic and Yes atraumatic Eyes General: appearance normal, both eyes and all related structures Pupils: Equal, round and reactive pupils present EOM: EOMs intact bilaterally Resp Effort & Inspection: normal respiratory effort Neuro General: patient oriented x3 and gait normal Cranial nerves: Yes Equal, round and reactive pupils present Psych Affect: normal affect Coding Level of Care Code Est Pt Level 4 (57277) Diagnoses Tick bite W57.XXXA Rash R21 Renal cyst N28.1 Assessment & Plan Assessment & Plan (1) Tick bite: Code(s): W57.XXXA - Bitten or stung by nonvenomous insect and other nonvenomous arthropods, initial encounter Category: Medical Plan: Tick bite and expanding rash. Not typical appearing rash however given positive tick bite in rash as well as preliminary positive Lyme screen, will have her start doxycycline treatment Will follow-up Lyme tests and call patient if she can discontinue this. (2) Rash: Code(s): R21 - Rash and other nonspecific skin eruption Category: Medical Plan: As above If overall Lyme testing is negative, will discuss other treatments such as a course of Benadryl and prednisone. (3) Renal cyst: Code(s): N28.1 - Cyst of kidney, acquired Category: Medical Plan: 13 mm renal cyst and I have ordered a CT scan with renal protocol. This has not been scheduled and no internal messaging shows attempts to reach patient. She says she has not been called. Asking office to get her scheduled. BMP is also ordered which she can have drawn prior to scan. Medications: New doxycycline hyclate 100 mg PO BID 56 tabs 0RF 28 days
[2025-05-21 10:37] VITALS: BP 129/63; PULSE 72; RESP 16; TEMP 36.7; O2SAT 97; BMI 26.3
== END 2025-05-21 11:44 | disposition home or self-care (01) ==
LOC: HO.HMCFM 10:30
PROVIDERS: PCP Family Medicine; Visit Provider Family Medicine
DX: T63.481A Toxic effect of venom of other arthropod, accidental (unintentional), initial encounter (principal); R21 Rash and other nonspecific skin eruption; N28.1 Cyst of kidney, acquired

== ENCOUNTER → 2025-05-21 10:29 | Outpatient (BNVA) | payer MEDICARE, SELFPAY | PROVIDERS: PCP Family Medicine; Visit Provider Family Medicine | DX: R21 Rash and other nonspecific skin eruption (principal); N28.1 Cyst of kidney, acquired; T14.8XXD Other injury of unspecified body region, subsequent encounter; W57.XXXD Bitten or stung by nonvenomous insect and other nonvenomous arthropods, subsequent encounter | CPT/HCPCS: 99212 ==

== ENCOUNTER 2025-05-30 11:35 | Outpatient (AMB) | payer MEDICARE, SELFPAY ==
--- NOTE | 2025-05-30 11:40 | A.OFFVIS_ITS ---
Vital Signs 05/30/25 11:45 Height 5 ft 1 in Weight 140 lb BMI 26.4 BP 144/65 H Blood Pressure Location Lt brachial Position Sitting Pulse 92 Intake Visit Reasons: CHÁVEZ Intake Note: Samantha presents in the office as a follow up for CHÁVEZ. CC: she states that she was tested for LYME and placed on doxycycline - she states that she is still in pains. She states that she has not had results to her labs and is a bit concerned. Insect Control Inspector Required: No Allergies mold Allergy (Verified 05/30/25 11:47) cONGESTION Dirt Allergy (Uncoded 05/30/25 11:47) Congestion HPI HPI CHÁVEZ: Details: Assessment & Plan (1) CHÁVEZ (nonalcoholic steatohepatitis): Comment: BASELINE LABS 07/06/23 11:40 WBC 4.5 L Hgb 14.6 Hct 42.0 Plt Count 201 Estimated GFR > 60 Total Bilirubin 0.8 AST 36 H ALT 39 H Alkaline Phosphatase 88 C-Reactive Protein 0.17 02/14/23 09:50 Hepatitis A IgM Ab Nonreactive Hep Bs Antigen Negative Hep Bs Antibody NONREACTIVE Hep B Core Total Ab Nonreactive Hepatitis C Ab (EIA) Nonreactive 11/07/23 12:25 Ferritin 201 GGT 21 Alpha Fetoprotein 2.6 TONY Screen POSITIVE A TONY Titer 1:320 H TONY Pattern Nuclear, Homogeneous A Anti-Mitochondrial Ab NEGATIVE Anti-Smooth Muscle Ab <20 HIV 1&2 Ab/P24 Ag 4thGn Nonreactive US ABD WITH ELASTOGRAPHY 09/12/23 (F1-F2) CURRENT LABS 10/04/2503/23/25 10:1816:21 Estimated GFR > 60 Hgb A1c (Clinic) 5.8 Total Bilirubin 0.7 AST 48 H ALT 42 H Alkaline Phosphatase 93 US ABD WITH ELASTOGRAPHY 09/12/23 (F1-F2) IMPRESSION: 1. Liver elastography: Measurements are suggestive of compensated advanced chronic liver disease but need further test for confirmation. 2. The gallbladder is surgically absent. Code(s): K75.81 - Nonalcoholic steatohepatitis (CHÁVEZ) Category: Medical Plan She gained some wt over the holidays, she is trying to lose it and maintain her wt. She is also told she is pre diabetic. All of these things c/t her liver health. Her [employer] discovered she has a LLQ hernia, it is where she had a colostomy in the h past, she will be having an US for this soon. she has a hx of 3 past hernias in other area. I will try to get our surveillance ultrasound combined with the ultrasound ordered by her primary care's diagnose for possible left lower quadrant hernia. We review her liver labs and I let her know they have increased mildly. She does not seem to be sure why this is but it might be that she was eating richer food over the holidays. She expresses extreme difficulty losing weight. ROV 6 mos. Orders: Orders US abdomen complete Today K75.81 - Nonalcoholic steatohepatitis (CHÁVEZ) Laboratory Tests 05/19/25 15:20 Estimated GFR > 60 Total Bilirubin 0.9 AST 54 H ALT 31 Alkaline Phosphatase 125 H Ultrasound of the abdomen 11/21/2024 FINDINGS: Atherosclerotic plaque present along the nonaneurysmal abdominal aorta causing areas of greater than 50 percent grayscale stenosis. Visualized portions of the IVC are unremarkable. The visualized portions of the pancreas appear normal. The liver has mildly heterogeneous echotexture. The main portal vein is antegrade. Liver, right lobe size: 13.4 cm, normal. Status post cholecystectomy Common bile duct: 1.0 cm, within normal limits given cholecystectomy. No choledocholithiasis identified. Right kidney: Cortical medullary differentiation is maintained. Poorly visualized lesion of the inferior pole of the right kidney measuring 1.5 x 0.8 x 1.2 cm. No definite increased acoustic enhancement. Lesion appearance isoechoic to the adjacent renal parenchyma. No hydronephrosis. Right kidney length: 9.7 cm Left kidney: Cortical medullary differentiation is maintained. No calculus or focal parenchymal abnormality identified. No hydronephrosis. Left kidney length: 9.7 cm The spleen has normal echogenicity. Splenic length: 14.1 cm, enlarged. No free intraperitoneal fluid identified. IMPRESSION: 1. Mildly heterogeneous echotexture of the liver. No hepatic lesion identified. 2. Splenomegaly. 3. Exophytic lesion along the inferior pole of the right kidney measuring up to 1.5 cm may represent a renal cyst although this is poorly characterized on current imaging. Recommend comparison with prior imaging if available. If none available, recommend repeat renal ultrasound or renal protocol CT or MR for further characterization. CT ABDOMEN AND PELVIS 03/18/2025 Findings: The lung bases are clear. The spleen is enlarged measuring 15 cm in length. There is a 13 mm complex cyst arising from the right kidney. Remaining abdominal organs are unremarkable. There has been a prior cholecystectomy. There is a focus of colo colonic anastomosis at the level of the sigmoid colon. There is a ventral hernia containing a short segment of small bowel within the anterior abdominal wall at the level of the left lower quadrant. This is likely a site of prior colostomy takedown. There is no evidence of associated obstructive change. There is moderate fecal retention within the colon. There is a mild degree of mesenteric and retroperitoneal lymphadenopathy. Mesenteric lymph nodes measure up to 9 mm in short axis dimension. Retroperitoneal lymph nodes measure up to 1.5 cm in short axis dimension. Prior hysterectomy. Unremarkable urinary bladder. Appendix not definitively seen. No secondary findings to suggest appendicitis. Prior pelvic hernia repair. No acute fracture. There is severe calcific plaque formation within major arteries. There is no aneurysm. IMPRESSION: 1. There is a ventral hernia at the level of the left lower quadrant. This contains a short segment of small bowel without associated obstruction or edema. 2. Mild mesenteric and retroperitoneal lymphadenopathy. 3. Severe calcific plaque formation within major arteries. TODAY'S VISIT [facility] Medical History Foot pain Screening for colon cancer Breast cancer screening by mammogram Adult general medical exam Incisional hernia Pre-op evaluation Swelling of left hand Osteoarthritis Transaminitis Trigger finger, left ring finger Hand pain Bilateral shoulder pain Bilateral hip pain Back pain Elevated liver enzymes Elevated fasting glucose Knee pain History of shingles Laboratory exam ordered as part of routine general medical examination Acute left flank pain Immunization counseling Osteoporosis History of kidney stones Diverticulitis Surgical History History of incisional hernia repair (04/22/25) History of colostomy reversal H/O hand surgery History of hysterectomy History of tubal ligation History of hernia surgery History of carpal tunnel surgery H/O arthroscopic knee surgery Family History Family/Other Family history of autoimmune disorder Social History Household Members: None Housing: House Do you presently have visiting nurse or other home services: No Alcohol intake: never Patient Tobacco Use Status: Former Tobacco user e-Cigarette/Vaping Use: Never Used Second Hand Smoke Exposure: No Substance Use Type: Marijuana service: No Current occupational status: retired 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 Current occupational exposures/hazards: No Cognitive needs: No Hearing needs: No Vision needs: No Physical Exam Vital Signs: Last Vital Signs Pulse 92 05/30/25 11:45 BP 144/65 H 05/30/25 11:45 BMI result Body Mass Index 26.4 Assessment & Plan Assessment & Plan (1) CHÁVEZ (nonalcoholic steatohepatitis): Comment: BASELINE LABS 07/06/23 11:40 WBC 4.5 L Hgb 14.6 Hct 42.0 Plt Count 201 Estimated GFR > 60 Total Bilirubin 0.8 AST 36 H ALT 39 H Alkaline Phosphatase 88 C-Reactive Protein 0.17 02/14/23 09:50 Hepatitis A IgM Ab Nonreactive Hep Bs Antigen Negative Hep Bs Antibody NONREACTIVE Hep B Core Total Ab Nonreactive Hepatitis C Ab (EIA) Nonreactive 11/07/23 12:25 Ferritin 201 GGT 21 Alpha Fetoprotein 2.6 TONY Screen POSITIVE A TONY Titer 1:320 H TONY Pattern Nuclear, Homogeneous A Anti-Mitochondrial Ab NEGATIVE Anti-Smooth Muscle Ab <20 HIV 1&2 Ab/P24 Ag 4thGn Nonreactive US ABD WITH ELASTOGRAPHY 09/12/23 (F1-F2) CURRENT LABS 10/04/2503/23/25 10:1816:21 Estimated GFR > 60 Hgb A1c (Clinic) 5.8 Total Bilirubin 0.7 AST 48 H ALT 42 H Alkaline Phosphatase 93 US ABD WITH ELASTOGRAPHY 09/12/23 (F1-F2) IMPRESSION: 1. Liver elastography: Measurements are suggestive of compensated advanced chronic liver disease but need further test for confirmation. 2. The gallbladder is surgically absent. Code(s): K75.81 - Nonalcoholic steatohepatitis (CHÁVEZ) Category: Medical Plan Subjective Patient presents for follow-up, reporting recent diagnosis of Lyme disease and o ngoing liver follow-up. She had a tick bite approximately 1?2 weeks prior to her 04/22 hernia surgery; later noted diffuse skin discoloration across the back and chest. Lyme serologies returned positive, and doxycycline was started on 05/21 with a planned 28-day course through the end of May. She reports clinical improvement. She had one episode of emesis after taking a dose without food; since then has taken doses with food and has not had recurrence. She describes one night of fever and one night of diaphoresis earlier in the course, now resolved. She underwent hernia repair on 04/22 and reports intermittent mild discomfort at the prior colostomy site, attributed to scar tissue/adhesions; adjusting clothing (high-waisted) helps. She maintains stable weight, avoids alcohol, and denies diabetes. She also reports prior cataract surgery; ophthalmology noted a small ocular cyst and floaters and plans annual follow-up. Objective - Liver labs stable; liver imaging assessment stable per today?s review. - Abdominal ultrasound overall reassuring aside from previously known left lower quadrant hernia, now status post repair. 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 - Lyme serologies positive (including confirmatory testing). Assessment & Plan Lyme disease: Confirmed Lyme seropositivity with compatible symptom history. Clinically improving on doxycycline. - Continue doxycycline as prescribed to complete a 28-day course through end of May. - Take with food to minimize gastrointestinal upset; resume regular dosing schedule after any missed/vomited dose per tolerance. - Monitor for recurrent fever, worsening rash, new neurologic, cardiac, or joint symptoms; seek care if these occur. Liver condition ? stable: Current labs and imaging stable; no decompensation or new concerns discussed today. - Continue alcohol avoidance and weight maintenance. - No medication changes today. - Routine surveillance and follow-up in 6 months. 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 - Proceed with interval imaging surveillance as planned by primary team; MRI may be considered based on next study. - Anticipate imaging frequency every 6?12 months depending on subsequent results. Status post hernia repair (04/22): Healing with intermittent mild discomfort consistent with scar/adhesions. - Supportive measures as needed; adjust clothing for comfort. Return if pain worsens or new symptoms develop. Follow-up: 6 months, or sooner as needed. Coding Level of Care Code Est Pt Level 3 (91920) Diagnoses CHÁVEZ (nonalcoholic steatohepatitis) K75.81
[2025-05-30 11:45] VITALS: BP 144/65; PULSE 92; BMI 26.4
== END 2025-05-30 12:30 | disposition home or self-care (01) ==
LOC: HO.HGI 11:36
PROVIDERS: PCP Family Medicine; Visit Provider Nurse Practitioner
DX: K75.81 Nonalcoholic steatohepatitis (NASH) (principal)
CPT/HCPCS: 99213

== ENCOUNTER → 2025-05-30 11:35 | Outpatient (BNVA) | payer MEDICARE, SELFPAY | PROVIDERS: PCP Family Medicine; Visit Provider Nurse Practitioner | DX: K75.81 Nonalcoholic steatohepatitis (NASH) (principal) | CPT/HCPCS: 99212 ==